=== PATIENT | female | born 1945 | race Caucasian/White ===

== ENCOUNTER 2020-08-04 18:35 | Emergency (ER) | payer MEDICARE, MEDICAID, SELFPAY ==
--- NOTE | ~2020-08-04 | XR_ITS ---
EXAMINATION: XR FOOT, RIGHT CLINICAL INFORMATION: Great toe infection. COMPARISON: Right foot radiographs dated 04/30/2016. TECHNIQUE: AP, lateral, and oblique views of the right foot. FINDINGS: Diffuse osteopenia. No displaced fracture. No dislocation. No significant joint space narrowing or marginal osteophytes. No osseous erosion. Small plantar calcaneal spur. XR/XR foot RT min 3V IMPRESSION: Diffuse osteopenia. No displaced fracture or dislocation. No osseous erosion or periosteal reaction.
[2020-08-04 19:58] VITALS: BP 192/67; PULSE 98; RESP 18; TEMP 36.8; O2SAT 96; BMI 26.4
[2020-08-04 21:25] LABS: MANUAL DIFF FLAG NO
--- NOTE | 2020-08-04 21:27 | ED_ITS ---
HPI - Extremity Injury (Lower) General Chief Complaint: Extremity Injury, Lower Stated Complaint: toe infection Time Seen by Provider: 08/04/20 21:15 Source: patient Mode of arrival: ambulatory Limitations: no limitations History of Present Illness HPI Narrative: Patient comes emergency room complaining of an embedded toenail on the great toe right foot. Patient states she has been on doxycycline for 1.5 weeks. Patient reports localized pain, no fever no chills, mild redness around the embedded toenail. Related Data Allergies Allergy/AdvReac Type Severity Reaction Status Date / Time ibuprofen [From ADVIL] Allergy Severe DUE TO Verified 08/04/20 19:58 CVA-BLEED tramadol [TRAMADOL] Allergy Severe UNKNOWN Verified 08/04/20 19:58 amoxicillin [AMOXICILLIN] Allergy Mild RASH Verified 08/04/20 19:58 Penicillins [PENICILLINS] Allergy Mild RASH Verified 08/04/20 19:58 oxycodone [Percocet] Allergy Unknown Difficulty Verified 08/04/20 19:58 Breathing From PERCOCET Allergy Severe DIFFICULTY Uncoded 11/19/19 14:35 BREATHING, INCREASED HEART RATE From ALEVE AdvReac Severe DUE TO Uncoded 11/19/19 14:35 CVA-BLEED Review of Systems Review of Systems: Constitutional : No Weight loss, No Fever, No Chills, No Night Sweats, No Fatigue, No Malaise ENT/Mouth : No Hearing loss, No Ear Pain, No Nasal Congestion, No Sinus Pain, No Hoarseness, No sore throat, No Rhinorrhea, No Swallowing Difficulty Eyes: No Eye Pain, No Swelling, No Redness, No Foreign Body, No Discharge, No Vision Changes Cardiovascular : No Chest Pain, No SOB, No Dyspnea on Exertion, No Orthopnea, No Edema, No Palpitations Respiratory : No Cough, No Sputum, No Wheezing, No Smoke Exposure, No Dyspnea Gastrointestinal : No Nausea, No Vomiting, No Diarrhea, No Constipation, No abdominal Pain, No Hematochezia, No Melena Genitourinary : no irregular bleeding, No Dysuria, No Urinary Frequency, No Hematuria, No Urinary Incontinence, No Urgency, No Flank Pain, No Urinary Flow Changes, No Hesitancy Musculoskeletal : No joint pain, No Myalgias, No Joint Swelling Skin : No Skin Lesions, embedded toenail on the medial aspect of the right great toe Neuro : No Weakness, No Numbness, No Paresthesias, No Loss of Consciousness, No Dizziness, No Headache Psych : No Anxiety/Panic, No Depression, No SI/HI/AH/VH, No Social Issues, Heme/Lymph: No Bruising, No Bleeding,No Lymphadenopathy Endocrine : No Polyuria, No Polydipsia, No Temperature Intolerance [facility] Past Medical History Medical History Cervical vertebral fusion Parathyroid adenoma Stroke Surgical History H/O: hysterectomy Social History Social History Advance Directives: No Advance Directives Information Provided: No Physical Exam Vital Signs: Vital Signs: Last Vital Signs Temp 98.2 F 08/04/20 19:58 Pulse 98 08/04/20 19:58 Resp 18 08/04/20 19:58 BP 192/67 H 08/04/20 19:58 Pulse Ox 96 08/04/20 19:58 Body Mass Index 26.4 Appearance: Alert. Oriented X3. No acute distress. Eyes: Pupils equal, round and reactive to light. ENT: Pharynx normal. Neck: Normal inspection. Neck supple. No lymph nodes noted. No crepitus CVS: Normal heart rate and rhythm. Pulses normal. Normal S1 and S2 Respiratory: No respiratory distress. Breath sounds normal. No Wheezing. No rales Abdomen: Soft and nontender. No rigidity. No distention. good BS x4 Skin: Skin warm and dry. Embedded toenail in the medial aspect of the right 1st toe is, mild localized redness Extremities: No lower extremity edema. No lower extremity edema. No Lacerations. No Rash Neuro: Oriented X 3. No motor deficit. No sensory deficit. Moving all extermities. No slurred speech. Course Course Course Narrative: Topical 4% lidocaine was applied ice to the affected area, patient tolerated well the procedure, the corner of the toenail was removed successfully. Patient reports no pain when pressing her toe. Patient instructed to finish a course of antibiotics. Patient given bacitracin topical MDM - Extremity Injury (Lower) Lab Data Result diagrams: 08/04/20 21:19 08/04/20 21:19 Labs: Lab Results 08/04/20 08/04/20 08/04/20 Range/Units 21:19 21:19 21:19 WBC 5.0 (4.8-10.8) X10*3/uL RBC 4.30 (4.20-5.50) X10*6/uL Hgb 12.9 (12.0-16.0) g/dl Hct 38.8 (37-47) % MCV 90.2 (80-98) fL MCH 30.0 (27.0-33.0) pg MCHC 33.2 (31.0-35.0) g/dl RDW 13.7 (11.0-16.0) % Plt Count 246 (160-400) X10*3/uL MPV 10.8 (9.4-12.3) fL Immature Gran % (Auto) 0.6 H (0.0-0.4) % Neut % (Auto) 55.5 (45-73) % Lymph % (Auto) 35.3 (20-40) % [place] % (Auto) 7.8 (2-11) % Eos % (Auto) 0.6 (0-4) % Baso % (Auto) 0.2 (0-2) % Lymph # (Auto) 1.8 (1.2-4.9) X10*3/uL [place] # (Auto) 0.4 (0.1-1.2) X10*3/uL Eos # (Auto) 0.0 (0.0-0.4) X10*3/uL Baso # (Auto) 0.0 (0.0-0.2) X10*3/uL Abs Immat Gran (auto) 0.03 (0.00-0.03) X10*3/uL Absolute Neuts (auto) 2.8 (2.0-8.3) X10*3/uL Absolute Nucleated RBC 0.000 (0.0-0.012) X10*3/uL Nucleated RBC % (auto) 0.0 (0.0-0.2) /100WBC Sodium 143 (135-145) mmol/L Potassium 3.5 (3.3-5.1) mmol/L Chloride 104 (96-108) mmol/L Carbon Dioxide 25 (22-29) mmol/L Anion Gap 18 (12-20) BUN 9 (9-16) mg/dL Creatinine 0.69 (0.5-1.4) mg/dL Estim Creat Clear Calc 59.3 Estimated GFR > 60 Random Glucose 128 H (60-115) mg/dL Lactic Acid 2.0 (0.5-2.0) mmol/L Calcium 9.3 (8.4-10.2) mg/dL Total Bilirubin 1.2 H (0.0-1.0) mg/dL AST 32 H (5-31) U/L ALT 36 H (0-31) U/L Alkaline Phosphatase 70 (39-117) U/L Total Protein 7.2 (6.5-8.0) g/dL Albumin 4.3 (3.5-5.0) g/dL Discharge Plan Discharge Clinical Impression: Embedded toenail Patient Disposition: Home, Self-Care Instructions: Ingrown Nail (ED) Additional Instructions: Please follow-up with your primary care physician tomorrow and with 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 If you have any worsening or new symptoms, please return to the emergency room or call 911
[2020-08-04 21:31] LABS: Basophils Percent Auto 0.2 % (0-2); Eosinophils Percent Auto 0.6 % (0-4); Hematocrit 38.8 % (37-47); Hemoglobin 12.9 g/dl (12.0-16.0); Imm Gran Abs Auto 0.03 X10*3/uL (0.00-0.03); Imm Gran Pct Auto 0.6 % (0.0-0.4); Lymphocytes Absolute Auto 1.8 X10*3/uL (1.2-4.9); Lymphocytes Percent Auto 35.3 % (20-40); Mean Corpuscular HGB Conc 33.2 g/dl (31.0-35.0); Mean Corpuscular Volume 90.2 fL (80-98); Mean Platelet Volume 10.8 fL (9.4-12.3); Monocytes Absolute Auto 0.4 X10*3/uL (0.1-1.2); Monocytes Percent Auto 7.8 % (2-11); Neutrophils Absolute Auto 2.8 X10*3/uL (2.0-8.3); Neutrophils Percent Auto 55.5 % (45-73); Platelet Count 246 X10*3/uL (160-400); Red Cell Distribution Width 13.7 % (11.0-16.0)
[2020-08-04 21:51] LABS: Alanine Aminotransferase 36 U/L (0-31); Albumin Level 4.3 g/dL (3.5-5.0); Alkaline Phosphatase 70 U/L (39-117); Anion Gap 18 (12-20); Aspartate Amino Transferase 32 U/L (5-31); Bilirubin Total 1.2 mg/dL (0.0-1.0); Blood Urea Nitrogen 9 mg/dL (9-16); Calcium 9.3 mg/dL (8.4-10.2); Carbon Dioxide 25 mmol/L (22-29); Chloride 104 mmol/L (96-108); Creatinine Clr Calc Pharmacy 59.3; Estimated Glomerular Filt Rate > 60; Glucose Random 128 mg/dL (60-115); Potassium 3.5 mmol/L (3.3-5.1); Sodium 143 mmol/L (135-145); Total Protein 7.2 g/dL (6.5-8.0)
[2020-08-04] MEDS: Lidocaine 4 % Cream KIT 1 APPL TOPICAL (23:32)
== END 2020-08-04 23:37 | disposition home or self-care (01) ==
PROVIDERS: Emergency Provider Emergency Medicine; PCP Internal Medicine
DX: L60.0 Ingrowing nail (principal); M85.871 Other specified disorders of bone density and structure, right ankle and foot; Z86.73 Personal history of transient ischemic attack (TIA), and cerebral infarction without residual deficits
CPT/HCPCS: 11765; 36415; 73630; 80053; 83605; 85025; 87040; 99284

== ENCOUNTER 2020-11-11 14:28 | Outpatient (REF) | payer MEDICARE, MEDICAID, SELFPAY ==
--- NOTE | ~2020-11-11 | US_ITS ---
EXAMINATION: US EXTRACRANIAL CAROTID DUPLEX, BILATERAL CLINICAL INFORMATION: History of hypertension, hyperlipidemia, CVA, carotid artery disease status post right endarterectomy in January 2018. COMPARISON: 11/03/2019, 11/10/2018, 05/14/2018 TECHNIQUE: Real-time ultrasound and Doppler techniques (integrating B-mode 2-D vascular images, Doppler spectral analysis and color-flow Doppler imaging) were utilized to interrogate the extracranial carotid arteries, the vertebral arteries and proximal subclavian arteries bilaterally. The degree of stenosis is determined by criteria similar to NASCET. FINDINGS: Right Side: 1. There is moderate atherosclerotic plaque seen in the bifurcation/proximal ICA region. 2. The common carotid artery PSV proximally is 108 cm/s and distally 111 cm/s. 3. The proximal internal carotid artery velocities are 130 cm/s systolic and 28 cm/s diastolic. 4. The proximal external carotid artery PSV is 166 cm/s. 5. The vertebral artery shows antegrade flow. 6. The subclavian artery waveforms are normal. Left Side: 1. There is moderate atherosclerotic plaque seen in the bifurcation/proximal ICA region. 2. The common carotid artery PSV proximally is 99 cm/s and distally 76 cm/s. 3. The proximal internal carotid artery velocities are 253 cm/s systolic and 44 cm/s diastolic. 4. The proximal external carotid artery PSV is 280 cm/s. 5. The vertebral artery shows antegrade flow. 6. The subclavian artery waveforms are normal. US/US carotid duplex BI IMPRESSION: 1. RIGHT: Moderate, hemodynamically significant stenosis of the proximal right internal carotid artery corresponding to a 50-79% stenosis by velocity criteria. The category of disease has increased from the 2020 comparison. (Previously 0-49% stenosis). 2. LEFT: Moderate, hemodynamically significant stenosis of the proximal left internal carotid artery corresponding to a 50-79% stenosis by velocity criteria. The category of disease is stable from the 2020 comparison. 3. Moderate hemodynamically significant stenosis of the left external carotid artery is stable. 4. Normal bilateral subclavian artery velocities and waveforms.
== END 2020-11-11 14:29 | disposition home or self-care (01) ==
LOC: HO.HMGCX 14:28
PROVIDERS: PCP Internal Medicine; Visit Provider Surgery Vascular Surgery
DX: I65.21 Occlusion and stenosis of right carotid artery (principal)
CPT/HCPCS: 93880

== ENCOUNTER → 2020-11-21 10:25 | Outpatient (BNVA) | payer MEDICARE, MEDICAID, SELFPAY | PROVIDERS: PCP Internal Medicine; Referring Provider Internal Medicine; Visit Provider Internal Medicine Cardiovascular Disease | DX: I65.29 Occlusion and stenosis of unspecified carotid artery (principal); I69.30 Unspecified sequelae of cerebral infarction; I10 Essential (primary) hypertension | CPT/HCPCS: 93005; 99212 ==

== ENCOUNTER → 2020-12-20 11:15 | Outpatient (BNVA) | payer MEDICARE, MEDICAID, SELFPAY | PROVIDERS: PCP Internal Medicine; Visit Provider Surgery Vascular Surgery | DX: I65.29 Occlusion and stenosis of unspecified carotid artery (principal) | CPT/HCPCS: 99212 ==

== ENCOUNTER 2021-01-03 10:16 | Outpatient (REF) | payer MEDICARE, MEDICAID, SELFPAY ==
[2021-01-03 11:27] LABS: MANUAL DIFF FLAG NO
[2021-01-03 11:33] LABS: Basophils Percent Auto 0.8 % (0-2); Eosinophils Absolute Auto 0.1 X10*3/uL (0.0-0.4); Eosinophils Percent Auto 1.5 % (0-4); Hemoglobin 13.7 g/dl (12.0-16.0); Imm Gran Abs Auto 0.03 X10*3/uL (0.00-0.03); Imm Gran Pct Auto 0.6 % (0.0-0.4); Lymphocytes Absolute Auto 2.7 X10*3/uL (1.2-4.9); Lymphocytes Percent Auto 51.7 % (20-40); Mean Corpuscular HGB Conc 33.4 g/dl (31.0-35.0); Mean Corpuscular Hemoglobin 30.2 pg (27.0-33.0); Mean Corpuscular Volume 90.5 fL (80.0-98.0); Mean Platelet Volume 11.2 fL (9.4-12.3); Monocytes Absolute Auto 0.4 X10*3/uL (0.1-1.2); Monocytes Percent Auto 6.9 % (2-11); Neutrophils Absolute Auto 1.99 x10*3/uL (2.0-8.3); Neutrophils Percent Auto 38.5 % (45-73); Platelet Count 192 X10*3/uL (160-400); Red Blood Count 4.53 X10*6/uL (4.20-5.50); Red Cell Distribution Width 13.5 % (11.0-16.0); White Blood Count 5.2 X10*3/uL (4.8-10.8)
[2021-01-03 12:09] LABS: Vitamin D 25-OH Total 25.6 ng/mL (>30)
[2021-01-03 12:21] LABS: Alanine Aminotransferase 15 U/L (0-31); Albumin Level 4.5 g/dL (3.5-5.0); Alkaline Phosphatase 72 U/L (39-117); Anion Gap 15 (12-20); Aspartate Amino Transferase 19 U/L (5-31); Bilirubin Total 1.5 mg/dL (0.0-1.0); Blood Urea Nitrogen 13 mg/dL (9-16); Calcium 9.5 mg/dL (8.4-10.2); Carbon Dioxide 28 mmol/L (22-29); Chloride 105 mmol/L (96-108); Cholesterol 180 mg/dL; Estimated Glomerular Filt Rate > 60; Glucose Fasting 113 mg/dL (60-99); HDL Cholesterol 47 mg/dL; LDL Cholesterol Calculated 106 mg/dl; Potassium 3.8 mmol/L (3.3-5.1); Sodium 144 mmol/L (135-145); Total Protein 7.5 g/dL (6.5-8.0); Triglycerides 137 mg/dL
== END 2021-01-03 10:17 | disposition home or self-care (01) ==
LOC: HO.HMGCLDS 10:16
PROVIDERS: PCP Internal Medicine; Visit Provider Internal Medicine
DX: I10 Essential (primary) hypertension (principal); E78.00 Pure hypercholesterolemia, unspecified; E55.9 Vitamin D deficiency, unspecified; Z86.73 Personal history of transient ischemic attack (TIA), and cerebral infarction without residual deficits
CPT/HCPCS: 36415; 80053; 80061; 82306; 85025

== ENCOUNTER 2021-02-23 10:14 | Outpatient (REF) | payer MEDICARE, MEDICAID, SELFPAY ==
--- NOTE | ~2021-02-23 | MM_ITS ---
EXAMINATION: BONE DENSITOMETRY CLINICAL INDICATION: Postmenopausal. COMPARISON: Previous BD dated 07/27/2016 and baseline BD dated 02/05/2008. TECHNIQUE: Using a [employer] DXA System (software version: 13.1) manufactured by [employer], dual-energy x-ray absorptiometry was performed of the lumbar spine and left hip. The images are of good technical quality. Summary results are attached. FINDINGS: AP SPINE L1-L4: Current: BMD 0.923 g/cm2, Z-score -0.4, T-score -2.1, osteopenia, 3.1% increase from previous, 9.2% decrease from baseline (<5% change is not significant). Prior: BMD 0.895 g/cm2. Baseline: BMD 1.016 g/cm2. LEFT FEMUR, NECK: Current: BMD 0.566 g/cm2, Z-score -1.5, T-score -3.4, osteoporosis. Prior: BMD 0.584 g/cm2. Baseline: BMD 0.655 g/cm2. LEFT FEMUR, TOTAL: Current: BMD 0.676 g/cm2, Z-score -0.9, T-score -2.6, osteoporosis, 0.3% increase from previous, 10.5% decrease from baseline (<5% change is not significant). Prior: BMD 0.674 g/cm2. Baseline: BMD 0.755 g/cm2. IDENTIFIED RISK FACTORS: Early menopause, secondary osteoporosis, low calcium intake, hysterectomy, bilateral oophorectomy. HISTORY OF FRACTURE: None listed. MEDICATIONS: Vitamin D. MM/XR DEXA axial skeleton IMPRESSION: 1. DIAGNOSIS: Osteoporosis based on the lowest T-score value of -3.4 in the femoral neck applying World Health Organization criteria. 2. 10-YEAR FRACTURE RISK PREDICTION, FRAX: According to the guidelines, FRAX calculation should only be performed on patients in the osteopenia bone density category. 3. Treatment Recommendations: NOF guidelines recommend consideration for treatment in postmenopausal women and men age 50 and older presenting with the following: -A hip or vertebral (clinical or morphometric) fracture. -T-score less than or equal to -2.5 at the femoral neck or spine after appropriate evaluation to exclude secondary causes. -Low bone mass at the hip or spine and a 10-year fracture probability by FRAX of greater than or equal to 3% for hip fracture or greater than or equal to 20% for major osteoporotic fracture based on the [place] adapted WHO algorithm. 4. Other Recommendations: All treatment decisions require clinical judgment and consideration of individual patient factors, including patient preferences, comorbidities, previous drug use, risk factors not captured in the FRAX model (e.g. frailty, falls, vitamin D deficiency, increased bone turnover, interval significant decline in bone density) and possible under or overestimation of fracture risk by FRAX. Additional medical evaluation for secondary cause of low bone mineral density may be appropriate. FUTURE SCAN RECOMMENDATION: People with diagnosed cases of osteoporosis or at high risk for fracture should have regular bone mineral density tests. For patients eligible for Medicare, routine testing is allowed once every 2 years. The testing frequency can be increased to one year for patients who have rapidly progressing disease, those who are receiving or discontinuing medical therapy to restore bone mass, or have additional risk factors.
--- NOTE | ~2021-02-23 | MM_ITS ---
EXAMINATION: MM SCREENING DIGITAL BREAST TOMOSYNTHESIS, BILATERAL CLINICAL INFORMATION: Screening. Asymptomatic. Family history breast cancer, daughter. The lifetime risk of breast cancer based on the Tyrer-Cuzick Model is 3%. COMPARISON: Mammography: 12/10/2017, 07/27/2016, 12/25/2013 TECHNIQUE: Digital breast tomosynthesis is performed in both the craniocaudal and mediolateral oblique views along with computer-aided detection (CAD). Synthesized 2D images are generated from the tomosynthesis. Additional exaggerated left CC view is provided. Technically challenging exam requiring 2 mammography technologists to optimize positioning (prior stroke with right-sided symptoms). FINDINGS: There are scattered areas of fibroglandular density (ACR BI-RADS breast composition Category b). There is some limitation to the [id number] on the right similar to prior studies. Parenchymal pattern is similar to prior exams. There are no significant masses, abnormal calcifications, or other abnormalities. There is no developing density or architectural abnormality. The axilla and skin contours are unremarkable. No significant changes. MM/MM tomosynthesis screening BI IMPRESSION: Technically challenging exam. No significant changes from prior studies. ASSESSMENT: BI-RADS 2: Benign RECOMMENDATION: Routine annual mammography screening. This patient's information was entered into a reminder system with a target due date for their next mammogram.
== END 2021-02-23 10:15 | disposition home or self-care (01) ==
LOC: HO.MAMMO 10:14
PROVIDERS: Visit Provider Internal Medicine
DX: Z12.31 Encounter for screening mammogram for malignant neoplasm of breast (principal); Z80.3 Family history of malignant neoplasm of breast; Z13.820 Encounter for screening for osteoporosis; Z78.0 Asymptomatic menopausal state; E58 Dietary calcium deficiency; Z90.710 Acquired absence of both cervix and uterus; Z90.722 Acquired absence of ovaries, bilateral
CPT/HCPCS: 77063; 77067; 77080

== ENCOUNTER 2021-05-03 12:03 | Outpatient (REF) | payer MEDICARE, MEDICAID, SELFPAY ==
--- NOTE | ~2021-05-03 | XR_ITS ---
EXAMINATION: XR FOOT, RIGHT CLINICAL INFORMATION: Right foot pain COMPARISON: Right foot radiograph from 08/04/2020 TECHNIQUE: AP, lateral, and oblique views of the right foot. FINDINGS: Osteopenia which decreases sensitivity for fracture evaluation. No acute visible fracture or dislocation. Small plantar calcaneal heel spur. Spurring of the dorsal midfoot. Joint spaces and alignment are maintained. Soft tissues are unremarkable. XR/XR foot RT min 3V IMPRESSION: 1. Osteopenia which decreases sensitivity for fracture evaluation. 2. No acute visible fracture or dislocation. 3. Small plantar calcaneal heel spur. 4. Spurring of the dorsal midfoot.
== END 2021-05-03 12:04 | disposition home or self-care (01) ==
LOC: HO.XRAY 12:03
PROVIDERS: PCP Internal Medicine; Visit Provider Internal Medicine
DX: M79.671 Pain in right foot (principal); M77.31 Calcaneal spur, right foot; M85.80 Other specified disorders of bone density and structure, unspecified site; Z86.73 Personal history of transient ischemic attack (TIA), and cerebral infarction without residual deficits
CPT/HCPCS: 73630

== ENCOUNTER 2021-12-05 13:00 | Outpatient (REF) | payer MEDICARE, MEDICAID, SELFPAY | END 2021-12-05 13:01 | disposition home or self-care (01) | LOC: HO.HMGCX 13:00 | PROVIDERS: PCP Internal Medicine; Visit Provider Surgery Vascular Surgery | DX: I65.22 Occlusion and stenosis of left carotid artery (principal) | CPT/HCPCS: 93880 ==

== ENCOUNTER → 2021-12-28 13:33 | Outpatient (BNVA) | payer MEDICARE, MEDICAID, SELFPAY | PROVIDERS: PCP Internal Medicine; Visit Provider Surgery Vascular Surgery | DX: I65.29 Occlusion and stenosis of unspecified carotid artery (principal) | CPT/HCPCS: 99212 ==

== ENCOUNTER 2022-07-31 09:37 | Outpatient (REF) | payer MEDICARE, MEDICAID, SELFPAY ==
[2022-07-31 11:08] LABS: MANUAL DIFF FLAG NO
[2022-07-31 11:34] LABS: Basophils Percent Auto 0.6 % (0-2); Eosinophils Absolute Auto 0.1 X10*3/uL (0.0-0.4); Eosinophils Percent Auto 2.1 % (0-4); Hematocrit 41.5 % (37.0-47.0); Hemoglobin 13.6 g/dl (12.0-16.0); Imm Gran Abs Auto 0.01 X10*3/uL (0.00-0.03); Imm Gran Pct Auto 0.2 % (0.0-0.4); Lymphocytes Absolute Auto 2.3 X10*3/uL (1.2-4.9); Lymphocytes Percent Auto 49.8 % (20-40); Mean Corpuscular HGB Conc 32.8 g/dl (31.0-35.0); Mean Corpuscular Volume 91.6 fL (80.0-98.0); Mean Platelet Volume 11.1 fL (9.4-12.3); Monocytes Absolute Auto 0.3 X10*3/uL (0.1-1.2); Monocytes Percent Auto 6.4 % (2-11); Neutrophils Absolute Auto 1.9 x10*3/uL (2.0-8.3); Neutrophils Percent Auto 40.9 % (45-73); Platelet Count 231 X10*3/uL (160-400); Red Blood Count 4.53 X10*6/uL (4.20-5.50); White Blood Count 4.7 X10*3/uL (4.8-10.8)
[2022-07-31 12:02] LABS: Alanine Aminotransferase 18 U/L (0-31); Albumin Level 4.3 g/dL (3.5-5.0); Alkaline Phosphatase 70 U/L (39-117); Anion Gap 12 (12-20); Aspartate Amino Transferase 17 U/L (5-31); Bilirubin Total 1.1 mg/dL (0.0-1.0); Blood Urea Nitrogen 12 mg/dL (9-16); Calcium 9.5 mg/dL (8.4-10.2); Carbon Dioxide 29 mmol/L (22-29); Chloride 105 mmol/L (96-108); Cholesterol 199 mg/dL; Estimated Glomerular Filt Rate > 60; Glucose Fasting 113 mg/dL (60-99); HDL Cholesterol 47 mg/dL; LDL Cholesterol Calculated 127 mg/dl; Potassium 3.8 mmol/L (3.3-5.1); Sodium 142 mmol/L (135-145); Total Protein 7.3 g/dL (6.5-8.0); Triglycerides 126 mg/dL
[2022-07-31 12:21] LABS: Vitamin D 25-OH Total 33.2 ng/mL (>30)
== END 2022-07-31 09:38 | disposition home or self-care (01) ==
LOC: HO.HMGCLDS 09:37
PROVIDERS: PCP Internal Medicine; Visit Provider Internal Medicine
DX: I10 Essential (primary) hypertension (principal); E78.70 Disorder of bile acid and cholesterol metabolism, unspecified; E55.9 Vitamin D deficiency, unspecified; Z86.73 Personal history of transient ischemic attack (TIA), and cerebral infarction without residual deficits
CPT/HCPCS: 36415; 80053; 80061; 82306; 85025

== ENCOUNTER 2022-11-19 10:27 | Outpatient (REF) | payer MEDICARE, MEDICAID, SELFPAY ==
--- NOTE | ~2022-11-19 | US_ITS ---
EXAMINATION: US EXTRACRANIAL CAROTID DUPLEX, BILATERAL CLINICAL INFORMATION: Carotid stenosis COMPARISON: Carotid ultrasound 12/05/2021 TECHNIQUE: Real-time ultrasound and Doppler techniques (integrating B-mode 2-D vascular images, Doppler spectral analysis and color-flow Doppler imaging) were utilized to interrogate the extracranial carotid arteries, the vertebral arteries and proximal subclavian arteries bilaterally. The degree of stenosis is determined by criteria similar to NASCET. FINDINGS: Right Side: 1. There is mild atherosclerotic plaque seen in the bifurcation/proximal ICA region. 2. The common carotid artery PSV proximally is 126 cm/s and distally 108 cm/s. 3. The proximal internal carotid artery velocities are 87 cm/s systolic and 15 cm/s diastolic. 4. The proximal external carotid artery PSV is 147 cm/s. 5. The vertebral artery shows antegrade flow. 6. The subclavian artery waveforms are normal. Left Side: 1. There is mild atherosclerotic plaque seen in the bifurcation/proximal ICA region. 2. The common carotid artery PSV proximally is 86 cm/s and distally 80 cm/s. 3. The proximal internal carotid artery velocities are 269 cm/s systolic and 38 cm/s diastolic. 4. The proximal external carotid artery PSV is 317 cm/s. 5. The vertebral artery shows antegrade flow. 6. The subclavian artery waveforms are normal. US/US carotid duplex BI IMPRESSION: 1. RIGHT: Minimal, non-hemodynamically significant stenosis of the proximal right internal carotid artery corresponding to a 0-49% stenosis by velocity criteria. 2. LEFT: Moderate, hemodynamically significant stenosis of the proximal left internal carotid artery corresponding to a 50-79% stenosis by velocity criteria. 3. There is no change in the category severity of disease when compared to the previous study dated 12/05/2021. 4. An arrhythmia is present.
== END 2022-11-19 10:28 | disposition home or self-care (01) ==
LOC: HO.HMGCX 10:27
PROVIDERS: PCP Internal Medicine; Visit Provider Surgery Vascular Surgery
DX: I65.23 Occlusion and stenosis of bilateral carotid arteries (principal)
CPT/HCPCS: 93880

== ENCOUNTER 2022-12-24 13:46 | Outpatient (REF) | payer MEDICARE, MEDICAID, SELFPAY ==
--- NOTE | ~2022-12-24 | XR_ITS ---
EXAMINATION: XR SHOULDER, LEFT CLINICAL INFORMATION: Pain. COMPARISON: Radiographs dated 10/30/2007. TECHNIQUE: AP neutral and scapular Y views of the left shoulder are submitted. FINDINGS: There is bony demineralization. The glenohumeral joint is intact. The acromioclavicular and coracoclavicular intervals are normal. There are amorphous soft tissue calcifications towards the superior aspect of the acromioclavicular joint. No fracture or dislocation is seen. There is minimal calcific tightness of the left rotator cuff insertion. No foreign body is seen. There is no left pneumothorax. Cervicothoracic orthopedic hardware is noted. XR/XR shoulder LT min 2V IMPRESSION: 1. No fracture or dislocation is seen. 2. There is degenerative change of the acromioclavicular joint. 3. There is minimal calcific tendinitis of the left rotator cuff.
== END 2022-12-24 13:47 | disposition home or self-care (01) ==
LOC: HO.XRAY 13:46
PROVIDERS: PCP Internal Medicine; Visit Provider Internal Medicine
DX: M25.512 Pain in left shoulder (principal)
CPT/HCPCS: 73030

== ENCOUNTER 2022-12-25 11:04 | Outpatient (AMB) | payer MEDICARE, MEDICAID, SELFPAY ==
--- NOTE | 2022-12-25 11:05 | MHC.OFFVIS ---
Intake Vital Signs 12/25/22 11:07 Height 5 ft Weight 143 lb BMI 27.9 Intake Visit Reasons: Follow Up 11/19 Carotid Intake Note: pt here for a follow up on carotid duplex US .Pt says shes doing good nd has no concerns at the momment Accompanied by: Daughter Allergies ibuprofen [From ADVIL] Allergy (Severe, Verified 12/28/21 13:40) DUE TO CVA-BLEED tramadol [TRAMADOL] Allergy (Severe, Verified 12/28/21 13:40) UNKNOWN amoxicillin [AMOXICILLIN] Allergy (Mild, Verified 12/28/21 13:40) RASH Penicillins [PENICILLINS] Allergy (Mild, Verified 12/28/21 13:40) RASH oxycodone [Percocet] Allergy (Unknown, Verified 12/28/21 13:40) Difficulty Breathing From PERCOCET Allergy (Severe, Uncoded 12/28/21 13:40) DIFFICULTY BREATHING, INCREASED HEART RATE From ALEVE Adverse Reaction (Severe, Uncoded 12/28/21 13:40) DUE TO CVA-BLEED HPI Follow Up 11/19 Carotid HPI Details Very pleasant 77-year-old female presents for routine surveillance follow-up regarding her carotids. Amazingly we performed a right carotid endarterectomy 5 years prior. She reports no interval issues in terms of her carotids. She is noticing some left shoulder pain which she is being worked up by her primary care team for. She now presents for surveillance follow-up with carotid ultrasound. [facility] Medical History Parathyroid adenoma Cervical vertebral fusion Stroke Surgical History History of carpal tunnel release Hx of thyroidectomy H/O toe surgery History of CEA (carotid endarterectomy) H/O: hysterectomy Family History Mother Heart disease Diabetes Father Heart disease Daughter Breast cancer HTN (hypertension) Daughter HTN (hypertension) Hearing loss Sister Pancreatic cancer Sister Stroke Brother Prostate cancer Social History Alcohol intake: never Patient Tobacco Use Status: Never used Tobacco Review of Systems Const All systems reviewed & are unremarkable except as noted in HPI and below Reports no additional complaints ENT Reports Normal hearing present Card Denies chest pain, Denies chest pain at rest, Denies chest pain with activity and Denies pedal edema Resp Denies cough GI Denies abdominal pain Musc Denies abnormal gait, Denies muscle cramps and Denies radiating pain into limb Skin/Breast Denies skin ulcer and Denies wounds Neuro Reports Normal hearing present and Denies abnormal gait Psych Reports no additional complaints Physical Exam Vital Signs: BMI result Body Mass Index 27.9 Const General: cooperative, healthy appearing and comfortable Orientation/consciousness: oriented to person, oriented to place and oriented to time HEENT Head: Yes normal to inspection Neck Neck: Yes normal visual inspection Carotids: no bruits Chest Chest palpation & inspection: normal inspection of the chest Resp Effort & Inspection: normal respiratory effort and able to speak in complete sentences Auscultation: clear to auscultation bilaterally, no crackles, no rales, no rhonchi and no wheezes Cardio Other: Upper extremities have palpable brachial radial and ulnar pulses bilaterally Rate: regular rate Rhythm: regular rhythm Heart sounds: S1 normal heart sound present and S2 normal heart sound present Bruits: no carotid bruits Peripheral pulses: Peripheral pulses 2+ throughout GI Inspection: Yes normal to inspection Skin Wounds: no wounds Hair: normal Neuro General: oriented to person, oriented to place and oriented to time Cranial nerves: Yes CN's II-XII intact bilaterally and Yes Normal hearing present Cognition (Neuro): normal cognition Motor exam (neuro): 5/5 motor strength present throughout Extrem Other: venous exam: No significant superficial varicosities or spider telangiectasias, minimal edema General: No clubbing, No cyanosis and No edema Psych Appearance: grossly normal Mental Status: mental status grossly normal Speech and movement: Normal speech and movement present Results Reviewed Results Reviewed: Carotid ultrasound dated 11/19/2022 demonstrates right-sided 0-49% stenosis with a peak systolic of 87 and left-sided stenosis 50-79 with a peak systolic of 269. Written reports and images were reviewed. Assessment & Plan Assessment & Plan (1) Carotid stenosis: Comment: Right carotid endarterectomy 01/27/2018 Code(s): I65.29 - Occlusion and stenosis of unspecified carotid artery Qualifiers: Laterality: bilateral Qualified Code(s): I65.23 - Occlusion and stenosis of bilateral carotid arteries Plan: In short patient has asymptomatic carotid disease. We have reviewed signs and symptoms of a stroke. We also discussed risk factor modification inclusive a healthy diet low in cholesterol. The patient will follow up with us with surveillance ultrasound of the carotids 1 year. Should there be any changes or signs or symptoms of a stroke we will be happy to see them back sooner. Thank you for allowing us to participate in this patient's care. If there are any questions or concerns please do not hesitate to contact us. Orders: Orders US carotid duplex BI 364 Days I65.23 - Occlusion and stenosis of bilateral carotid arteries Coding Level of Care Code Est Pt Level 4 (17416) Diagnoses Bilateral carotid artery stenosis I65.23 Laterality: bilateral
[2022-12-25 11:07] VITALS: BMI 27.9
== END 2022-12-25 11:18 | disposition home or self-care (01) ==
PROVIDERS: PCP Internal Medicine; Visit Provider Surgery Vascular Surgery
DX: I65.23 Occlusion and stenosis of bilateral carotid arteries (principal)
CPT/HCPCS: 99213

== ENCOUNTER → 2022-12-25 11:04 | Outpatient (BNVA) | payer MEDICARE, MEDICAID, SELFPAY | PROVIDERS: PCP Internal Medicine; Visit Provider Surgery Vascular Surgery | DX: I65.23 Occlusion and stenosis of bilateral carotid arteries (principal); Z98.890 Other specified postprocedural states | CPT/HCPCS: 36415; 80053; 85025; 99212 ==

== ENCOUNTER 2022-12-25 12:49 | Outpatient (REF) | payer MEDICARE, MEDICAID, SELFPAY ==
[2022-12-25 16:17] LABS: MANUAL DIFF FLAG NO
[2022-12-25 16:46] LABS: Alanine Aminotransferase 29 U/L (0-31); Albumin Level 4.4 g/dL (3.5-5.0); Alkaline Phosphatase 72 U/L (39-117); Anion Gap 17 (12-20); Aspartate Amino Transferase 23 U/L (5-31); Basophils Percent Auto 0.4 % (0-2); Bilirubin Total 0.9 mg/dL (0.0-1.0); Blood Urea Nitrogen 11 mg/dL (9-16); Calcium 10.1 mg/dL (8.4-10.2); Carbon Dioxide 26 mmol/L (22-29); Chloride 107 mmol/L (96-108); Eosinophils Absolute Auto 0.1 X10*3/uL (0.0-0.4); Eosinophils Percent Auto 0.7 % (0-4); Estimated Glomerular Filt Rate > 60; Glucose Random 123 mg/dL (60-115); Hematocrit 41.7 % (37.0-47.0); Hemoglobin 13.5 g/dl (12.0-16.0); Imm Gran Abs Auto 0.04 X10*3/uL (0.00-0.03); Imm Gran Pct Auto 0.6 % (0.0-0.4); Lymphocytes Absolute Auto 1.6 X10*3/uL (1.2-4.9); Lymphocytes Percent Auto 21.8 % (20-40); Mean Corpuscular HGB Conc 32.4 g/dl (31.0-35.0); Mean Corpuscular Hemoglobin 30.7 pg (27.0-33.0); Mean Corpuscular Volume 94.8 fL (80.0-98.0); Mean Platelet Volume 11.5 fL (9.4-12.3); Monocytes Absolute Auto 0.5 X10*3/uL (0.1-1.2); Monocytes Percent Auto 6.3 % (2-11); Neutrophils Percent Auto 70.2 % (45-73); Platelet Count 209 X10*3/uL (160-400); Potassium 3.9 mmol/L (3.3-5.1); Sodium 146 mmol/L (135-145); Total Protein 7.8 g/dL (6.5-8.0); White Blood Count 7.2 X10*3/uL (4.8-10.8)
== END 2022-12-25 12:50 | disposition home or self-care (01) ==
LOC: HO.HMGCLDS 12:49
PROVIDERS: PCP Internal Medicine; Visit Provider Internal Medicine
DX: Z13.89 Encounter for screening for other disorder (principal)
CPT/HCPCS: 36415; 80053; 85025

== ENCOUNTER 2023-01-21 11:19 | Outpatient (AMB) | payer MEDICARE, MEDICAID, SELFPAY ==
--- NOTE | 2023-01-21 11:21 | MHC.OFFVIS ---
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 Patient reports pain has been present for about a month. Denies injury, numbness or tingling. She was seen by her PCP who ordered xrays and referred to orthopedics. States a cortisone injection on 01/01/23, that helped however she continues to have a mild pain. Denies numbness or tingling. Finds little relief with Tylenol. Patient reports she is unable to use her right arm due to a stroke. 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 She had a cortisone injection on 01/01/23 which provided her relief but she continues to have mild pain in her left shoulder. She was seen by her PCP who ordered x-rays and referred her to our office. She denies any numbness or tingling and has not had any injury in the past. She finds mild relief with Tylenol. She reports she is unable to use her right arm due to a stroke. REPLACED BY [facility] Medical History (Updated 01/21/23 @ 11:47 by Scott Cuevas PA-C) Parathyroid adenoma Cervical vertebral fusion Stroke Surgical History (Updated 01/21/23 @ 11:30 by TOBIAS Fofana) History of cataract surgery History of carpal tunnel release Hx of thyroidectomy H/O toe surgery History of CEA (carotid endarterectomy) H/O: hysterectomy Family History Mother Heart disease Diabetes Father Heart disease Daughter Breast cancer HTN (hypertension) Daughter HTN (hypertension) Hearing loss Sister Pancreatic cancer Sister Stroke Brother Prostate cancer Alcohol intake: never Patient Tobacco Use Status: Never used Tobacco Review of Systems Const All systems reviewed & are unremarkable except as noted in HPI and below Physical Exam Vital Signs: BMI result Body Mass Index 27.9 Const General: cooperative, healthy appearing, comfortable, no acute distress, well developed and alert Orientation/consciousness: patient oriented x3 HEENT Head: Yes normal to inspection, Yes normocephalic and Yes atraumatic Eyes General: appearance normal, both eyes and all related structures Resp Effort & Inspection: normal respiratory effort and able to speak in complete sentences Cardio Rate: regular rate Peripheral pulses: Peripheral pulses 2+ throughout GI Palpation (GI): Soft to palpation Skin Lesions: no lesions Rashes: no rashes Neuro General: patient oriented x3 Extrem Other: Left shoulder normal to inspection. Tenderness over the bicipital groove and along the deltoid region of the shoulder. Forward flexion to 175, external rotation to 90, internal rotation to S1. 5/5 RTC strength. Positive Benton and cross body abduction. NVI. Results Reviewed Results Reviewed: left shoudler xrays obtained on 12/24/22 IMPRESSION: 1. No fracture or dislocation is seen. 2. There is degenerative change of the acromioclavicular joint. 3. There is minimal calcific tendinitis of the left rotator cuff. Assessment & Plan Assessment & Plan (1) Tendonitis of left rotator cuff: Code(s): M75.82 - Other shoulder lesions, left shoulder (2) Osteoarthritis of acromioclavicular joint: Code(s): M19.019 - Primary osteoarthritis, unspecified shoulder Plan We discussed options which include PT, NSAIDs and injections. The patient will defer on the injection today and proceed with PT and NSAIDs. If symptoms persist, the patient will contact me for an injection, otherwise, PRN. Orders: Orders PT Evaluation and Treatment 01/21/23 M19.019 - Primary osteoarthritis, unspecified shoulder, M75.82 - Other shoulder lesions, left shoulder Patient Instructions: Scribed for Scott Cuevas PA-C, by Paul Jimenez, medical coordinator pesticide use, on 01/21/2023 at 11:15 AM SCOOBY. Scott Fields PA-C, have personally reviewed and agree with the information entered by the scribe. Coding Level of Care Code New Pt Level 3 (55277) Diagnoses Tendonitis of left rotator cuff M75.82 Osteoarthritis of acromioclavicular joint M19.019
[2023-01-21 11:23] VITALS: BMI 27.9
== END 2023-01-21 12:04 | disposition home or self-care (01) ==
PROVIDERS: PCP Internal Medicine; Visit Provider Physician Assistant
DX: M75.82 Other shoulder lesions, left shoulder (principal); M19.012 Primary osteoarthritis, left shoulder
CPT/HCPCS: 99203

== ENCOUNTER → 2023-01-21 11:19 | Outpatient (BNVA) | payer MEDICARE, MEDICAID, SELFPAY | PROVIDERS: PCP Internal Medicine; Visit Provider Physician Assistant | DX: M75.82 Other shoulder lesions, left shoulder (principal); M19.019 Primary osteoarthritis, unspecified shoulder | CPT/HCPCS: 99202 ==

== ENCOUNTER 2023-04-30 15:18 | Outpatient (REF) | payer MEDICARE, MEDICAID, SELFPAY ==
--- NOTE | ~2023-04-30 | XR_ITS ---
EXAMINATION: XR KNEE, RIGHT XR ANKLE, RIGHT CLINICAL INFORMATION: Pain. COMPARISON: Right ankle of 04/30/2016. Right foot of 05/23/2021. TECHNIQUE: 3 views of the right ankle. 4 views of the right knee. FINDINGS: RIGHT KNEE: The bones are diffusely demineralized. Chondrocalcinosis in the medial and lateral compartments. Mild narrowing of the medial and lateral compartments. Scattered soft tissue calcifications are likely vascular. No significant joint effusion. RIGHT ANKLE: Soft tissue fold overlies the posterior superior aspect of the calcaneus on the lateral view, limiting evaluation. Repeat views should be obtained at no charge to the patient if there is concern for fracture or other pathology in this region. An addendum will be dictated if the view is provided. The bones are diffusely demineralized. Small plantar calcaneal spur. Diffuse soft tissue swelling. Degenerative changes at the midfoot. Tiny calcific/ossific focus inferior to the medial malleolus. XR/XR ankle RT min 3V IMPRESSION: 1. Chondrocalcinosis in the medial and lateral compartments of the right knee. 2. Soft tissue fold overlies the posterior superior aspect of the calcaneus on the lateral view, limiting evaluation. Repeat views should be obtained at no charge to the patient if there is concern for fracture or other pathology in this region. An addendum will be dictated if the view is provided. 3. Tiny calcific/ossific focus inferior to the medial malleolus. 4. Recommend follow-up imaging in 10-14 days if fracture is suspected.
--- NOTE | ~2023-04-30 | XR_ITS ---
EXAMINATION: XR KNEE, RIGHT XR ANKLE, RIGHT CLINICAL INFORMATION: Pain. COMPARISON: Right ankle of 04/30/2016. Right foot of 05/23/2021. TECHNIQUE: 3 views of the right ankle. 4 views of the right knee. FINDINGS: RIGHT KNEE: The bones are diffusely demineralized. Chondrocalcinosis in the medial and lateral compartments. Mild narrowing of the medial and lateral compartments. Scattered soft tissue calcifications are likely vascular. No significant joint effusion. RIGHT ANKLE: Soft tissue fold overlies the posterior superior aspect of the calcaneus on the lateral view, limiting evaluation. Repeat views should be obtained at no charge to the patient if there is concern for fracture or other pathology in this region. An addendum will be dictated if the view is provided. The bones are diffusely demineralized. Small plantar calcaneal spur. Diffuse soft tissue swelling. Degenerative changes at the midfoot. Tiny calcific/ossific focus inferior to the medial malleolus. XR/XR knee RT 4V IMPRESSION: 1. Chondrocalcinosis in the medial and lateral compartments of the right knee. 2. Soft tissue fold overlies the posterior superior aspect of the calcaneus on the lateral view, limiting evaluation. Repeat views should be obtained at no charge to the patient if there is concern for fracture or other pathology in this region. An addendum will be dictated if the view is provided. 3. Tiny calcific/ossific focus inferior to the medial malleolus. 4. Recommend follow-up imaging in 10-14 days if fracture is suspected.
== END 2023-04-30 15:19 | disposition home or self-care (01) ==
LOC: HO.XRAY 15:18
PROVIDERS: PCP Internal Medicine; Visit Provider Internal Medicine
DX: M25.561 Pain in right knee (principal); M25.571 Pain in right ankle and joints of right foot
CPT/HCPCS: 73564; 73610

== ENCOUNTER 2023-06-13 10:52 | Outpatient (RCR) | payer MEDICARE, MEDICAID, SELFPAY | END 2023-06-26 13:32 | disposition home or self-care (01) | LOC: HO.PTCHIC 10:52 | PROVIDERS: PCP Internal Medicine; Visit Provider Podiatrist | DX: M72.2 Plantar fascial fibromatosis (principal) | CPT/HCPCS: 97110; 97162 ==

== ENCOUNTER 2023-12-04 10:25 | Outpatient (REF) | payer MEDICARE, MEDICAID, SELFPAY ==
--- NOTE | ~2023-12-04 | US_ITS ---
EXAMINATION: US EXTRACRANIAL CAROTID DUPLEX, BILATERAL CLINICAL INFORMATION: Occlusion and stenosis of bilateral carotid arteries COMPARISON: Carotid duplex February 18, 2023, and multiple prior exams TECHNIQUE: Real-time ultrasound and Doppler techniques (integrating B-mode 2-D vascular images, Doppler spectral analysis and color-flow Doppler imaging) were utilized to interrogate the extracranial carotid arteries, the vertebral arteries and proximal subclavian arteries bilaterally. The degree of stenosis is determined by criteria similar to NASCET. FINDINGS: Right Side: 1. There is mild atherosclerotic plaque seen in the bifurcation/proximal ICA region. 2. The common carotid artery PSV proximally is 119 cm/s and distally 81 cm/s. 3. The proximal internal carotid artery velocities are 101 cm/s systolic and 19 cm/s diastolic. 4. The proximal external carotid artery PSV is 114 cm/s. 5. The vertebral artery shows antegrade flow. 6. The subclavian artery waveforms are normal. Left Side: 1. There is mild atherosclerotic plaque seen in the bifurcation/proximal ICA region. 2. The common carotid artery PSV proximally is 86 cm/s and distally 74 cm/s. 3. The proximal internal carotid artery velocities are 237 cm/s systolic and 35 cm/s diastolic. 4. The proximal external carotid artery PSV is 273 cm/s. 5. The vertebral artery shows antegrade flow. 6. The subclavian artery waveforms are normal. US/US carotid duplex BI IMPRESSION: 1. RIGHT: Minimal, non-hemodynamically significant stenosis of the proximal right internal carotid artery corresponding to a 0-49% stenosis by velocity criteria. 2. LEFT: Moderate, hemodynamically significant stenosis of the proximal left internal carotid artery corresponding to a 50-79% stenosis by velocity criteria. 3. Elevated velocities in the left external carotid artery suggesting stenosis 4. There is no change in the category severity of disease when compared to the previous study dated November 19, 2022. Electronically signed by: Fortino Ballard MD 12/05/2023 01:31 PM EDT
[2023-12-04 13:39] LABS: MANUAL DIFF FLAG NO
[2023-12-04 13:57] LABS: Basophils Percent Auto 0.6 % (0-2); Eosinophils Absolute Auto 0.1 X10*3/uL (0.0-0.4); Eosinophils Percent Auto 1.8 % (0-4); Hematocrit 43.5 % (37.0-47.0); Imm Gran Abs Auto 0.04 X10*3/uL (0.00-0.03); Imm Gran Pct Auto 0.8 % (0.0-0.4); Lymphocytes Absolute Auto 2.1 X10*3/uL (1.2-4.9); Lymphocytes Percent Auto 43.6 % (20-40); Mean Corpuscular HGB Conc 32.2 g/dl (31.0-35.0); Mean Corpuscular Hemoglobin 30.7 pg (27.0-33.0); Mean Corpuscular Volume 95.4 fL (80.0-98.0); Mean Platelet Volume 11.3 fL (9.4-12.3); Monocytes Absolute Auto 0.4 X10*3/uL (0.1-1.2); Monocytes Percent Auto 7.1 % (2-11); Neutrophils Absolute Auto 2.3 x10*3/uL (2.0-8.3); Neutrophils Percent Auto 46.1 % (45-73); Platelet Count 230 X10*3/uL (160-400); Red Blood Count 4.56 X10*6/uL (4.20-5.50); Red Cell Distribution Width 15.7 % (11.0-16.0); White Blood Count 4.9 X10*3/uL (4.8-10.8)
[2023-12-04 14:33] LABS: Alanine Aminotransferase 31 U/L (0-31); Albumin Level 4.3 g/dL (3.5-5.0); Alkaline Phosphatase 71 U/L (39-117); Anion Gap 15 (12-20); Aspartate Amino Transferase 23 U/L (5-31); Bilirubin Total 1.1 mg/dL (0.0-1.0); Blood Urea Nitrogen 11 mg/dL (9-16); Calcium 9.7 mg/dL (8.4-10.2); Carbon Dioxide 26 mmol/L (22-29); Chloride 108 mmol/L (96-108); Cholesterol 205 mg/dL (<200); Estimated Glomerular Filt Rate > 60; Glucose Fasting 115 mg/dL (60-99); HDL Cholesterol 60 mg/dL (>40); LDL Cholesterol Calculated 119 mg/dL (<100); Sodium 145 mmol/L (135-145); Total Protein 7.5 g/dL (6.5-8.0); Triglycerides 130 mg/dL (<150); Vitamin D 25-OH Total 38.3 ng/mL (>30)
== END 2023-12-04 10:26 | disposition home or self-care (01) ==
LOC: HO.HMGCX 10:25
PROVIDERS: PCP Internal Medicine; Visit Provider Surgery Vascular Surgery
DX: I65.23 Occlusion and stenosis of bilateral carotid arteries (principal); E78.00 Pure hypercholesterolemia, unspecified; M81.0 Age-related osteoporosis without current pathological fracture
CPT/HCPCS: 36415; 80053; 80061; 82306; 85025; 93880

== ENCOUNTER 2023-12-24 12:57 | Outpatient (AMB) | payer MEDICARE, MEDICAID, SELFPAY ==
--- NOTE | 2023-12-24 13:00 | A.OFFVIS_ITS ---
Vital Signs 12/24/23 13:01 Height 5 ft Weight 143 lb BMI 27.9 BP 146/66 H Blood Pressure Location Lt brachial Intake Visit Reasons: 1yr follow up s/p carotid US 12/04/23 Intake Note: 1 year follow up carotid US 12/04/23. Pt states her only complaint is she now get cortisone shots in her left shoulder. Allergies ibuprofen [From ADVIL] Allergy (Severe, Verified 12/24/23 13:03) DUE TO CVA-BLEED tramadol [TRAMADOL] Allergy (Severe, Verified 12/24/23 13:03) UNKNOWN amoxicillin [AMOXICILLIN] Allergy (Mild, Verified 12/24/23 13:03) RASH Penicillins [PENICILLINS] Allergy (Mild, Verified 12/24/23 13:03) RASH oxycodone [Percocet] Allergy (Unknown, Verified 12/24/23 13:03) Difficulty Breathing From PERCOCET Allergy (Severe, Uncoded 12/24/23 13:03) DIFFICULTY BREATHING, INCREASED HEART RATE From ALEVE Adverse Reaction (Severe, Uncoded 12/24/23 13:03) DUE TO CVA-BLEED HPI HPI 1yr follow up s/p carotid US 12/04/23: Details: Very pleasant 78-year-old female presents for routine surveillance follow-up regarding her carotids. She has had no interval issues. She denies any lateralizing signs or symptoms including upper and lower extremity weakness loss of vision or garbled speech. She now presents for routine follow-up. Of note she is being maintained on an aspirin and statin. [facility] Medical History Parathyroid adenoma Cervical vertebral fusion Stroke Surgical History History of cataract surgery History of carpal tunnel release Hx of thyroidectomy H/O toe surgery History of CEA (carotid endarterectomy) H/O: hysterectomy Family History Mother Heart disease Diabetes Father Heart disease Daughter Breast cancer HTN (hypertension) Daughter HTN (hypertension) Hearing loss Sister Pancreatic cancer Sister Stroke Brother Prostate cancer Social History Alcohol intake: never Patient Tobacco Use Status: Never used Tobacco Review of Systems Const All systems reviewed & are unremarkable except as noted in HPI and below Reports no additional complaints ENT Reports Normal hearing present Card Denies chest pain, Denies chest pain at rest, Denies chest pain with activity and Denies pedal edema Resp Denies cough GI Denies abdominal pain Musc Denies abnormal gait, Denies muscle cramps and Denies radiating pain into limb Skin/Breast Denies skin ulcer and Denies wounds Neuro Reports Normal hearing present and Denies abnormal gait Psych Reports no additional complaints Physical Exam Vital Signs: Last Vital Signs BP 146/66 H 12/24/23 13:01 BMI result Body Mass Index 27.9 Const General: cooperative, healthy appearing and comfortable Orientation/consciousness: oriented to person, oriented to place and oriented to time HEENT Head: Yes normal to inspection Neck Neck: Yes normal visual inspection Carotids: no bruits Chest Chest palpation & inspection: normal inspection of the chest Resp Effort & Inspection: normal respiratory effort and able to speak in complete sentences Auscultation: clear to auscultation bilaterally, no crackles, no rales, no rhonchi and no wheezes Cardio Rate: regular rate Rhythm: regular rhythm Heart sounds: S1 normal heart sound present and S2 normal heart sound present Bruits: no carotid bruits Peripheral pulses: Peripheral pulses 2+ throughout GI Inspection: Yes normal to inspection Skin Wounds: no wounds Hair: normal Neuro General: oriented to person, oriented to place and oriented to time Cranial nerves: Yes CN's II-XII intact bilaterally and Yes Normal hearing present Cognition (Neuro): normal cognition Motor exam (neuro): 5/5 motor strength present throughout Extrem Other: venous exam: No significant superficial varicosities or spider telangiectasias, minimal edema General: No clubbing, No cyanosis and No edema Psych Appearance: grossly normal Mental Status: mental status grossly normal Speech and movement: Normal speech and movement present Results Reviewed Results Reviewed: Noninvasive carotid testing dated 12/03/2021 demonstrates right-sided 0-49 left side 50-79 with a peak systolic of 237. Assessment & Plan Assessment & Plan (1) Carotid stenosis: Comment: Right carotid endarterectomy 01/27/2018 Code(s): I65.29 - Occlusion and stenosis of unspecified carotid artery Category: Medical Qualifiers: Laterality: bilateral Qualified Code(s): I65.23 - Occlusion and stenosis of bilateral carotid arteries Plan: In short patient has asymptomatic carotid disease. We have reviewed signs and symptoms of a stroke. We also discussed risk factor modification inclusive a healthy diet low in cholesterol. The patient will follow up with us with surveillance ultrasound of the carotids 1 year. Should there be any changes or signs or symptoms of a stroke we will be happy to see them back sooner. Thank you for allowing us to participate in this patient's care. If there are any questions or concerns please do not hesitate to contact us. Orders: Orders US carotid duplex BI 1 Year I65.23 - Occlusion and stenosis of bilateral carotid arteries Coding Level of Care Code Est Pt Level 4 (35627) Complex EM visit Add On G2211 Diagnoses Bilateral carotid artery stenosis I65.23 Laterality: bilateral
[2023-12-24 13:01] VITALS: BP 146/66; BMI 27.9
== END 2023-12-24 13:21 | disposition home or self-care (01) ==
PROVIDERS: PCP Internal Medicine; Visit Provider Surgery Vascular Surgery
DX: I65.23 Occlusion and stenosis of bilateral carotid arteries (principal)
CPT/HCPCS: 99214; G2211

== ENCOUNTER → 2023-12-24 12:57 | Outpatient (BNVA) | payer MEDICARE, MEDICAID, SELFPAY | PROVIDERS: PCP Internal Medicine; Visit Provider Surgery Vascular Surgery | DX: I65.23 Occlusion and stenosis of bilateral carotid arteries (principal) | CPT/HCPCS: 99212 ==

== ENCOUNTER 2024-03-12 14:50 | Outpatient (REF) | payer MEDICARE, MEDICAID, SELFPAY ==
--- NOTE | ~2024-03-12 | US_ITS ---
EXAMINATION: US LOWER EXTREMITY VEINS LIMITED FOLLOW UP RIGHT HISTORY: Right leg edema, r/o DVT COMPARISON: There are no prior studies for comparison. TECHNIQUE: Duplex and color Doppler sonographic examination of the deep venous system of the right lower extremity was performed. FINDINGS: The common femoral, superficial femoral, and popliteal veins are patent demonstrating normal compressibility, spontaneous flow, and augmentation. There is a normal color and spectral Doppler waveform appearance of the visualized deep venous system above the knee. The posterior tibial vein is patent. The peroneal vein is not well visualized. US/US venous duplex LE RT IMPRESSION: No evidence of acute DVT in the right lower extremity. Electronically signed by: Jony Taylor MD 03/12/2024 03:42 PM [facility] [place]
--- OUTSIDE RECORDS SUMMARY | 2024-03-12 16:43 | XMS_ITS ---
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 Name Role Phone Jaquan Knott MD Primary Care Provider Unavaila nancy Black Marisabel Unavailable [phone] Allergies Allergen (clinical drug ingredient) Drug/Non Drug Allergy documented on EMR Reaction Allergy Type Onset Date Status ibuprofen Advil Unknown Drug Allergy Active acetaminophen / oxycodone Percocet shortness of breath Drug Allergy Active amoxicillin Amoxicillin Unknown Drug Allergy Act shannon codeine Codeine Unknown Drug Allergy Active morphine Morphine Unknown Drug Allergy Active REASON FOR VISIT Painful nail(s) aggrevated by shoes causing difficulty standing/walking, Ingrown nail(s), Swelling Medications Medication SIG (Take, Route, Frequency, Duration) Notes Start Date End Date Status Aspirin Not-Taking amLODIPine Besylate 2.5 MG as directed O rally Once a day Not-Taking Vitamin D3 Not-Takin g Atorvastatin Calcium 40 MG as directed O rally Once a day Not-Taking Ropinirole Hydrochloride Not-Taking Physical Therapy . . . 2-3x/week for 3- 4 weeks 05/01/2023 Not-Taking zzzCompression Stockings 20-30mm Hg . . . for . Not-Taking rOPINIRole HCl 0.5 MG 1 tablet 1 to 3 ho urs before bedtime Orally Once a day for 30 day(s) Active zzzCompression Stockings 20-30mm Hg . . . for . Not-Taking Vitamin D3 25 MCG (1000 UT) 1 tablet Orally Once a day for 30 day(s) Active Atorvastatin Calcium 40 MG 1 tablet Oral ly Once a day for 30 day(s) Active Aspirin Adult Low Dose 81 MG 1 tablet Orally Once a day for 30 day(s) Active amLODIPine Besylate 2.5 MG 1 tablet Oral ly Once a day for 30 day(s) Active Social History Tobacco Use: Social History Observation Description Date Details (start date - stop date) Never Smoker NA - NA Tobacco Use/Smoking Question Answer Notes Are you a: nonsmoker Additional Findings: Tobacco Non-User Current no n-smoker Tobacco use other than smoking: Question Answer Notes Are you an other tobacco user? No Vital Signs Height 5ft in 03/12/2024 Weight 142 lbs 03/12/2024 BMI 27.73 kg/m2 03/12/2024 Blood pressure systolic 140 mm Hg 03/12/19 25 Blood pressure diastolic 80 mm Hg 025 Procedures Procedure Date Ordered Date Performed Result Body Sit e 79234-EIRAPKU NAIL, 6 OR MORE 03/12/2024 N/A Encounters Encounter Location Date Provider Diagnosis [facility] [address] [place] [address] 03/12/2024 Marisabel Black Tinea unguium B35.1 ; Acute deep vein thrombosis (DVT) of calf muscle vein of right lower extremity I82.461 ; Pain in right toe(s) M79.674 ; Pain in left toe(s) M79.675 and Edema, lower extremity R60.0 Assessments Encounter Date Diagnosis (ICD Code) Assessment Notes Treatment Notes Treatment Clinical Notes Section Notes 03/12/2024 Tinea unguium (ICD-10 - B35.1) 03/12/2024 Acute deep vein thrombosis (DVT) of calf muscle vein of right lower extremity (ICD-10 - I82.461) 03/12/2024 Pain in right toe(s) (ICD-10 - M79.674) 03/12/2024 Pain in left toe(s) (ICD-10 - M79.675) 03/12/2024 Edema, lower extremity (ICD-10 - R60.0) Plan Of Treatment Pending Test Test Name Order Date Ultrasound : Lower Extremity, right 11/2024 52904-[id number] NAIL, 6 OR MORE 03/12/2024 Next Appt Details Follow Up: 3 Months, Reason: Procedure Notes * Category Sub-Category Detail Notes Debride Nail 6-10 Nail debridement Due to the cl inical pathology outlined in the exam findings, performance of this nail treatment is medically necessary as its management by an unskilled/untrained nonprofessional would put this patients foot and overall health at risk. Therefore, debridement to affected nail(s), as described in exam ( TA, T1, T2, T3, T4, T5, T6, T7, T8, T9, ), was performed exclusively by the physician of record to reduce/remove overall nail length, girth, thickness, subungual debris, and necrotic tissue, by manual and/or electrical means through the use of a nail nipper and/or dremel-type emery grinder, to a more viable healthy nail plate or bed tissue 6-10 nails in total. Silver nitrate was used for any petechial bleeding as necessary. Definitive antifungal treatment options, both pharmaceutical and surgical, have been reviewed and discussed with the patient. The patient solely prefers the use of intermittent/as needed professional debridement services for their nail condition and understands the need for additional periodic treatments to maintain effectiveness in symptomatic relief - 54540 Progress Notes * Dixie AGUILARB: [birth year] (78 yo F)Acc No.[id number]:03/12/2024 Progress Note Patient:?MARYSOL Jeanette Provider:?Marisabel Don DPM :1945???Age:78 Y???Sex:Female D ate:03/12/2024 Address:[address] [place] [address] Pcp:Jaquan Knott MD Subjective: * Chief Complaints: * ???Painful nail(s) aggrevate d by shoes causing difficulty standing/walkingIngrown nail(s)Swelling * HPI: ???Painful Nails:?Pt States Last PCP Visit:?Date:?01/15/2024 ???Swelling:?Location:?, Right foot/leg.?Duration:?several weeks.?Course:?worse.? * ROS:?General/Constitutional:?Nausea?denies.?Vomiting?denies.?Hunger Thirst?denies.?Loss appetite?denies.?Chills?denies.?Fatigue?denies.?Fever?denies.?Night Sweats?denies.?Unexplained weight loss?denies.?Unexplained weight gain?denies.?HEENTM:?Dentures?admits.?Dizziness?denies.?Glasses/contacts?admits.?Retinopathy?de nies.?Blurred/double vision?denies.?TMJ?denies.?Discharge/drainage?denies.?Implants?denies.?Sore throat?denies.?Dental implants?denies.?Hard of hearing ?denies.?Difficulty chewing/swallowing/speaking?denies.?Nose bleeds?denies.?Sore mouth?denies.?Respiratory:?On Oxygen?denies.?Pneumonia/pleurisy?denies.?Bronchitis?denies.?Emphysema?denies.?C oughing?denies.?Cough blood?denies.?Shortness of breath?denies.?Wheezing?denies.?Cardiovascular:?Pacemaker?denies.?MVP?denies.?WPW?denies.?CHF?denies.?Heart attack?denies.?Septal defect?denies.?Rapid beat?denies.?Chest pain ?denies.?Atrial Fib.?denies.?Murmur/Palpitations?denies.?Gastrointestinal:?Hemorrhoids?denies.?Stomach/Abdominal pain?denies.?Dark blood stool?denies.?Irritable bowel ?denies.?Constipation?denies.?Diarrhea?denies.?Hematology:?Swelling?admits.?Clots?denies.?Varicose Veins?denies.?Bruising?denies.?Bleeding problem?denies.?Genitourinary:?Blood urine?denies.?Frequent/Painfu/urination/bladder control?denies.?Kidney stones?denies.?Infection (UTI)?denies.?Nephropathy?denies.?sex trans dis (STD)?denies.?Prostate?denies.?Musculoskeletal:?Hammertoes?denies.?Bunions?denies.?Back Pain?denies.?Muscle Cramps/ Resting?denies.?Muscle cramps / walking?denies.?Generalized aches and pains??admits.?Weakness?denies.?Integ.:?Escalante?denies.?Scars?denies.?Corns/calluses?denies.?Ingrown nails?admits.?Painful nails?admits.?Open Sores?denies.?Rashes?denies.?Neurologic:?Difficulty sleeping?denies.?Brain disorder?denies.?Numbness?denies.?Balance trouble?denies.?Confusion?denies.?Fainting/blackouts?denies.?Tingling?denies.?Tr emors?denies.? * Medical History:? * Surgical History:?anterior c ervical discectomy/fusion 2016ovarian cyst diagnostic, laparoscropy 07/20/1983hysterectomy 1983right superior gland, parathyroidectomy adenoma 1984left foot bony exostosis 5th toe hemiphalangectomy 04/03/1996right carpal tunnel 12/08/1998left carpal tunnel 2x 05/29/1999, 08/28/1999 * Hospitalization/Major Diagno stic Procedure:?stroke - no ibuprofen, aleve 06/07/2010 * Family History:?Mother: dece ased, diagnosed with Unspecified heart disease.?Father: , diagnosed with Unspecified heart disease.?Children: prostate cancer, diagnosed with Other malignant neoplasm of unspecified site, Unspecified essential hypertension.?Siblings: diagnosed with Other malignant neoplasm of unspecified site, Unspecified nonpsychotic mental disorder following organic brain damage, Unspecified essential hypertension.? * Social History:?Tobacco Use:?Tobacco Use/Smoking?Are you a:?nonsmoker ?Additional Findings: Tobacco Non-User?Current non-smoker ?Tobacco use other than smoking?Are you an other tobacco user??No * Medications:?TakingamLODIPin e Besylate 2.5 MG Tablet 1 tablet Orally Once a day Aspirin Adult Low Dose 81 MG Tablet Delayed Release 1 tablet Orally Once a day Atorvastatin Calcium 40 MG Tablet 1 tablet Orally Once a day Vitamin D3 25 MCG (1000 UT) Tablet 1 tablet Orally Once a day rOPINIRole HCl 0.5 MG Tablet 1 tablet 1 to 3 hours before bedtime Orally Once a day Taking amLODIPine Besylate 2.5 MG Tablet 1 tablet Orally Once a day Taking Aspirin Adult Low Dose 81 MG Tablet Delayed Release 1 tablet Orally Once a day Taking Atorvastatin Calcium 40 MG Tablet 1 tablet Orally Once a day Taking Vitamin D3 25 MCG (1000 UT) Tablet 1 tablet Orally Once a day Taking rOPINIRole HCl 0.5 MG Tablet 1 tablet 1 to 3 hours before bedtime Orally Once a day Not-Taking/PRNzzzCompression Stockings 20-30mm Hg 1 pair closed toe- knee high . . . Physical Therapy . . . . 2-3x/week zzzCompression Stockings 20-30mm Hg 1 pair closed toe- knee high . . . Atorvastatin Calcium 40 MG Tablet as directed Orally Once a day Ropinirole Hydrochloride Vitamin D3 Aspirin amLODIPine Besylate 2.5 MG Tablet as directed Orally Once a day Medication List reviewed and reconciled with the patientNot-Taking/PRN zzzCompression Stockings 20-30mm Hg 1 pair closed toe- knee high . . . Not-Taking/PRN Physical Therapy . . . . 2-3x/week Not-Taking/PRN zzzCompression Stockings 20-30mm Hg 1 pair closed toe- knee high . . . Not- Taking/PRN Atorvastatin Calcium 40 MG Tablet as directed Orally Once a day Not-Taking/PRN Ropinirole Hydrochloride Not-Taking/PRN Vitamin D3 Not-Taking/PRN Aspirin Not-Taking/PRN amLODIPine Besylate 2.5 MG Tablet as directed Orally Once a day Medication List reviewed and reconciled with the patient * Allergies:?AmoxicillinAdvilM orphineCodeinePercocet: shortness of breathyes[Allergies Verified] Objective: * Vitals:?Ht: 5ft, Wt: 142, BM I: 27.73, Shoe size: 7-8, BP: 140/80 mm Hg, Ht-cm: 152.4 cm, Wt-k.41 kg. * Examination: ???General Examination: ?GENERAL APPEARANCE:?Reveals a pleasant, alert, well nourished, well- developed, well hydrated individual, who demonstrates proper attention to hygiene/body habitus, and is in no acute distress, Pt serves as own historian for office visit today.?ORIENTED:?person, place, and time.?Orthopedic: ?MUSCLE STRENGTH:?Generalized decrease in strength , Decreased with DF , Drop foot , Right.?GAIT ABNORMALITY:?antalgic.?FOOT MORPHOLOGY:?Decreased Ankle joint dorsiflexion ROM, knee extended , Decreased Ankle joint dorsiflexion ROM, knee flexed , Dropfoot noted NWB , RIGHT.?Nails: ?NAILS are:?Elongated, overgrown, dystrophic, lytic, greater than 3mm thick, discolored and friable with crumbly malodorous subungual debris, with pain on palpation ,, TA, T1, T2, T3, T4, T5, T6, T7, T8, T9.?Vascular: ?DP PULSES (B):?, 0/4, RIGHT, , 2/4, LEFT.?PT PULSES (B):?, 0/4, RIGHT, 1/4, LEFT.?CAPILLARY FILL TIME:?immediate, all digits, B/L.?TROPHIC CONDITION-TEXTURE/ELASTICITY/TURGOR/HAIR GROWTH (B):?normal, B/L.?TEMPERTURE GRADIENT (C):?normal, warm to cool, proximal to distal, left , right warm to touch.?PIGMENTATION:?normal, B/L.?EDEMA (C):?3/4, non-pitting, Right, 1/4, Left.?KIRSTY'S SIGN:?, present, Right.?PALPABLE CORDS:?absent, B/L.?Dermatologic: ?SKIN FINDINGS:?Skin exam reveals normal color, texture, elasticity, and turgor. There are no masses, nor excrescences. The interspaces are clear, B/L.? Assessment: * Assessment: 1.?Tinea unguium - B35.1???2 .?Acute deep vein thrombosis (DVT) of calf muscle vein of right lower extremity - I82.461 (Primary)???Specify :Dx New problem, Prognosis Uncertain (4)???3.?Pain in right toe(s) - M79.674???4.?Pain in left toe(s) - M79.675???5.?Edema, lower extremity - R60.0???Specify :Acute problem, Uncomplicated (3), Rx Management (4)??? Plan: * Treatment: 2.?Tinea unguium?Procedure: 59092-[id number] NAIL, 6 OR MORE * Procedures:?Debride Nail 6-10:?Nail debridement?Due to the clinical pathology outlined in the exam findings, performance of this nail treatment is medically necessary as its management by an unskilled/untrained nonprofessional would put this patients foot and overall health at risk. Therefore, debridement to affected nail(s), as described in exam ( TA, T1, T2, T3, T4, T5, T6, T7, T8, T9, ), was performed exclusively by the physician of record to reduce/remove overall nail length, girth, thickness, subungual debris, and necrotic tissue, by manual and/or electrical means through the use of a nail nipper and/or dremel-type emery grinder, to a more viable healthy nail plate or bed tissue 6- 10 nails in total. Silver nitrate was used for any petechial bleeding as necessary. Definitive antifungal treatment options, both pharmaceutical and surgical, have been reviewed and discussed with the patient. The patient solely prefers the use of intermittent/as needed professional debridement services for their nail condition and understands the need for additional periodic treatments to maintain effectiveness in symptomatic relief - 96244.? * Procedure Codes:?98295 DEBRI DE NAIL, 6 OR MORE, Modifiers: XS * Preventive Medicine:? ??Counseling:?Discussion:?-14: Office or other outpatient visit for the evaluation and management of an established patient, which required a medically appropriate history and/or examination and MODERATE level of DECISION MAKING for: 1 OR MORE CHRONIC PROBLEM(S) THATS WORSENING, 2 STABLE CHRONIC PROBLEMS, A NEWLY DIAGNOSED PROBLEM WITH UNCERTAIN PROGNOSIS, AN ACUTE COMPLICATED INJURY WITH MULTIPLE TREATMENT OPTIONS, OR AN ACUTE PROBLEM WITH ACCOMPANYING SYSTEMIC SYMPTOMS, THAT POSE(S) A MODERATE RISK OF MORBIDITY. THIS CONDITION MAY ALSO INCLUDE RX DRUG MANAGEMENT, OR A DECISON FOR MINOR SURGERY. The visit on the day of the encounter encompassed interpreting the data and educating the patient as to the nature of their condition, treatment options available according to their individual PMH, meds, allergies, and overall health/living conditions, as well as any potential risks or complications that may occur from a failure to adhere to, and participate in, the recommended course of therapy. The discussion included a complete verbal, and/or written explanation of the examination results, any x-rays taken, the proposed diagnosis, and outline of the treatment plan. A schedule for future care needs was also explained. The patient verbalized an understanding of the instructions at this time and agreed to be an active participant in their treatment. If the patient should think of any questions or concerns after the visit, I have encouraged the patient to call the office.?Consult:?The patient was counseled on the diagnosis, treatment options, and the need for a, Ultrasound to r/o to rule out a blood clot. Pt was scheduled for this afternnon at [facility] for 2:30. Explained the importance of having the ultrasound. Pt daughter states they will bring her right over.? * Follow Up:?3 Months * Images: * Sign off status: Completed true * Provider:?Marisabel Don DPM Date:?2024 Generated for Yinka bruce/George/Franky on:?03/12/2024 04:43 PM EST History and Physical Notes * HPI (History of Present Illness) Category Sub-Category Detail Notes Category Not es Painful Nails Pt States Last PCP Visit: Date:: 01/15/2024 Swelling Location: , Right foot/leg Duration: several weeks Course: worse Examination Category Sub-Category Detail Notes Category Not es Ingrown Nail INSPECTION: Dermatologic SKIN FINDINGS: Skin exam reveal s normal color, texture, elasticity, and turgor. There are no masses, nor excrescences. The interspaces are clear, B/L Orthopedic GAIT ABNORMALITY: antalgic FOOT MORPHOLOGY: Decreased Ankle join t dorsiflexion ROM, knee extended , Decreased Ankle joint dorsiflexion ROM, knee flexed , Dropfoot noted NWB , RIGHT ANKLE PAIN LOCATED: TENDONITIS: MUSCLE STRENGTH: Generalized decrease in strength , Decreased with DF , Drop foot , Right General Examination GENERAL APPEARANCE: Reveals a pleasant, alert, well nourished, well-developed, well hydrated individual, who demonstrates proper attention to hygiene/body habitus, and is in no acute distress, Pt serves as own historian for office visit today ORIENTED: person, place, and t katherin Vascular DP PULSES (B): , 0/4, RIGHT, , 2/4, LEFT PT PULSES (B): , 0/4, RIGHT, 1/4, L EFT CAPILLARY FILL TIME: immediate, all digi ts, B/L TEMPERTURE GRADIENT (C): normal, warm to cool, proximal to distal, left , right warm to touch TROPHIC CONDITION-TEXTURE/ELASTICITY/TURGOR/HAIR GROWTH (B): normal, B/L EDEMA (C): 3/4, non-pitting, Ri ght, 1/4, Left KIRSTY'S SIGN: , present, Right PALPABLE CORDS: absent, B/L PIGMENTATION: normal, B/L Nails NAILS are: Elongated, overg rown, dystrophic, lytic, greater than 3mm thick, discolored and friable with crumbly malodorous subungual debris, with pain on palpation ,, TA, T1, T2, T3, T4, T5, T6, T7, T8, T9
--- OUTSIDE RECORDS SUMMARY | 2024-03-12 16:43 | XMS_ITS ---
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 Generated for Mattiei teo/George/eTransmitting on:?03/12/2024 04:43 PM EST
--- OUTSIDE RECORDS SUMMARY | 2024-03-12 16:44 | XMS_ITS ---
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 Role Phone Jaquan Knott MD Primary Care Provider Unavaila nancy Don Marisabel Unavailable [phone] Allergies Allergen (clinical drug ingredient) Drug/Non Drug Allergy documented on EMR Reaction Allergy Type Onset Date Status ibuprofen Advil Unknown Drug Allergy Active acetaminophen / oxycodone Percocet shortness of breath Drug Allergy Active amoxicillin Amoxicillin Unknown Drug Allergy Act shannon codeine Codeine Unknown Drug Allergy Active morphine Morphine Unknown Drug Allergy Active REASON FOR VISIT Painful nail(s) aggrevated by shoes causing difficulty standing/walking, Ankle pain, Ingrown nail(s) Medications Medication SIG (Take, Route, Frequency, Duration) Notes Start Date End Date Status Ropinirole Hydrochloride Not-Taking Vitamin D3 Not-Takin g amLODIPine Besylate 2.5 MG 1 tablet Oral ly Once a day for 30 day(s) Active Aspirin Not-Taking amLODIPine Besylate 2.5 MG as directed O rally Once a day Not-Taking zzzCompression Stockings 20-30mm Hg . . . for . Not-Taking Physical Therapy . . . 2-3x/week for 3- 4 weeks 05/01/2023 Not-Taking zzzCompression Stockings 20-30mm Hg . . . for . Not-Taking Atorvastatin Calcium 40 MG as directed O rally Once a day Not-Taking rOPINIRole HCl 0.5 MG 1 tablet 1 to 3 ho urs before bedtime Orally Once a day for 30 day(s) Active Atorvastatin Calcium 40 MG 1 tablet Oral ly Once a day for 30 day(s) Active Vitamin D3 25 MCG (1000 UT) 1 [...] user? No Vital Signs Height 5ft in 11/21/2023 Weight 140 lbs 11/21/2023 BMI 27.34 kg/m2 11/21/2023 Blood pressure systolic 140 mm Hg 11/21/19 24 Blood pressure diastolic 80 mm Hg 024 Procedures Procedure Date Ordered Date Performed Result Body Sit e 69158-IIQAIWH NAIL, 6 OR MORE 11/21/2023 N/A 37282-Nquzqtat Plate 11/21/2023 N/A 69668-Butpghtl Plate Each Additional 11/21/2023 N/A Encounters Encounter Location Date Provider Diagnosis [facility] [address] [address] 11/21/2023 Marisabel Black Tinea unguium B35.1 ; Pain in right toe(s) M79.674 ; Pain in left toe(s) M79.675 ; Acute right ankle pain M25.571 ; Stress fracture of right foot with routine healing, subsequent encounter M84.374D ; Repetitive stress injury X50.3XXA and Ingrown nail L60.0 Assessments Encounter Date Diagnosis (ICD Code) Assessment Notes Treatment Notes Treatment Clinical Notes Section Notes 11/21/2023 Tinea unguium (ICD-10 - B35.1) 11/21/2023 Pain in right toe(s) (ICD-10 - M79.674) 11/21/2023 Pain in left toe(s) (ICD-10 - M79.675) 11/21/2023 Acute right ankle pain (ICD-10 - M25.571) 11/21/2023 Stress fracture of right foot with routine healing, subsequent encounter (ICD-10 - M84.374D) 11/21/2023 Repetitive stress injury (ICD-10 - X50.3XXA) 11/21/2023 Ingrown nail (ICD-10 - L60.0) Plan Of Treatment Pending Test Test Name Order Date 76604-WDDHESA NAIL, 6 OR MORE 11/21/2023 91623-Piopcbgl Plate 11/21/2023 01315-Zjcwjhwy Plate Each Additional Next Appt Details Follow Up: 2 Weeks,prn, Reas on: Procedure Notes * Category Sub-Category Detail Notes Nail Avulsion Procedure A fine sterile e levator was placed between the eponychium, nail fold, and nail plate to separate the the structures. A sterile nail splitter, and/or sterile 316 blade, was then used to longitudinally section the nail along its entire length through the eponychium to the area under the nail fold. The offending portion of each nail was from the nail bed with a rolling action and then removed with a hemostat. No underlying bone was identified. There was minimal bleeding as hemostasis was achieved through use of either a digital tournaquet or the aforementioned local with epinephrine. A bacitracin sterile dressing was applied. Local wound aftercare instructions were discussed and dispensed. The patient was informed of both conservative and future surgical procedures to prevent recurrence (57982/32) , Pt DEFERS matricectomy Anesthesia was accomplished TOP ICALLY with Lidocaine Hydrochloride Jelly 2 percent, Location Bilateral nail borde r, TA, T5, Debride Nail 6-10 Nail debridement Nail debridem ent performed extensively to reduce/remove overall nail length, girth, thickness, subungual debris, and necrotic tissue, by manual and electrical means through the use of a nail nipper and/or dremel, to more viable healthy nail plate or bed tissue 1-5. Silver nitrate used for any petechial bleeding as necessary. Patient chooses, no pharmaceutical tx (14844) Progress Notes * Elvia AGUILARaDOB: [birth year] (78 yo F)Acc No.[id number]:11/21/2023 Progress Note Patient:?Jeanette Aguilar Provider:Brady Don DPM :1945???Age:78 Y???Sex:Female D ate:11/21/2023 Address:[address] [place] [address] Pcp:Jaquan Knott MD Subjective: * Chief Complaints: * ???Painful nail(s) aggrevate d by shoes causing difficulty standing/walkingAnkle painIngrown nail(s) * HPI: ???Painful Nails:?Pt States Last PCP Visit:?Date:?09/12/2023 ???Ankle Pain:?Nature:?, sharp , shooting , swelling.?Location:?Outside aspect of the Right ankle.?Duration: ?few months.?Onset/Cause:?, gradual, denies trauma.?Course:?, improved 80 percent.?Aggravated by:?any pressure, standing, walking.?Treatments:?rest/alter normal daily activity, ice , meds ( tyelnol ), MRI, pt deferred walking boot, states the compression with the ramiro bandage helps.? * ROS:?General/Constitutional:?Nausea?denies.?Vomiting?denies.?Hunger Thirst?denies.?Loss appetite?denies.?Chills?denies.?Fatigue?denies.?Fever?denies.?Night Sweats?denies.?Unexplained weight loss?denies.?Unexplained [...] ervical discectomy/fusion 2016ovarian cyst diagnostic, laparoscropy 07/20/1983hysterectomy 1984right superior gland, parathyroidectomy adenoma 1984left foot bony exostosis 5th toe hemiphalangectomy 04/03/1996right carpal tunnel 12/08/1998left carpal tunnel 2x 05/29/1999, 08/28/1999 * Hospitalization/Major Diagno stic Procedure:?stroke - no ibuprofen, aleve 06/07/2010 * Family History:?Mother: dece ased, diagnosed with Unspecified heart disease.?Father: , diagnosed with Unspecified heart disease.?Children: prostate cancer, diagnosed with Unspecified essential hypertension, Other malignant neoplasm of unspecified site.?Siblings: diagnosed with Unspecified essential hypertension, Other malignant neoplasm of unspecified site, Unspecified nonpsychotic mental disorder following organic brain damage.? * Social History:?Tobacco Use:?Tobacco Use/Smoking?Are you a:?nonsmoker ?Additional Findings: Tobacco Non-User?Current non-smoker ?Tobacco use other than smoking?Are you an other tobacco user??No ???Miscellaneous:?Caffeine: yes, Soda 1-2 a week. ?Children: yes, 5. ?no Exercise. ?Marital status: . ?Occupation: Retired. * Medications:?TakingamLODIPin e Besylate 2.5 MG Tablet 1 tablet Orally Once a dayAspirin Adult Low Dose 81 MG Tablet Delayed Release 1 tablet Orally Once a dayAtorvastatin Calcium 40 MG Tablet 1 tablet Orally Once a dayVitamin D3 25 MCG (1000 UT) Tablet 1 tablet Orally Once a dayrOPINIRole HCl 0.5 MG Tablet 1 tablet 1 to 3 hours before bedtime Orally Once a dayTaking amLODIPine Besylate 2.5 MG Tablet 1 tablet Orally Once a dayTaking Aspirin Adult Low Dose 81 MG Tablet Delayed Release 1 tablet Orally Once a dayTaking Atorvastatin Calcium 40 MG Tablet 1 tablet Orally Once a dayTaking Vitamin D3 25 MCG (1000 UT) Tablet 1 tablet Orally Once a dayTaking rOPINIRole HCl 0.5 MG Tablet 1 tablet 1 to 3 hours before bedtime Orally Once a dayNot-Taking/PRNzzzCompression Stockings 20-30mm Hg 1 pair closed toe- knee high . . .Physical Therapy . . . . 2-3x/weekzzzCompression Stockings 20-30mm Hg 1 pair closed toe- knee high . . .Atorvastatin Calcium 40 MG Tablet as directed Orally Once a dayRopinirole Hydrochloride Vitamin D3 Aspirin amLODIPine Besylate 2.5 MG Tablet as directed Orally Once a dayMedication List reviewed and reconciled with the patientNot-Taking/PRN zzzCompression Stockings 20-30mm Hg 1 pair closed toe- knee high . . .Not-Taking/PRN Physical Therapy . . . . 2-3x/weekNot-Taking/PRN zzzCompression Stockings 20-30mm Hg 1 pair closed toe- knee high . . .Not- Taking/PRN Atorvastatin Calcium 40 MG Tablet as directed Orally Once a dayNot-Taking/PRN Ropinirole Hydrochloride Not-Taking/PRN Vitamin D3 Not-Taking/PRN Aspirin Not-Taking/PRN amLODIPine Besylate 2.5 MG Tablet as directed Orally Once a dayMedication List reviewed and reconciled with the patient * Allergies:?AmoxicillinAdvilM orphineCodeinePercocet: shortness of breathyes[Allergies Verified] Objective: * Vitals:?Ht: 5ft, Wt: 140, BM I: 27.34, Shoe size: 7-8, BP: 140/80 mm Hg, Ht-cm: 152.4 cm, Wt-k.5 kg. * Examination: ???Nails: ?NAILS are:?Elongated, overgrown, dystrophic, lytic, greater than 3mm thick, discolored and friable with crumbly malodorous subungual debris, with pain on palpation , 2-5 B/L.?Orthopedic: ?MUSCLE STRENGTH:?Generalized decrease in strength , Decreased with DF , Drop foot , Right.?GAIT ABNORMALITY:?antalgic.?FOOT MORPHOLOGY:?Decreased Ankle joint dorsiflexion ROM, knee extended , Decreased Ankle joint dorsiflexion ROM, knee flexed , Dropfoot noted NWB , RIGHT.?ANKLE PAIN LOCATED:? RIGHT, ankle, (+) swelling, (-) ecchymosis, (-) lateral instability, no pain with ankle joint ROM, LESS?Pain on palpation to, medial talus and tibia area at 80 percent ,calcaneus no POP ankle ligaments?.?Ingrown Nail: ?INSPECTION:?Reveals nail incurvation, pain on palpation, groove hypertrophy , groove ischemia , Bilateral nail borders , TA , T5.? Assessment: * Assessment: 1.?Tinea unguium - B35.1?2.? Pain in right toe(s) - M79.674?3.?Pain in left toe(s) - M79.675?4.?Acute right ankle pain - M25.571?5.?Stress fracture of right foot with routine healing, subsequent encounter - M84.374D (Primary)?6.?Repetitive stress injury - X50.3XXA?7.?Ingrown nail - L60.0? Plan: * Treatment: 2.?Ingrown nail?Procedure: 33893-Suctwenq Plate ?Procedure: 00133-Sxjcnzpc Plate Each Additional * Procedures:?Debride Nail 6-10:?Nail debridement?Nail debridement performed extensively to reduce/remove overall nail length, girth, thickness, subungual debris, and necrotic tissue, by manual and electrical means through the use of a nail nipper and/or dremel, to more viable healthy nail plate or bed tissue 1-5. Silver nitrate used for any petechial bleeding as necessary. Patient chooses, no pharmaceutical tx (45966).?Nail Avulsion:?Location?Bilateral nail border, TA, T5, ?.?Anesthesia?was accomplished TOPICALLY with Lidocaine Hydrochloride Jelly 2 percent, ?.?Procedure?A fine sterile elevator was placed between the eponychium, nail fold, and nail plate to separate the the structures. A sterile nail splitter, and/or sterile 316 blade, was then used to longitudinally section the nail along its entire length through the eponychium to the area under the nail fold. The offending portion of each nail was from the nail bed with a rolling action and then removed with a hemostat. No underlying bone was identified. There was minimal bleeding as hemostasis was achieved through use of either a digital tournaquet or the aforementioned local with epinephrine. A bacitracin sterile dressing was applied. Local wound aftercare instructions were discussed and dispensed. The patient was informed of both conservative and future surgical procedures to prevent recurrence (92144/32) , Pt DEFERS matricectomy.? * Procedure Codes:?89583 DEBRI DE NAIL, 6 OR MORE, Modifiers: XS 30620 Avulsion Plate, [place]: [place] [address] Avulsion Plate Each Additional, Modifiers: T5 * Preventive Medicine:? ??Counseling:?Discussion:?-12: Office or other outpatient visit for the evaluation and management of an established patient, which required a medically appropriate history and/or examination and STRAIGHTFORWARD level of MEDICAL DECISION MAKING, 1 SELF-LIMITED OR MINOR PROBLEM, MINIMAL- NO AMOUNT/COMPLEXITY OF DATA TO BE REVIEWED/ANALYZED, AND MINIMAL RISK OF COMPLICATION/MORBIDITY. The visit on the day of the [...] have encouraged the patient to call the office, Patients podiatric issue has improved, they should call the office with any future issues or concerns.? * Follow Up:?2 Weeks,prn * Images: * Sign off status: Completed true * Provider:Brady Don DPM Date:?2023 Generated for Printi ng/Fasupriyag/eTransmitting on:?03/12/2024 04:43 PM EST History and Physical Notes * HPI (History of Present Illness) Category Sub-Category Detail Notes Category Not es Ankle Pain Duration: few months Nature: , sharp , shooting , swelling Treatments: rest/alter normal da vale activity, ice , meds ( tyelnol ), MRI, pt deferred walking boot, states the compression with the ramiro bandage helps Course: , improved 80 percen t Location: Outside aspect of th e Right ankle Onset/Cause: , gradual, denies tr auma Aggravated by: any pressure, standi ng, walking Painful Nails Pt States Last PCP Visit: Date:: 09/12/2023 Examination Category Sub-Category Detail Notes Category Not es Ingrown Nail INSPECTION: Reveals nail inc urvation, pain on palpation, groove hypertrophy , groove ischemia , Bilateral nail borders , TA , T5 Orthopedic GAIT ABNORMALITY: antalgic FOOT MORPHOLOGY: Decreased Ankle join t dorsiflexion ROM, knee extended , Decreased Ankle joint dorsiflexion ROM, knee flexed , Dropfoot noted NWB , RIGHT ANKLE PAIN LOCATED: RIGHT, ankle, (+) sw elling, (-) ecchymosis, (-) lateral instability, no pain with ankle joint ROM, LESS Pain on palpation to, medial talus and tibia area at 80 percent ,calcaneus no POP ankle ligaments TENDONITIS: MUSCLE STRENGTH: Generalized decrease in strength , Decreased with DF , Drop foot , Right Nails NAILS are: Elongated, overg rown, dystrophic, lytic, greater than 3mm thick, discolored and friable with crumbly malodorous subungual debris, with pain on palpation , 2-5 B/L
--- OUTSIDE RECORDS SUMMARY | 2024-03-12 16:44 | XMS_ITS | Patient Health Record ---
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 Role Phone Jaquan Knott MD Primary Care Provider Unavaila nancy Don Marisabel Unavailable [phone] Aimee Rodríguez Unavailable [phone] Allergies Allergen (clinical drug ingredient) Drug/Non Drug Allergy documented on EMR Reaction Allergy Type Onset Date Status ibuprofen Advil Unknown Drug Allergy Active acetaminophen / oxycodone Percocet shortness of breath Drug Allergy Active amoxicillin Amoxicillin Unknown Drug Allergy Act shannon codeine Codeine Unknown Drug Allergy Active morphine Morphine Unknown Drug Allergy Active Results Component Value Reference Range Notes X ray : Ankle, right 3V Reviewed date:06/24/2023 04:00:42 PM Interpretation:See Examination above Performing Lab: Notes/Report: See Examination above MRI : Ankle, right Reviewed date:07/04/2023 10:32:44 PM Interpretation:see report Performing Lab: Notes/Report: see report Reason For Referral No Information Medications Medication SIG (Take, Route, Frequency, Duration) Notes Start Date End Date Status Vitamin D3 Not-Takin g amLODIPine Besylate 2.5 MG 1 tablet Oral ly Once a day for 30 day(s) Active Atorvastatin Calcium 40 MG as directed O [...] for . Not-Taking Atorvastatin Calcium 40 MG 1 tablet Oral ly Once a day for 30 day(s) Active Vitamin D3 25 MCG (1000 UT) 1 tablet Orally Once a day for 30 day(s) Active Aspirin Not-Taking Aspirin Adult Low Dose 81 MG 1 tablet Orally Once a day for 30 day(s) Active amLODIPine Besylate 2.5 MG as directed O rally Once a day Not-Taking Social History Tobacco Use: Social History Observation Description Date Details (start date - stop date) Never Smoker NA - NA Tobacco Use/Smoking Question Answer Notes Are you a: nonsmoker Additional Findings: Tobacco Non-User Current no n-smoker Alcohol Screen Question Answer Notes Did you have a drink containing alcohol in the p ast year? No Points 0 Interpretation Negative Tobacco use other than smoking: Question Answer Notes Are you an other tobacco user? 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 Problem 532507705 Cerebrovascular accident (CVA), unspecified mechanism (I63.9) Active confirmed Vital Signs Blood pressure diastolic 80 mm Hg 03/12/2024 Height 5ft in 03/12/2024 Blood pressure systolic 140 mm Hg 03/12/2024 Weight 142 lbs 03/12/2024 BMI 27.73 kg/m2 03/12/2024 Procedures Procedure Date Ordered Date Performed Result Body Sit e 29396-KGWSQWI NAIL, 6 OR MORE 08/01/2023 N/A 85746-VCFJIQM NAIL, 6 OR MORE 11/21/2023 N/A 01911-Rzdrhhef Plate 11/21/2023 N/A 58158-Rmiekiey Plate Each Additional 11/21/2023 N/A 59416-BJJMTPJ NAIL, 6 OR MORE 03/12/2024 N/A Encounters Encounter Location Date Provider Diagnosis [address] [address] 05/01/2023 Aimee Rodríguez Tinea unguium B35.1 ; Plantar fasciitis of right foot M72.2 ; Pain in right toe(s) M79.674 ; Pain in left toe(s) M79.675 ; Pain in right foot M79.671 ; Gastrocnemius equinus, right M62.461 and Cerebrovascular accident (CVA), unspecified mechanism I63.[address] [address] 06/24/2023 Marisabel Black Acute right ankle pain M25.571 ; Closed nondisplaced fracture of neck of talus, unspecified laterality, initial encounter S92.116A and Stress fracture of right foot, initial encounter M84.374A [address] [address] 07/04/2023 Marisabel Black Acute right ankle pain M25.571 ; Stress fracture of right foot with routine healing, subsequent encounter M84.374D and Repetitive stress injury X50.3XXA [address] [address] 08/01/2023 Marisabel Black Tinea unguium B35.1 ; Pain in right toe(s) M79.674 ; Pain in left toe(s) M79.675 ; Acute right ankle pain M25.571 ; Stress fracture of right foot with routine healing, subsequent encounter M84.374D and Repetitive stress injury X50.3XXA [address] [address] 11/21/2023 Marisabel Black Tinea unguium B35.1 ; Pain in right toe(s) M79.674 ; Pain in left toe(s) M79.675 ; Acute right ankle pain M25.571 ; Stress fracture of right foot with routine healing, subsequent encounter M84.374D ; Repetitive stress injury X50.3XXA and Ingrown nail L60.0 [facility] [address] [place] [address] 03/12/2024 Marisabel Don Tinea unguium B35.1 ; Acute deep vein thrombosis (DVT) of calf muscle vein of right lower extremity I82.461 ; Pain in right toe(s) M79.674 ; Pain in left toe(s) M79.675 and Edema, lower extremity R60.[address] [facility] [address] 04/01/2023 Marisabelabad Don [facility] [address] [address] 04/05/2023 Marisabelabad Don [facility] [address] 06/21/2023 Marisabel Don [facility] [address] 06/24/2023 Marisabelabad Don [facility] [address] 03/12/2024 Marisabel Don Assessments Encounter Date Diagnosis (ICD Code) Assessment Notes Treatment Notes Treatment Clinical Notes Section Notes 05/01/2023 Tinea unguium (ICD-10 - B35.1) 05/01/2023 Plantar fasciitis of right foot (ICD-10 - M72.2) Patient Educated with: HEEL CORD STRETCHES.pdf (HEEL CORD STRETCHES.pdf ) Patient Educated with: RICE THERAPY.pdf (RICE THERAPY.pdf) 06/24/2023 Acute right ankle pain (ICD-10 - M25.571) 06/24/2023 Closed nondisplaced fracture of neck of talus, unspecified laterality, initial encounter (ICD-10 - S92.116A) 07/04/2023 Acute right ankle pain (ICD-10 - M25.571) see report 07/04/2023 Stress fracture of right foot with routine healing, subsequent encounter (ICD-10 - M84.374D) 08/01/2023 Tinea unguium (ICD-10 - B35.1) 11/21/2023 Tinea unguium (ICD-10 - B35.1) 03/12/2024 Tinea unguium (ICD-10 - B35.1) 03/12/2024 Acute deep vein thrombosis (DVT) of calf muscle vein of right lower extremity (ICD-10 - I82.461) 03/12/2024 Pain in right toe(s) (ICD-10 - M79.674) 11/21/2023 Pain in right toe(s) (ICD-10 - M79.674) 07/04/2023 Repetitive stress injury (ICD-10 - X50.3XXA) 08/01/2023 Pain in right toe(s) (ICD-10 - M79.674) 06/24/2023 Stress fracture of right foot, initial encounter (ICD-10 - M84.374A) 05/01/2023 Pain in right toe(s) (ICD-10 - M79.674) 05/01/2023 Pain in left toe(s) (ICD-10 - M79.675) 11/21/2023 Pain in left toe(s) (ICD-10 - M79.675) 08/01/2023 Pain in left toe(s) (ICD-10 - M79.675) 03/12/2024 Pain in left toe(s) (ICD-10 - M79.675) 03/12/2024 Edema, lower extremity (ICD-10 - R60.0) 11/21/2023 Acute right ankle pain (ICD-10 - M25.571) 08/01/2023 Acute right ankle pain (ICD-10 - M25.571) 05/01/2023 Pain in right foot (ICD-10 - M79.671) 05/01/2023 Gastrocnemius equinus, right (ICD-10 - M62.461) 08/01/2023 Stress fracture of right foot with routine healing, subsequent encounter (ICD-10 - M84.374D) 11/21/2023 Stress fracture of right foot with routine healing, subsequent encounter (ICD-10 - M84.374D) 11/21/2023 Repetitive stress injury (ICD-10 - X50.3XXA) 08/01/2023 Repetitive stress injury (ICD-10 - X50.3XXA) 05/01/2023 Cerebrovascular accident (CVA), unspecified mechanism (ICD-10 - I63.9) 11/21/2023 Ingrown nail (ICD-10 - L60.0) Plan Of Treatment Pending Test Test Name Order Date MRI : Ankle, right 06/24/2023 Ultrasound : Lower Extremity, right 11/2024 14076-OIDAEYV NAIL, 6 OR MORE 11/21/2023 43147-PEQGUIY NAIL, 6 OR MORE 03/12/2024 84747-CSBAPWT NAIL, 6 OR MORE 08/01/2023 01563-DCOMQPO NAIL, 1-5 12/24/2022 05978-OLTZNNF NAIL, -5 12/21/2021 32907-RSWFSBX NAIL, -5 04/02/2022 49022-VPDBMSO NAIL, -06/25/2022 32708-VFGABPS NAIL, -09/24/2022 32507-RALIMYX NAIL, -5 09/12/2020 27387-IUJRVKJ NAIL, -5 12/22/2020 41728-PCWUCVW NAIL, -5 04/03/2021 66005-XEPHZPW NAIL, -5 06/12/2021 83305-XOBJYEB NAIL, -09/14/2021 14693-Otmurvrj Plate 12/21/2021 49263-Zbuegsos Plate 06/12/2021 61343-Jcetjeun Plate 04/03/2021 20410-Ktvhuzos Plate 12/24/2022 28801-Igqovetb Plate 06/25/2022 89918-Ubjyobvt Plate 09/12/2020 57122-Ntiyhiyo Plate 11/21/2023 47457-Phhpoavm Plate Each Additional 67165 I&D ABSCESS- SIMPLE,SINGLE 022 Insurance Providers Payer Name Payer Address Payer Phone Subscriber Number Group Number Insured Name Patient Relationship to Insured Coverage Start Date Coverage End Date [employer] [address] [place] [address] [id number] Jeanette Harris Self - patient is the insured Medical (General) History Medical History History ICD Code Arthritis Cataracts High blood pressure Stroke Measles Chicken pox COVID-19 osteoarthritis- cortisone injections- le ft arm Surgical History Surgery Date(Month/Year) anterior cervical discectomy/fusion 2015 ovarian cyst diagnostic, laparoscropy hysterectomy 1983 right superior gland, parathyroidectomy adenoma 1983 left foot bony exostosis 5th toe hemipha langectomy 04/03/1996 right carpal tunnel 12/08/1998 left carpal tunnel 2x 05/29/1999, 08/28/19 00 Hospitalization History Reason Date(Month/Year) stroke - no ibuprofen, aleve 06/07/2010
== END 2024-03-12 14:51 | disposition home or self-care (01) ==
LOC: HO.US 14:50
PROVIDERS: PCP Internal Medicine; Visit Provider Podiatrist
DX: R60.0 Localized edema (principal)
CPT/HCPCS: 93971

== ENCOUNTER → 2024-03-12 15:29 | Outpatient (BNV) | payer MEDICARE, MEDICAID, SELFPAY | PROVIDERS: PCP Internal Medicine; Visit Provider Radiology Diagnostic Radiology | DX: R60.0 Localized edema (principal) | CPT/HCPCS: 93971 ==

== ENCOUNTER 2024-07-31 | Outpatient (REF) | payer MEDICARE, MEDICAID, SELFPAY ==
--- NOTE | ~2024-07-31 | XR_ITS ---
EXAMINATION: XR FOREARM, LEFT CLINICAL INFORMATION: M79.602 - Pain in left arm COMPARISON: 09/18/2012. TECHNIQUE: AP and lateral views of the left forearm were obtained. FINDINGS: The bones and soft tissues are normal. No fracture. There is spurring of the radial tuberosity. Chondrocalcinosis in the wrist joint. Elbow joint demonstrates mild degenerative arthritis. No effusion. XR/XR forearm LT 2V IMPRESSION: Left forearm demonstrating no acute bony abnormalities. Electronically signed by: Yosi Ross MD 08/03/2024 09:14 AM EDT
--- NOTE | ~2024-07-31 | XR_ITS ---
EXAMINATION: XR HAND, LEFT CLINICAL INFORMATION: M79.602 - Pain in left arm COMPARISON: 10/10/2012. TECHNIQUE: PA, lateral, and oblique views of the left hand. FINDINGS: No fracture, dislocation, or suspicious bone lesion. Mild osteopenia diffusely. Normal alignment. Chondrocalcinosis of the wrist. Mild negative ulnar variance. Mild radiocarpal joint space narrowing. Mild to moderate degenerative arthrosis in the first CMC joint and STT joints. No discrete soft tissue abnormalities. XR/XR hand LT min 3V IMPRESSION: 1. No acute bony abnormalities of the left hand and wrist. 2. Wrist chondrocalcinosis suggesting CPPD. 3. Mild radiocarpal joint space narrowing, and mild to moderate degenerative arthritis in the first CMC joint and STT joints. Electronically signed by: Yosi Ross MD 08/03/2024 09:05 AM EDT
--- OUTSIDE RECORDS SUMMARY | 2024-09-01 08:18 | XMS_ITS | Patient Health Record ---
Author Organization [facility] Address [address] [facility] [place] [address] Care Team Providers Care Tattoo Identifier Name Role Phone Jaquan Knott MD Primary Care Provider Marisabel Weaver Unavailable [phone] Allergies Allergen (clinical drug ingredient) Drug/Non Drug [...] 81 MG 1 tablet Orally Once a day; Duration: 30 day(s) Active Ropinirole Hydrochloride Not-Taking Atorvastatin Calcium 40 MG as directed O rally Once a day Not-Taking amLODIPine Besylate 2.5 MG 1 tablet Oral ly Once a day; Duration: 30 day(s) Active Aspirin Not-Taking Vitamin D3 Not-Takin g zzzCompression Stockings 20-30mm Hg . . .; Duration: . Not-Takin g rOPINIRole HCl 0.5 MG 1 tablet 1 to 3 ho urs before bedtime Orally Once a day; Duration: 30 day(s) Active zzzCompression Stockings 20-30mm Hg . . .; Duration: . Not-Takin g Physical Therapy . . . 2-3x/week; Duration: 3-4 weeks 05/01/2023 Not-Taking amLODIPine Besylate 2.5 MG as directed O rally Once a day Not-Taking Vitamin D3 25 MCG (1000 UT) 1 tablet Orally Once a day; Duration: 30 day(s) Active Atorvastatin Calcium 40 MG 1 tablet Oral ly Once a day; Duration: 30 day(s) Active Social History Tobacco Use: [...] primary osteoarthritis of the ankle and/or foot (060424528) Primary osteoarthritis, left ankle and foot (M19.072) Active confirmed Problem Acquired hammer toe of right foot (9467429776930542) Other hammer toe(s) (acquired), right foot (M20.41) Active confirmed Problem Acquired hammer toe of left foot (3683363064965918) Other hammer toe(s) (acquired), left foot (M20.42) Active confirmed Problem Bilateral atherosclerosis of arteries of lower limbs (disorder) (16745025062687381 ) Atherosclerosis of [place] artery of both lower extremities, with unspecified presence of clinical manifestation (I70.203) Active confirmed Q7(A), Q8(2B), Q9(1B,2 C) Problem Interstitial myositis (87927459) Interstitial myositis of right foot (M60.171) Active confirmed Problem Cerebrovascular accident (397619370) Cerebrovascular accident (CVA), unspecified mechanism (I63.9) Active confirmed Vital Signs Blood pressure diastolic 80 mm Hg 06/11/2024 Height 5ft in 06/11/2024 Blood pressure systolic 140 mm Hg 06/11/2024 Weight 140 lbs 06/11/2024 BMI 27.34 kg/m2 06/11/2024 Procedures Procedure Date Ordered Date Performed Result Body Sit e 68878-BHQYESX NAIL, 6 OR MORE 11/21/2023 N/A 39036-Ptoooxeg Plate 11/21/2023 N/A 26443-Icltltcc Plate Each Additional 11/21/2023 N/A 01480-WAAFXSS NAIL, 6 OR MORE 03/12/2024 N/A 50792-VYALHSJ NAIL, 6 OR MORE 06/11/2024 N/A 90569-YAWZ SKIN LESIONS, 2 TO 4 06/11/2024 N/A Encounters Encounter Location Date Provider Diagnosis [address] [address] 11/21/2023 Marisabel Black Tinea unguium B35.1 ; Pain in right toe(s) M79.674 ; Pain in left toe(s) M79.675 ; Acute right ankle pain M25.571 ; Stress fracture of right foot with routine healing, subsequent encounter M84.374D ; Repetitive stress injury X50.3XXA and Ingrown nail L60.[address] [address] 03/12/2024 Marisabel Black Tinea unguium B35.1 ; Acute deep vein thrombosis (DVT) of calf muscle vein of right lower extremity I82.461 ; Pain in right toe(s) M79.674 ; Pain in left toe(s) M79.675 and Edema, lower extremity R60.[address] [address] 06/11/2024 Marisabel Black Tinea unguium B35.1 ; Pain in right toe(s) M79.674 ; Pain in left toe(s) M79.675 and Atherosclerosis of [place] artery of both lower extremities, with unspecified presence of clinical manifestation I70.[address] [address] 03/12/2024 Marisabel Black Assessments Encounter Date Diagnosis (ICD Code) Assessment Notes Treatment Notes Treatment Clinical Notes Section Notes 11/21/2023 Tinea unguium (ICD-10 - B35.1) 03/12/2024 [...] extremity (ICD-10 - R60.0) 06/11/2024 Atherosclerosis of [place] artery of both lower extremities, with unspecified [...] 06/24/2023 Ultrasound : Lower Extremity, right 11/2024 71499-CGLDXGJ NAIL, 6 OR MORE 11/21/2023 76404-SYFKMXG NAIL, 6 OR MORE 03/12/2024 78312-YFUMXPN NAIL, 6 OR MORE 06/11/2024 15516-AZCBAPF NAIL, 6 OR MORE 08/01/2023 33760-OVEPZVG NAIL, 1-5 12/24/2022 23507-AHZHAER NAIL, -5 12/21/2021 84995-MOSCAZK NAIL, -04/02/2022 20580-MAFXOEW NAIL, -06/25/2022 92871-JLKSTAM NAIL, -5 09/24/2022 32426-IGCVGHW NAIL, -5 09/12/2020 02605-KQMOPMK NAIL, -5 12/22/2020 47985-HBKCVKU NAIL, -5 04/03/2021 90070-RZNKQGF NAIL, 1-5 06/12/2021 33705-XDBYZFK NAIL, 1-5 09/14/2021 92827-Swwfotxz Plate 12/21/2021 41536-Imnogldb Plate 06/12/2021 44338-Ikytkauh Plate 04/03/2021 87548-Mueygcpo Plate 12/24/2022 63548-Wtqnsipn Plate 06/25/2022 73475-Fldvktdn Plate 09/12/2020 14141-Tuiqypxl Plate 11/21/2023 01142-Rlhwszao Plate Each Additional 30758 I&D ABSCESS- SIMPLE,SINGLE 022 54407-FJIU SKIN LESIONS, 2 TO 4 06/12/19 25 Next Appt Details Provider Name:Marisabel Don , 09/21/2024 01:30:00 PM, [address] [place], [address], Insurance Providers Payer Name Payer Address Payer Phone Subscriber Number Group Number Insured Name Patient Relationship to Insured Coverage Start Date Coverage End Date Medicare [facility] [employer] [address] [place] [address] [id number] Jeanette Harris Self - patient is the insured Medical (General) History Medical History History ICD Code Arthritis Cataracts High blood pressure Stroke Measles Chicken pox COVID-19 osteoarthritis- cortisone injections- le ft arm Surgical History Surgery Date(Month/Year) anterior cervical discectomy/fusion 2016 ovarian cyst diagnostic, laparoscropy hysterectomy 1983 right superior gland, parathyroidectomy adenoma 1983 left foot bony exostosis 5th toe hemipha langectomy 04/03/1996 right carpal tunnel 12/08/1998 left carpal tunnel 2x 05/29/1999, 08/28/19 00 Hospitalization History Reason Date(Month/Year) stroke - no ibuprofen, aleve 06/07/2010
== END 2024-07-31 00:01 | disposition home or self-care (01) ==
LOC: HO.XRAY
PROVIDERS: PCP Internal Medicine; Visit Provider Internal Medicine
DX: M79.602 Pain in left arm (principal); M79.632 Pain in left forearm
CPT/HCPCS: 73090; 73130

== ENCOUNTER 2024-07-31 13:52 | Outpatient (AMB) | payer MEDICARE, MEDICAID, SELFPAY ==
[2024-07-31 13:08] VITALS: BP 140/70; PULSE 100; TEMP 36.6; O2SAT 97
--- NOTE | 2024-07-31 13:08 | A.OFFPC_ITS ---
Vital Signs 07/31/24 13:08 Height 5 ft BP 140/70 H Blood Pressure Location Lt brachial Position Sitting Pulse 100 Pulse Source Pulse Oximeter Temp 97.8 F Temp Source Axillary Pulse Oximetry (%) 97 Oxygen Delivery Method Room Air Intake Visit Reasons: Routine Laboratory Engineer Required: No Accompanied by: Self / Same As Patient Allergies ibuprofen [From ADVIL] Allergy (Severe, Verified 07/31/24 13:08) DUE TO CVA-BLEED tramadol [TRAMADOL] Allergy (Severe, Verified 07/31/24 13:08) UNKNOWN amoxicillin [AMOXICILLIN] Allergy (Mild, Verified 07/31/24 13:08) RASH Penicillins [PENICILLINS] Allergy (Mild, Verified 07/31/24 13:08) RASH oxycodone [Percocet] Allergy (Unknown, Verified 07/31/24 13:08) Difficulty Breathing From PERCOCET Allergy (Severe, Uncoded 12/24/23 13:03) DIFFICULTY BREATHING, INCREASED HEART RATE From ALEVE Adverse Reaction (Severe, Uncoded 12/24/23 13:03) DUE TO CVA-BLEED Tobacco use date assessed: 07/31/24 Fall risk assessment: No Falls in past year Last assessed Fall Risk: 07/31/24 Dental Screening Dental Screen Date: 07/31/24 Did you have a dental visit in the last 12 months?: No Did you have a dental problem in the last 6 months where you did not have access to dental care?: No HPI HPI Comments History of Present Illness Details Pleasant 79-year-old female with a past medical history of CVA with right hemiparesis, carotid disease, hypertension, hyperlipidemia, RLS, osteoporosis presenting for follow up CV: follows with [facility] cardiology, Dr Flowers. On amlodipine, ASA, atorvastatin. Follows with Dr Merchant, vascular. Blood pressure is 140/70. On amlodipine 2.5mg daily. carotid endarterectomy 2017. Follows with Dr Mai for history of CVA. Follows with Dr Brennan, physiatry. Gets left shoulder injections. Increased pain and clicking in the left forearm and left hand MSK: Sees Dr Holbrook neurosurgery. [facility] 2015. Podiatry Dr nikhil Don s/p hysterectomy 1983 History of bilateral cataract-Dr Louis Mammo: declines mammogram Colonoscopy: declines ROS see HPI PHYSICAL EXAM: GENERAL: Alert and oriented x 3. NAD EYES: EOMI. Anicteric. HENT: Moist mucous membranes. No scleral icterus. No cervical lymphadenopathy. LUNGS: Clear to auscultation bilaterally. CARDIOVASCULAR: Regular rate and rhythm. No murmur. No JVD. ABDOMEN: Soft, non-tender +bs EXTREMITIES: No edema. Non-tender. SKIN: No rashes or lesions. Warm. NEUROLOGIC: No focal neurological deficits. CN II-XII grossly intact PSYCHIATRIC: Cooperative. Appropriate mood and affect [facility] Medical History Parathyroid adenoma Cervical vertebral fusion Stroke Surgical History History of cataract surgery History of carpal tunnel release Hx of thyroidectomy H/O toe surgery History of CEA (carotid endarterectomy) H/O: hysterectomy Family History Mother Heart disease Diabetes Father Heart disease Daughter Breast cancer HTN (hypertension) Daughter HTN (hypertension) Hearing loss Sister Pancreatic cancer Sister Stroke Brother Prostate cancer Social History Housing: House Alcohol intake: never Patient Tobacco Use Status: Never used Tobacco e-Cigarette/Vaping Use: Never Used service: No Current occupational status: retired Cognitive needs: No Hearing needs: No Vision needs: Yes (reading glasses) Questionnaire PHQ-9 Over the last 2 weeks, how often have you been bothered by any of the following problems? 1. Little interest or pleasure in doing things: not at all 2. Feeling down, depressed, or hopeless: not at all 3. Trouble falling or staying asleep, or sleeping too much: not at all 4. Feeling tired or having little energy: not at all 5. Poor appetite or overeating: not at all 6. Feeling bad about yourself - or that you are a failure or have let yourself or your family down: not at all 7. Trouble concentrating on things, such as reading the newspaper or watching television: not at all 8. Moving or speaking so slowly that other people could have noticed. Or the opposite - being so fidgety or restless that you have been moving around a lot more than usual: not at all 9. Thoughts that you would be better off or of hurting yourself in some way: not at all Total score: 0 Depression Screening Interpretation: Negative Depression Screening Done: Yes 17962 - PHQ-9 Billing: Yes Source: Developed by Drs. Jony Danielle, Ayala Schuler, Orville Frazier and colleagues, with an educational kae from [employer]. Thrive Questionnaire Date Thrive assessed: 07/31/24 I am a: Patient Within the past 12 months, did the food you bought not last and you didn't have the money to get more?: Never true Within the past 12 months, did you worry whether your food would run out before you got money to buy more?: Never true Do you have trouble paying for medicines?: No Do you have trouble getting transportation to medical appointments?: No Do you have trouble paying your heating and electricity bill?: No Do you have trouble taking care of your child, family member or friend?: No Do you have trouble with day-to-day activities such as bathing, preparing meals, shopping, managing finances, etc.?: No Are you currently unemployed and looking for a job?: No Are you interested in more education?: No THRIVE Score: 0 AUDIT C Alcohol Use Questionnaire (AUDIT-C) 1. How often do you have a drink containing alcohol?: Never 3. How often do you have six or more drinks on one occasion?: Never Total Score: 0 RYLIE-7 AMB Questionnaire RYLIE-7 Date RYLIE - 7 assessed: 07/31/24 Feeling nervous, anxious, or on edge: 0 = Not at all Not being able to stop or control worryin = Not at all Worrying too much about different things: 0 = Not at all Trouble relaxin = Not at all Being so restless that it is hard to sit still: 0 = Not at all Becoming easily annoyed or irritable: 0 = Not at all Feeling afraid as if something awful might happen: 0 = Not at all Total RYLIE-7 score (0-4 normal; 5-9 mild; 10-14 moderate; 15-21 severe): 0 Source: Developed by Ayala Esparza Kurt Kroenke a nd colleagues, with an educational kae from [employer]. Physical exam (Primary Care) Vital Signs: Last Vital Signs Temp 97.8 F 07/31/24 13:08 Pulse 100 07/31/24 13:08 BP 140/70 H 07/31/24 13:08 Pulse Ox 97 07/31/24 13:08 Oxygen Delivery Method Room Air 07/31/24 13:08 Tobacco/Smoking Status: Tobacco use Status Tobacco use date assessed 07/31/24 07/31/24 13:17 Patient Tobacco Use Status Never used Tobacco 07/31/24 13:08 e-Cigarette/Vaping Use Never Used 07/31/24 13:17 PHQ-9: PHQ-9 Score PHQ-9: Total score 0 08/01/24 08:14 Depression Screening Interpretation: Negative Thrive Assessment: Date of Thrive Assessment Date Thrive assessed 07/31/24 07/31/24 13:17 Coding Level of Care Code New Pt Level 4 (74677) Complex EM visit Add On G2211 Diagnoses Left forearm pain M79.632 Left arm pain M79.602 History of hemorrhagic cerebrovascular accident (CVA) with residual deficit I69.30 Essential hypertension I10 Additional Codes PHQ-9 - 93086 - PHQ-9 Billing: Yes ([id number]) Assessment & Plan Assessment & Plan (1) Left forearm pain: Code(s): M79.632 - Pain in left forearm Category: Medical (2) Left arm pain: Code(s): M79.602 - Pain in left arm Category: Medical (3) History of hemorrhagic cerebrovascular accident (CVA) with residual deficit: Code(s): I69.30 - Unspecified sequelae of cerebral infarction Category: Medical (4) Essential hypertension: Code(s): I10 - Essential (primary) hypertension Category: Medical Plan 79 yo to establish care Past medical, surgical, social reviewed referral physiatry for left arm and hand pain. xray ordered. advised bring disc Chronic medical conditions are stable Decline mammo, colonoscopy Orders: Orders Complete Blood Count Auto Diff 07/31/24 E89.0 - Postprocedural hypothyroidism, I10 - Essential (primary) hypertension, M79.602 - Pain in left arm, M79.642 - Pain in left hand, Z13.0 - Encounter for screening for diseases of the blood and blood-forming organs and certain disorders involving the immune mechanism XR forearm LT 2V 07/31/24 M79.602 - Pain in left arm, M79.632 - Pain in left forearm Comprehensive Met. Panel 07/31/24 E89.0 - Postprocedural hypothyroidism, I10 - Essential (primary) hypertension, M79.602 - Pain in left arm, M79.642 - Pain in left hand, Z13.0 - Encounter for screening for diseases of the blood and blood- forming organs and certain disorders involving the immune mechanism Lipid Panel 07/31/24 E89.0 - Postprocedural hypothyroidism, I10 - Essential (primary) hypertension, M79.602 - Pain in left arm, M79.642 - Pain in left hand, Z13.0 - Encounter for screening for diseases of the blood and blood-forming organs and certain disorders involving the immune mechanism TSH reflex Free T4 07/31/24 E89.0 - Postprocedural hypothyroidism, I10 - Essential (primary) hypertension, M79.602 - Pain in left arm, M79.642 - Pain in left hand, Z13.0 - Encounter for screening for diseases of the blood and blood- forming organs and certain disorders involving the immune mechanism XR hand LT min 3V 07/31/24 M79.602 - Pain in left arm, M79.632 - Pain in left forearm Referrals Physiatry Referral M79.602 - Pain in left arm, M79.632 - Pain in left forearm
--- OUTSIDE RECORDS SUMMARY | 2024-07-31 13:59 | XMS_ITS | Patient Health Record ---
[facility] Address [address] [place] [address] Care Team Providers Care Operations And Maintenance Manager Name Role Phone Jaquan Knott MD Primary Care Provider Marisabel Weaver Unavailable [phone] Allergies Allergen (clinical drug ingredient) Drug/Non Drug Allergy documented on EMR Reaction Allergy Type Onset Date Status ibuprofen Advil Unknown Drug Allergy Active acetaminophen / oxycodone Percocet shortness of breath Drug Allergy Active amoxicillin Amoxicillin Unknown Drug Allergy Act shannon codeine Codeine Unknown Drug Allergy Active morphine Morphine Unknown Drug Allergy Active Reason For Referral No Information Medications Medication SIG (Take, Route, Frequency, Duration) Notes Start Date End Date Status Aspirin Adult Low Dose 81 MG 1 tablet Orally Once a day for 30 day(s) Active Ropinirole Hydrochloride Not-Taking Atorvastatin Calcium 40 MG as directed O rally Once a day Not-Taking amLODIPine Besylate 2.5 MG 1 tablet Oral ly Once a day for 30 day(s) Active Aspirin Not-Taking Vitamin D3 Not-Takin g zzzCompression Stockings 20-30mm Hg . . . for . Not-Taking rOPINIRole HCl 0.5 MG 1 tablet 1 to 3 ho urs before bedtime Orally Once a day for 30 day(s) Active zzzCompression Stockings 20-30mm Hg . . . for . Not-Taking Physical Therapy . . . 2-3x/week for 3- 4 weeks 05/01/2023 Not-Taking amLODIPine Besylate 2.5 MG as directed O rally Once a day Not-Taking Vitamin D3 25 MCG (1000 UT) [...] primary osteoarthritis of the ankle and/or foot (720791910) Primary osteoarthritis, left ankle and foot (M19.072) Active confirmed Problem Acquired hammer toe of right foot (7585513226825504) Other hammer toe(s) (acquired), right foot (M20.41) Active confirmed Problem Acquired hammer toe of left foot (8360655516736610) Other hammer toe(s) (acquired), left foot (M20.42) Active confirmed Problem Atherosclerosis of [place] arteries of the extremities (203748892397939) Atherosclerosis of [place] artery of both lower extremities, with unspecified presence of clinical manifestation (I70.203) Active confirmed Q7(A), Q8(2B), Q9(1B,2 C) Problem Interstitial myositis (47832452) Interstitial myositis of right foot (M60.171) Active confirmed Problem Cerebrovascular accident (303681146) Cerebrovascular accident (CVA), unspecified mechanism (I63.9) Active confirmed Vital Signs Blood pressure diastolic 80 mm Hg 06/11/2024 Height 5ft in 06/11/2024 Blood pressure systolic 140 mm Hg 06/11/2024 Weight 140 lbs 06/11/2024 BMI 27.34 kg/m2 06/11/2024 Procedures Procedure Date Ordered Date Performed Result Body Sit e 86577-MMTXMWI NAIL, OR MORE 08/01/2023 N/A 60429-ZZHARHN NAIL, OR MORE 11/21/2023 N/A 18967-Zrzagyhc Plate 11/21/2023 N/A 86769-Xnurvuco Plate Each Additional 11/21/2023 N/A 00528-SEMCNHW NAIL, 6 OR MORE 03/12/2024 N/A 37987-PHYQTTP NAIL, 6 OR MORE 06/11/2024 N/A 38665-JETQ SKIN LESIONS, 2 TO 4 06/11/2024 N/A Encounters Encounter Location Date Provider Diagnosis [address] [address] 08/01/2023 Marisabel Black Tinea unguium B35.1 ; Pain in right toe(s) M79.674 ; Pain in left toe(s) M79.675 ; Acute right ankle pain M25.571 ; Stress fracture of right foot with routine healing, subsequent encounter M84.374D and Repetitive stress injury X50.3XXA [address] [address] 11/21/2023 Marisabel Black Tinea unguium B35.1 ; Pain in right toe(s) M79.674 ; Pain in left toe(s) M79.675 ; Acute right ankle pain M25.571 ; Stress fracture of right foot with routine healing, subsequent encounter M84.374D ; Repetitive stress injury X50.3XXA and Ingrown nail L60.[address] [address] 03/12/2024 Marisabel Black Tinea unguium B35.1 ; Acute deep vein thrombosis (DVT) of calf muscle vein of right lower extremity I82.461 ; Pain in right toe(s) M79.674 ; Pain in left toe(s) M79.675 and Edema, lower extremity R60.[address] [address] 06/11/2024 Marisabel Black Tinea unguium B35.1 ; Pain in right toe(s) M79.674 ; Pain in left toe(s) M79.675 and Atherosclerosis of [place] artery of both lower extremities, with unspecified presence of clinical manifestation I70.[address] [address] 03/12/2024 Marisabel Black Assessments Encounter Date Diagnosis (ICD Code) Assessment Notes Treatment Notes Treatment Clinical Notes Section Notes 08/01/2023 Tinea unguium (ICD-10 - B35.1) 11/21/2023 Tinea unguium (ICD-10 - B35.1) 03/12/2024 Tinea unguium (ICD-10 - B35.1) 03/12/2024 Acute deep vein thrombosis (DVT) of calf muscle vein of right lower extremity (ICD-10 - I82.461) 06/11/2024 Tinea unguium (ICD-10 - B35.1) 06/11/2024 Pain in right toe(s) (ICD-10 - M79.674) 03/12/2024 Pain in right toe(s) (ICD-10 - M79.674) 11/21/2023 Pain in right toe(s) (ICD-10 - M79.674) 08/01/2023 Pain in right toe(s) (ICD-10 - M79.674) 11/21/2023 Pain in left toe(s) (ICD-10 - M79.675) 08/01/2023 Pain in left toe(s) (ICD-10 - M79.675) 06/11/2024 Pain in left toe(s) (ICD-10 - M79.675) 03/12/2024 Pain in left toe(s) (ICD-10 - M79.675) 03/12/2024 Edema, lower extremity (ICD-10 - R60.0) 06/11/2024 Atherosclerosis of [place] artery of both lower extremities, with unspecified presence of clinical manifestation (ICD-10 - I70.203) Q7(A), Q8(2B), Q9(1B,2C) 11/21/2023 Acute right ankle pain (ICD-10 - M25.571) 08/01/2023 Acute right ankle pain (ICD-10 - M25.571) 08/01/2023 Stress fracture of right foot with routine healing, subsequent encounter (ICD-10 - M84.374D) 11/21/2023 Stress fracture of right foot with routine healing, subsequent encounter (ICD-10 - M84.374D) 11/21/2023 Repetitive stress injury (ICD-10 - X50.3XXA) 08/01/2023 Repetitive stress injury (ICD-10 - X50.3XXA) 11/21/2023 Ingrown nail (ICD-10 - L60.0) Plan Of Treatment Pending Test Test Name Order Date MRI : Ankle, right 06/24/2023 Ultrasound : Lower Extremity, right 11/2024 04133-WZCXVRB NAIL, 6 OR MORE 11/21/2023 36443-ITARBXQ NAIL, 6 OR MORE 03/12/2024 11980-VRXXUUQ NAIL, 6 OR MORE 06/11/2024 49202-USGSYBV NAIL, 6 OR MORE 08/01/2023 22873-XSXUXFV NAIL, 1-5 12/24/2022 39815-GBGHXDA NAIL, 1-5 12/21/2021 44034-OVRUGSE NAIL, -5 04/02/2022 49038-JVPEWXA NAIL, -5 06/25/2022 02471-QNSMITA NAIL, -5 09/24/2022 88117-NXWLPID NAIL, 1-5 09/12/2020 54968-TTSSYTX NAIL, 1-5 12/22/2020 25443-FLYOVMH NAIL, 1-5 04/03/2021 00305-RHSMXCA NAIL, 1-5 06/12/2021 56482-VGKFPVW NAIL, 1-5 09/14/2021 78563-Nzkezsjc Plate 12/21/2021 21180-Bxjzymuc Plate 06/12/2021 61499-Xjfqudfv Plate 04/03/2021 42603-Lqlxtyjq Plate 12/24/2022 52156-Owqommhv Plate 06/25/2022 79755-Qptyhgaw Plate 09/12/2020 48830-Uaurxamn Plate 11/21/2023 61948-Iftrgsox Plate Each Additional 91341 I&D ABSCESS- SIMPLE,SINGLE 022 73827-EFHJ SKIN LESIONS, 2 TO 4 06/12/19 25 Next Appt Details Provider Name:Marisabel Weiner Arian , 09/21/2024 01:30:00 PM, [address], [place], [address], Insurance Providers Payer Name Payer Address Payer Phone Subscriber Number Group Number Insured Name Patient Relationship to Insured Coverage Start Date Coverage End Date [employer] [address] [place] [address] [id number] Van philipElviaa Self - patient is the insured Medical [...]
== END 2024-07-31 14:35 | disposition home or self-care (01) ==
LOC: HO.HMCHD 13:53
PROVIDERS: PCP Internal Medicine; Visit Provider Internal Medicine
DX: M79.632 Pain in left forearm (principal); M79.602 Pain in left arm; I69.30 Unspecified sequelae of cerebral infarction; I10 Essential (primary) hypertension

== ENCOUNTER → 2024-07-31 13:52 | Outpatient (BNVA) | payer MEDICARE, MEDICAID, SELFPAY | PROVIDERS: PCP Internal Medicine; Visit Provider Internal Medicine | DX: M79.632 Pain in left forearm (principal); M79.602 Pain in left arm; I10 Essential (primary) hypertension; E78.5 Hyperlipidemia, unspecified; G25.81 Restless legs syndrome; I69.351 Hemiplegia and hemiparesis following cerebral infarction affecting right dominant side; Z79.82 Long term (current) use of aspirin; Z79.899 Other long term (current) drug therapy | CPT/HCPCS: 96127; 99202 ==

== ENCOUNTER → 2024-07-31 15:02 | Outpatient (BNV) | payer MEDICARE, MEDICAID, SELFPAY | PROVIDERS: PCP Internal Medicine; Visit Provider Radiology Diagnostic Radiology | DX: M11.232 Other chondrocalcinosis, left wrist (principal); M79.602 Pain in left arm | CPT/HCPCS: 73090; 73130 ==

== ENCOUNTER 2024-12-25 12:56 | Outpatient (AMB) | payer MEDICARE, MEDICAID, SELFPAY ==
--- NOTE | 2024-12-25 09:49 | A.OFFPC_ITS ---
Vital Signs 12/25/24 13:05 Height 5 ft Weight 65.317 kg BMI 28.1 BP 138/76 Blood Pressure Location Lt brachial Position Sitting Pulse 57 Pulse Source Pulse Oximeter Temp 97.7 F Temp Source Temporal Artery Scan Pulse Oximetry (%) 98 Oxygen Delivery Method Room Air Intake Visit Reasons: 5 month f/u Bilingual Speech Language Pathologist Required: No Accompanied by: Daughter Allergies ibuprofen (From ADVIL) Allergy (Severe, Verified 12/25/24 09:49) DUE TO CVA-BLEED tramadol (TRAMADOL) Allergy (Severe, Verified 12/25/24 09:49) UNKNOWN amoxicillin (AMOXICILLIN) Allergy (Mild, Verified 12/25/24 09:49) RASH Penicillins (PENICILLINS) Allergy (Mild, Verified 12/25/24 09:49) RASH oxycodone (Percocet) Allergy (Unknown, Verified 12/25/24 09:49) Difficulty Breathing From PERCOCET Allergy (Severe, Uncoded 12/24/23 13:03) DIFFICULTY BREATHING, INCREASED HEART RATE From ALEVE Adverse Reaction (Severe, Uncoded 12/24/23 13:03) DUE TO CVA-BLEED Medication List - Last Reconciled 12/25/24 by LEEROY Wild amlodipine 2.5 mg PO DAILY aspirin (Adult Low Dose Aspirin) 81 mg PO DAILY atorvastatin 40 mg PO DAILY cholecalciferol (vitamin D3) 25 mcg PO DAILY ropinirole 0.5 mg PO TID Tobacco use date assessed: 12/25/24 Fall risk assessment: No Falls in past year Last assessed Fall Risk: 12/25/24 Dental Screening Dental Screen Date: 12/25/24 Did you have a dental visit in the last 12 months?: No Did you have a dental problem in the last 6 months where you did not have access to dental care?: No HPI HPI Comments History of Present Illness Details Pleasant 79-year-old female with a past medical history of CVA with right hemiparesis, carotid disease, hypertension, hyperlipidemia, RLS, osteoporosis presenting for follow up. Presents with daughterLupis. History of hemorrhagic CVA-has not followed with Neurology in many months. Sequela of weakness on the right side. Has been also following with Cardiology but has not been seen in several years [facility], Dr Flowers. Does continue following with vascular surgery. On aspirin, atorvastatin. carotid endarterectomy 2018. Hypertension-blood pressure 138/76. On amlodipine 2.5 mg daily Hyperlipidemia-111. On atorvastatin 40 mg daily Follows with Dr Brennan, physiatry. Gets left shoulder injections. Increased pain and clicking in the left forearm and left hand Sees Dr Holbrook neurosurgery. [facility] [address]. Podiatry Dr nikhil Don s/p hysterectomy 1984 History of bilateral cataract-Dr Louis Concerns: Fecal incontince- small amount of leakage. Sometimes normal BM, sometimes constipation, sometimes diarrhea. Eliminating lactose has helped. Has tried elimination diet. Not using fiber supplement. Has never undergone colonoscopy and refuses. No reported history in the family of colon cancer Wooziness upon changing position that lasts several sec Health maintenance: Mammo: declines mammogram Colonoscopy: declines ROS see HPI PHYSICAL EXAM: GENERAL: Alert and oriented x 3. NAD EYES: EOMI. Anicteric. HENT: Moist mucous membranes. No scleral icterus. No cervical lymphadenopathy. LUNGS: Clear to auscultation bilaterally. CARDIOVASCULAR: Regular rate and rhythm. IV/ holosystolic murmur. No JVD. ABDOMEN: Soft, non-tender +bs EXTREMITIES: No edema. Non-tender. SKIN: No rashes or lesions. Warm. NEUROLOGIC: No focal neurological deficits. CN II-XII grossly intact PSYCHIATRIC: Cooperative. Appropriate mood and affect [facility] Medical History Parathyroid adenoma Cervical vertebral fusion Stroke Surgical History History of cataract surgery History of carpal tunnel release Hx of thyroidectomy H/O toe surgery History of CEA (carotid endarterectomy) H/O: hysterectomy Family History Mother Heart disease Diabetes Father Heart disease Daughter Breast cancer HTN (hypertension) Daughter HTN (hypertension) Hearing loss Sister Pancreatic cancer Sister Stroke Brother Prostate cancer Social History Housing: House Alcohol intake: never Patient Tobacco Use Status: Never used Tobacco e-Cigarette/Vaping Use: Never Used service: No Current occupational status: retired Cognitive needs: Yes (wheelchair) Hearing needs: No Vision needs: Yes (reading glasses) Questionnaire PHQ-9 Over the last 2 weeks, how often have you been bothered by any of the following problems? 1. Little interest or pleasure in doing things: not at all 2. Feeling down, depressed, or hopeless: not at all 3. Trouble falling or staying asleep, or sleeping too much: not at all 4. Feeling tired or having little energy: not at all 5. Poor appetite or overeating: not at all 6. Feeling bad about yourself - or that you are a failure or have let yourself or your family down: not at all 7. Trouble concentrating on things, such as reading the newspaper or watching television: not at all 8. Moving or speaking so slowly that other people could have noticed. Or the opposite - being so fidgety or restless that you have been moving around a lot more than usual: not at all 9. Thoughts that you would be better off or of hurting yourself in some way: not at all Total score: 0 Source: Developed by Drs. Jony Danielle, Ayala Schuler, Orville Frazier and colleagues, with an educational kae from [employer]. Thrive Questionnaire Date Thrive assessed: 12/25/24 I am a: Patient Within the past 12 months, did the food you bought not last and you didn't have the money to get more?: Never true Within the past 12 months, did you worry whether your food would run out before you got money to buy more?: Never true Do you have trouble paying for medicines?: No Do you have trouble getting transportation to medical appointments?: No Do you have trouble paying your heating and electricity bill?: No Do you have trouble taking care of your child, family member or friend?: No Do you have trouble with day-to-day activities such as bathing, preparing meals, shopping, managing finances, etc.?: No Are you currently unemployed and looking for a job?: No Are you interested in more education?: No THRIVE Score: 0 AUDIT C Alcohol Use Questionnaire (AUDIT-C) 1. How often do you have a drink containing alcohol?: Never 3. How often do you have six or more drinks on one occasion?: Never Total Score: 0 RYLIE-7 AMB Questionnaire RYLIE-7 Date RYLIE - 7 assessed: 12/25/24 Feeling nervous, anxious, or on edge: 0 = Not at all Not being able to stop or control worryin = Not at all Worrying too much about different things: 0 = Not at all Trouble relaxin = Not at all Being so restless that it is hard to sit still: 0 = Not at all Becoming easily annoyed or irritable: 0 = Not at all Feeling afraid as if something awful might happen: 0 = Not at all Total RYLIE-7 score (0-4 normal; 5-9 mild; 10-14 moderate; 15-21 severe): 0 Source: Developed by Drs. Jony Danielle, Ayala Schuler, Orville Frazier and colleagues, with an educational kae from [employer]. Physical exam (Primary Care) Vital Signs: Last Vital Signs Temp 97.7 F 12/25/24 13:05 Pulse 57 12/25/24 13:05 BP 138/76 12/25/24 13:05 Pulse Ox 98 12/25/24 13:05 Oxygen Delivery Method Room Air 12/25/24 13:05 BMI result Body Mass Index 28.1 Tobacco/Smoking Status: Tobacco use Status Tobacco use date assessed 12/25/24 12/25/24 09:50 Patient Tobacco Use Status Never used Tobacco 12/25/24 09:50 e-Cigarette/Vaping Use Never Used 12/25/24 09:50 PHQ-9: PHQ-9 Score PHQ-9: Total score 0 12/25/24 13:10 Thrive Assessment: Date of Thrive Assessment Date Thrive assessed 12/25/24 12/25/24 09:50 Coding Level of Care Code Est Pt Level 4 (05582) Complex EM visit Add On G2211 Diagnoses Essential hypertension I10 Fecal incontinence R15.9 Change in bowel function R19.8 Mixed irritable bowel syndrome K58.2 Holosystolic murmur R01.1 Bilateral carotid artery stenosis I65.23 Laterality: bilateral Assessment & Plan Assessment & Plan (1) Essential hypertension: Code(s): I10 - Essential (primary) hypertension Category: Medical Plan: Controlled. Continue amlodipine 2.5 mg daily. Low-sodium diet (2) Fecal incontinence: Code(s): R15.9 - Full incontinence of feces Category: Medical Plan: Given change in bowel function. Referred to Gastroenterology. Suspect underlying mixed IBS. Recommend fiber supplement and elimination/FODMAP diet (3) Change in bowel function: Code(s): R19.8 - Other specified symptoms and signs involving the digestive system and abdomen Category: Medical Plan: As above (4) Mixed irritable bowel syndrome: Code(s): K58.2 - Mixed irritable bowel syndrome Category: Medical Plan: As above (5) Holosystolic murmur: Code(s): R01.1 - Cardiac murmur, unspecified Category: Medical Plan: With associated dizziness. Echocardiogram ordered (6) Carotid stenosis: Comment: Right carotid endarterectomy 01/27/2018 Code(s): I65.29 - Occlusion and stenosis of unspecified carotid artery Category: Medical Qualifiers: Laterality: bilateral Qualified Code(s): I65.23 - Occlusion and stenosis of bilateral carotid arteries Plan: Stable. Continue aspirin/statin Plan Follow-up in the office in 6 months. Labs to be completed as ordered Orders: Orders Basic Metabolic Panel Today I10 - Essential (primary) hypertension, I69.30 - Unspecified sequelae of cerebral infarction, Z13.0 - Encounter for screening for diseases of the blood and blood-forming organs and certain disorders involving the immune mechanism Complete Blood Count Auto Diff Today I10 - Essential (primary) hypertension, I69.30 - Unspecified sequelae of cerebral infarction, Z13.0 - Encounter for screening for diseases of the blood and blood-forming organs and certain disorders involving the immune mechanism Lipid Panel Today I10 - Essential (primary) hypertension, I69.30 - Unspecified sequelae of cerebral infarction, Z13.0 - Encounter for screening for diseases of the blood and blood-forming organs and certain disorders involving the immune mechanism Liver Panel Today I10 - Essential (primary) hypertension, I69.30 - Unspecified sequelae of cerebral infarction, Z13.0 - Encounter for screening for diseases of the blood and blood-forming organs and certain disorders involving the immune mechanism Vitamin D 25-OH Total Today I10 - Essential (primary) hypertension, I69.30 - Unspecified sequelae of cerebral infarction, Z13.0 - Encounter for screening for diseases of the blood and blood-forming organs and certain disorders involving the immune mechanism CA echo transthoracic complete Today R01.1 - Cardiac murmur, unspecified, R42 - Dizziness and giddiness Referrals Gastroenterology Referral I10 - Essential (primary) hypertension, K58.2 - Mixed irritable bowel syndrome, R15.9 - Full incontinence of feces, R19.8 - Other specified symptoms and signs involving the digestive system and abdomen
[2024-12-25 13:05] VITALS: BP 138/76; PULSE 57; TEMP 36.5; O2SAT 98; BMI 28.1
--- OUTSIDE RECORDS SUMMARY | 2024-12-25 14:57 | XMS_ITS | Patient Health Record ---
[facility] Organization [facility] Address [address] [place] [address] Care Team Providers Care Document Manager Name Role Phone Anai Bright Primary Care Provider Marisabel Chaudhary Unavailable [phone] Allergies Allergen (clinical drug ingredient) Drug/Non Drug [...] Duration) Notes Start Date End Date Status zzzCompression Stockings 20-30mm Hg . . .; Duration: . Not-Takin g Physical Therapy . . . 2-3x/week; Duration: 3-4 weeks 05/01/2023 Not-Taking zzzCompression Stockings 20-30mm Hg . . .; Duration: . Not-Takin g Atorvastatin Calcium 40 MG as directed O raina Once a day Not-Taking rOPINIRole HCl 0.5 MG 1 tablet 1 to 3 ho urs before bedtime Orally Once a day; Duration: 30 day(s) Active Atorvastatin Calcium 40 MG 1 tablet Oral ly Once a day; Duration: 30 day(s) Active Vitamin D3 25 MCG (1000 UT) 1 tablet Orally Once a day; Duration: 30 day(s) Active Ropinirole Hydrochloride Not-Taking Vitamin D3 Not-Takin g amLODIPine Besylate 2.5 MG 1 tablet Oral ly Once a day; Duration: 30 day(s) Active Aspirin Not-Taking Aspirin Adult Low Dose 81 MG 1 tablet Orally Once a day; Duration: 30 day(s) Active amLODIPine Besylate 2.5 MG as directed O rally Once a day Not-Taking Immunizations Vaccine Route Administration Date Status Comme nts Influenza Unknown 09/21/2024 Refused Social History Tobacco Use: Social History Observation [...] Are you an other tobacco user? No AUDIT-C (Standard) Question Answer Notes Did you have a drink containing alcohol in the p ast year? No Points 0 Interpretation Negative Problems Problem Type SNOMED Code ICD Code Onset Dates Problem Status W/U Status Risk Notes Problem Bilateral atherosclerosis of arteries of lower limbs (disorder) (33874630992238161 ) Atherosclerosis of [place] artery of both lower extremities, with unspecified presence of clinical manifestation (I70.203) Active confirmed Q7(A), Q8(2B), Q9(1B,2 C) Vital Signs Blood pressure diastolic 80 mm Hg 09/21/2024 Height 5ft in 09/21/2024 Blood pressure systolic 132 mm Hg 09/21/2024 Weight 143 lbs 09/21/2024 BMI 27.92 kg/m2 09/21/2024 Procedures Procedure Date Ordered Date Performed Result Body Sit e 90942-FBWTTLT NAIL, 6 OR MORE 03/12/2024 N/A 53126-LFIOJJL NAIL, 6 OR MORE 06/11/2024 N/A 71896-FAGH SKIN LESIONS, 2 TO 4 06/11/2024 N/A 46769-XBODOOD NAIL, 6 OR MORE 09/21/2024 N/A 15353-PCAJ SKIN LESIONS, 2 TO 4 09/21/2024 N/A Encounters Encounter Location Date Provider Diagnosis [facility] [address] [place] [address] 03/12/2024 Marisabel Black Tinea unguium B35.1 ; Acute deep vein thrombosis (DVT) of calf muscle vein of right lower extremity I82.461 ; Pain in right toe(s) M79.674 ; Pain in left toe(s) M79.675 and Edema, lower extremity R60.[address] [address] 06/11/2024 Marisabel Black Tinea unguium B35.1 ; Pain in right toe(s) M79.674 ; Pain in left toe(s) M79.675 and Atherosclerosis of [place] artery of both lower extremities, with unspecified presence of clinical manifestation I70.[address] [address] 09/21/2024 Marisabel Black Tinea unguium B35.1 ; Pain in right toe(s) M79.674 ; Pain in left toe(s) M79.675 and Atherosclerosis of [place] artery of both lower extremities, with unspecified presence of clinical manifestation I70.[address] [address] 03/12/2024 Marisabel Black Assessments Encounter Date Diagnosis (ICD Code) Assessment Notes Treatment Notes Treatment Clinical Notes Section Notes 03/12/2024 Tinea unguium (ICD-10 - B35.1) 03/12/2024 Acute deep vein thrombosis (DVT) of calf muscle vein of right lower extremity (ICD-10 - I82.461) 06/11/2024 Tinea unguium (ICD-10 - B35.1) 09/21/2024 Tinea unguium (ICD-10 - B35.1) 09/21/2024 Pain in right toe(s) (ICD-10 - M79.674) 03/12/2024 Pain in right toe(s) (ICD-10 - M79.674) 06/11/2024 Pain in right toe(s) (ICD-10 - M79.674) 06/11/2024 Pain in left toe(s) (ICD-10 - M79.675) 03/12/2024 Pain in left toe(s) (ICD-10 - M79.675) 09/21/2024 Pain in left toe(s) (ICD-10 - M79.675) 09/21/2024 Atherosclerosis of [place] artery of both lower extremities, with unspecified presence of clinical manifestation (ICD-10 - I70.203) Q7(A), Q8(2B), Q9(1B,2C) 03/12/2024 Edema, lower extremity (ICD-10 - R60.0) 06/11/2024 Atherosclerosis of [place] artery of both lower extremities, with unspecified presence of clinical manifestation (ICD-10 - I70.203) Q7(A), Q8(2B), Q9(1B,2C) Plan Of Treatment Pending Test Test Name Order Date MRI : Ankle, right 06/24/2023 Ultrasound : Lower Extremity, right 11/2024 85555-HLOCFFN NAIL, 6 OR MORE 11/21/2023 23523-SQGRRLX NAIL, 6 OR MORE 03/12/2024 14644-COWFZSL NAIL, 6 OR MORE 06/11/2024 42243-ZCCBBPJ NAIL, 6 OR MORE 09/21/2024 56517-LNQOFQH NAIL, 6 OR MORE 08/01/2023 65931-PTJLJGQ NAIL, 1-5 12/24/2022 04596-HNCONKN NAIL, 1-5 12/21/2021 02763-CKETUYJ NAIL, 1-5 04/02/2022 53449-RPYFPIN NAIL, 1-5 06/25/2022 01182-DHQVZSY NAIL, 1-5 09/24/2022 58643-AGRZFCA NAIL, 1-5 09/12/2020 71082-BTLWUAV NAIL, 1-5 12/22/2020 78685-BHVUXDN NAIL, 1-5 04/03/2021 37920-OTCHYIW NAIL, 1-5 06/12/2021 24265-VUBNMCV NAIL, 1-5 09/14/2021 27641-Ikjrurmr Plate 12/21/2021 24427-Cxmhrpue Plate 06/12/2021 45821-Ihdnkgky Plate 04/03/2021 27764-Hhdnxtpt Plate 12/24/2022 36438-Qcrukhqh Plate 06/25/2022 51063-Qbattqhs Plate 09/12/2020 86897-Pkntqzhi Plate 11/21/2023 65311-Yskdwvne Plate Each Additional 88202 I&D ABSCESS- SIMPLE,SINGLE 022 92984-VHXE SKIN LESIONS, 2 TO 4 09/22/19 25 63853-RNMC SKIN LESIONS, 2 TO 4 06/12/19 25 Next Appt Details Provider Name:Marisabel Don , 12/28/2024 01:30:00 PM, [address] [facility], [place], [address], Insurance Providers Payer Name Payer Address Payer Phone Subscriber Number Group Number Insured Name Patient Relationship to Insured Coverage Start Date Coverage End Date Medicare National [employer] [address] [place] [address] [id number] Morris tte, Jeanette Self - patient is the insured Medical [...]
== END 2024-12-25 13:55 | disposition home or self-care (01) ==
LOC: HO.HMCHD 12:57
PROVIDERS: PCP Internal Medicine; Visit Provider Physician Assistant
DX: I10 Essential (primary) hypertension (principal); R15.9 Full incontinence of feces; R19.8 Other specified symptoms and signs involving the digestive system and abdomen; K58.2 Mixed irritable bowel syndrome; R01.1 Cardiac murmur, unspecified; I65.23 Occlusion and stenosis of bilateral carotid arteries

== ENCOUNTER → 2024-12-25 12:56 | Outpatient (BNVA) | payer MEDICARE, MEDICAID, SELFPAY | PROVIDERS: PCP Internal Medicine; Visit Provider Physician Assistant | DX: I10 Essential (primary) hypertension (principal); R15.9 Full incontinence of feces; R19.8 Other specified symptoms and signs involving the digestive system and abdomen; K58.2 Mixed irritable bowel syndrome; R01.1 Cardiac murmur, unspecified; I65.23 Occlusion and stenosis of bilateral carotid arteries; I69.351 Hemiplegia and hemiparesis following cerebral infarction affecting right dominant side; E78.5 Hyperlipidemia, unspecified; Z79.82 Long term (current) use of aspirin; Z79.899 Other long term (current) drug therapy; Z90.710 Acquired absence of both cervix and uterus; Z13.30 Encounter for screening examination for mental health and behavioral disorders, unspecified; Z13.39 Encounter for screening examination for other mental health and behavioral disorders | CPT/HCPCS: 96127; 99212 ==

== ENCOUNTER 2025-01-01 13:24 | Outpatient (REF) | payer MEDICARE, MEDICAID, SELFPAY ==
--- OUTSIDE RECORDS SUMMARY | 2024-12-28 09:30 | XMS_ITS ---
Author Organization [facility] Address [address] [place] [address] Care Team Providers Care Design Engineer Products Name Role Phone Davalos, Aurea Primary Care Provider Unavailabl e Arian Marisabel Unavailable [phone] Allergies Allergen (clinical drug ingredient) Drug/Non Drug Allergy documented on EMR Reaction Allergy Type Onset Date Status ibuprofen Advil Unknown Drug Allergy Active acetaminophen / oxycodone Percocet shortness of breath Drug Allergy Active amoxicillin Amoxicillin Unknown Drug Allergy Act shannon codeine Codeine Unknown Drug Allergy Active morphine Morphine Unknown Drug Allergy Active REASON FOR VISIT At Risk Footcare, Painful nail(s) aggrevated by shoes causing difficulty standing/walking, Heel pain, Ingrown Nail Medications Medication SIG (Take, Route, Frequency, Duration) Notes Start Date End Date Status zzzCompression Stockings 20-30mm Hg . . .; Duration: . Not-Mansi g rOPINIRole HCl 0.5 MG 1 tablet 1 to 3 ho urs before bedtime Orally Once a day; Duration: 30 day(s) Active Vitamin D3 25 MCG (1000 UT) 1 tablet Orally Once a day; Duration: 30 day(s) Active Atorvastatin Calcium 40 MG 1 tablet Oral ly Once a day; Duration: 30 day(s) Active Aspirin Adult Low Dose 81 MG 1 tablet Orally Once a day; Duration: 30 day(s) Active Night Splint AFO - L1930 1 wear at rest; Duration: 30 days Active amLODIPine Besylate 2.5 MG as directed O rally Once a day Not-Taking amLODIPine Besylate 2.5 MG 1 tablet Oral ly Once a day; Duration: 30 day(s) Active Aspirin Not-Taking Vitamin D3 Not-Takin g zzzCompression Stockings 20-30mm Hg . . .; Duration: . Not-Takin g Physical Therapy . . . 2-3x/week; Duration: 3-4 weeks 05/01/2023 Not-Taking Ropinirole Hydrochloride Not-Taking Atorvastatin Calcium 40 MG as directed O rally Once a day Not-Taking Social History Tobacco Use: Social History Observation Description Date Details (start date - stop date) Never Smoker NA - NA Alcohol Screen Question Answer Notes Did you have a drink containing alcohol in the p ast year? No Points 0 Interpretation Negative Tobacco use other than smoking: Question Answer Notes Are you an other tobacco user? No Tobacco Control (Standard) Question Answer Notes Tobacco use: Nonsmoker Additional Findings: Tobacco non-user Current no nsmoker AUDIT-C (Standard) Question Answer Notes Did you have a drink containing alcohol in the p ast year? No Points 0 Interpretation Negative Problems Problem Type SNOMED Code ICD Code Onset Dates Problem Status W/U Status Risk Notes Problem Plantar fasciitis of right foot (387569219034976 01) Plantar fasciitis of right foot (M72.2) Active confirmed Problem Interstitial myositis (91136146) Interstitial myositis of right foot (M60.171) Active confirmed Vital Signs Height 5ft in 12/28/2024 Weight 144 lbs 12/28/2024 BMI 28.12 kg/m2 12/28/2024 Blood pressure systolic 136 mm Hg 12/29/19 25 Blood pressure diastolic 60 mm Hg 025 Procedures Procedure Date Ordered Date Performed Result Body Sit e 52456-DLHCEPW NAIL, 6 OR MORE 12/28/2024 N/A 89072-Gnhoxihl Plate 12/28/2024 N/A 61150-NDCR SKIN LESIONS, 2 TO 4 12/28/2024 N/A Encounters Encounter Location Date Provider Diagnosis [facility] [address] [place] [address] 12/28/2024 Marisabel Black Tinea unguium B35.1 ; Pain in right toe(s) M79.674 ; Pain in left toe(s) M79.675 ; Atherosclerosis of [place] artery of both lower extremities, with unspecified presence of clinical manifestation I70.203 ; Pain in right foot M79.671 ; Plantar fasciitis of right foot M72.2 ; 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 ; Bursitis of right foot M77.51 and Ingrown nail L60.0 Assessments Encounter Date Diagnosis (ICD Code) Assessment Notes Treatment Notes Treatment Clinical Notes Section Notes 12/28/2024 Tinea unguium (ICD-10 - B35.1) 12/28/2024 Pain in right toe(s) (ICD-10 - M79.674) 12/28/2024 Pain in left toe(s) (ICD-10 - M79.675) 12/28/2024 Atherosclerosis of [place] artery of both lower extremities, with unspecified presence of clinical manifestation (ICD-10 - I70.203) Q7(A), Q8(2B), Q9(1B,2C) 12/28/2024 Pain in right foot (ICD-10 - M79.671) 12/28/2024 Plantar fasciitis of right foot (ICD-10 - M72.2) Patient Educated with: HEEL CORD STRETCHES.pdf (HEEL CORD STRETCHES.pdf ) Patient Educated with: RICE THERAPY.pdf (RICE THERAPY.pdf) 12/28/2024 Interstitial myositis of right foot (ICD-10 - M60.171) 12/28/2024 Bursitis of right foot (ICD-10 - M77.51) 12/28/2024 Ingrown nail (ICD-10 - L60.0) Plan Of Treatment Medication Medication Name Sig Start Date Stop Date Notes Night Splint AFO - L1930 1 wear at rest; Duration: 30 days Treatment Notes Assessment Notes Plantar fasciitis of right foot Patient Educated with: HEEL CORD STRETCHES.pdf (HEEL CORD STRETCHES.pdf) Patient Educated with: RICE THERAPY.pdf (RICE THERAPY.pdf) Pending Test Test Name Order Date 88836-CPQOASS NAIL, 6 OR MORE 12/28/2024 43655-Gnsishie Plate 12/28/2024 29347-TABO SKIN LESIONS, 2 TO 4 12/29/19 Next Appt Details Follow Up: 3 Months, Reason: Provider Name:Marisabel Don , 04/22/2025 02:15:00 PM, [address] [place] [address], [place], [address], Procedure Notes * Category Sub-Category Detail Notes Nail Avulsion Procedure A fine sterile e levator was placed between the eponychium, nail fold, and nail plate to separate the structures. A sterile nail splitter, and/or sterile 316 blade, was then used to longitudinally section the nail along its entire length through the eponychium to the area under the nail fold. The offending portion of nail was from the nail bed with a rolling action and then removed with a hemostat. No underlying bone was identified. There was minimal bleeding as hemostasis was achieved through the temporary use of either a digital tourniquet or the aforementioned local with epinephrine. A bacitracin sterile dressing was applied. Local wound aftercare instructions were discussed and dispensed. The patient was informed of both conservative and future surgical procedures to prevent recurrence. Tylenol or Motrin was recommended for pain or discomfort - 40260,, CIRCULATION: Matricectomy deferred at this time due to compromised circulation risk Anesthesia , was accomplished T OPICALLY with Lidocaine Hydrochloride Jelly 2 percent Location , Medial nail border , TA Debride Nail 6-10 Nail debridement Due to the cl inical pathology outlined in the exam findings, performance of this nail treatment is medically necessary as its management by an unskilled/untrained nonprofessional would put this patients foot and overall health at risk. Therefore, debridement to affected nail(s), as described in exam ( T1, T2, T3, T4, T6, T7, T8, T9, ), was performed exclusively by the physician of record to reduce/remove overall nail length, girth, thickness, subungual debris, and necrotic tissue, by manual and/or electrical means through the use of a nail nipper and/or dremel-type ink grinder, to a more viable healthy nail [...] to maintain effectiveness in symptomatic relief - 50885 Keratoma Treatment Parring or Cutting o f Benign Hyperkeratotic Lesion(s) (-56) 2-4 Lesions - Due to the at risk nature of the patients medical condition as documented in the exam findings, performance of this keratoderma treatment is medically necessary as its management by an unskilled/untrained nonprofessional would put this patients foot and overall health at risk. Therefore, the benign hyperkeratotic lesions, (2) in total, locations as stated and described in the exam ( TA,T5_ ), were pared, and/or cut utilizing a sterile 15 blade, tissue nippers, and/or power dremel instrumentation by the physician of record - 43873, Q8 Progress Notes * Dixie AGUILARB: [birth year] (79 yo F)Acc No.[id number]:12/28/2024 Progress Note Patient: Jeanette WILDER Provider: Renata Don DPM :1945 A ge:79 Y S ex:Female Date:12/28/2024 Address:[address] [place] [address] Pcp:Aurea Davalos Subjective: * Chief Complaints: * A t Risk FootcarePainful nail(s) aggrevated by shoes causing difficulty standing/walkingHeel painIngrown Nail * HPI: A t Risk footcare: Pt States Last PCP Visit: D ate 0 08/19/2024 P ainful Nails: Pt States Last PCP Visit: D ate: 0 08/19/2024 H eel pain: Location: P roximal plantar aspect of Heel, RIGHT. Duration: , several months. Course: w rocio. Aggravated: s tanding, walking, walking first thing in the morning/after rest. Treatments: r est/alter normal daily activity. * ROS: G eneral/Constitutional: Nausea d enies. V omiting d enies. H gee Thirst d enies. L oss appetite d enies. C hills d enies. F atigue d enies.?Fever d enies. N ight Sweats d enies. U nexplained weight loss d enies. U nexplained weight gain d enies. H EENTM: Dentures a dmits. D izziness d enies. G lasses/contacts a dmits. R etinopathy d enies. B lurred/double vision d enies. T MJ?denies. D ischarge/drainage d enies. I mplants d enies. S ore throat d enies. D ental implants d enies. H kong of hearing d enies. D ifficulty chewing/swallowing/speaking d enies. N ose bleeds d enies. S ore mouth d enies. ? R espiratory: On Oxygen d enies. P neumonia/pleurisy d enies.?Bronchitis d enies. E mphysema d enies. C oughing d enies. C ough blood?denies. S hortness of breath d enies. W heezing d enies. C ardiovascular: Pacemaker d enies. M SWITCH BOX INSTALLER d enies. W PW d enies. C HF d enies. H eart attack d enies. S eptal defect d enies. R apid beat d enies. C hest pain d enies. A trial Fib. d enies. M urmur/Palpitations d enies. G astrointestinal: Hemorrhoids d enies. S tomach/Abdominal pain d enies. D ark blood stool d enies. I rritable bowel d enies. C onstipation d enies. D iarrhea d enies. H ematology: Swelling a dmits. C lots d enies. V aricose Veins d enies. B ruising d enies. B leeding problem d enies. G enitourinary: Blood urine d enies. F requent/Painfu/urination/bladder control d enies. K idney stones d enies. I nfection (UTI) d enies. N ephropathy d enies. s ex trans dis (STD) d enies. P rostate d enies. M usculoskeletal: Hammertoes d enies. B unions d enies. B ack Pain d enies. M uscle Cramps/ Resting d enies. M uscle cramps / walking d enies.?Generalized aches and pains admits. W eakness d enies. I nteg.: Escalante d enies. S cars d enies. C orns/calluses?, admits. I ngrown nails a dmits. P ainful nails a dmits. O pen Sores d enies. R ashes d enies. N eurologic: Difficulty sleeping d enies. B rain disorder d enies. N umbness d enies. B alance trouble d enies. C onfusion d enies. F ainting/blackouts d enies. T ingling d enies. T remors d enies. 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 F ather: , diagnosed with Unspecified heart disease. C hildren: prostate cancer, diagnosed with Other malignant neoplasm of unspecified site, Unspecified essential hypertension. S iblings: diagnosed with Other malignant neoplasm of unspecified site, Unspecified nonpsychotic mental disorder following organic brain damage, Unspecified essential hypertension. * Social History: T obacco Use: T obacco use other than smoking A re you an other tobacco user? N o Tobacco Control (Standard) T obacco use: N onsmoker A dditional Findings: Tobacco non-user C urrent nonsmoker D rugs/Alcohol: D rugs H ave you used drugs other than those for medical reasons in the past 12 months? N o Alcohol Screen D id you have a drink containing alcohol in the past year? N o P oints 0 I nterpretation N egative M iscellaneous: C affeine: yes, Soda 1-2 a week. Children: yes, 5. Exercise: no. Marital status: . Occupation: Retired. D rug/Alcohol: A MICHAEL-C (Standard) D id you have a drink containing alcohol in the past year? N o P oints 0 I nterpretation N egative * Medications: T akingamLODIPine Besylate 2.5 MG Tablet 1 tablet Orally [...] reviewed and reconciled with the patient * Allergies: A moxicillinAdvilMorphineCodeinePercocet: shortness of breathyes[Allergies Verified] Objective: * Vitals: H t: 5ft, Wt:144, BMI: 28.12, Shoe size:7-8, BP:136/60mm Hg, Ht-cm: 152.4 cm, Wt- k.32 kg. * Examination: G eneral Examination: GENERAL APPEARANCE: R eveals a pleasant, alert, well nourished, well-developed, well hydrated individual, who demonstrates proper attention to hygiene/body habitus, and is in no acute distress, Pt serves as own historian for office visit today, Pt accompanied by, Daughter, who serves as, additional Historian, and is physically present in exam room at time of visit. ORIENTED: p erson, place, and time. N eurological: TINEL'S COMPRESSION: N egative tarsal tunnel, ralph pedis, and medial calcaneal nerves. O rthopedic: GAIT ABNORMALITY: a ntalgic. FOOT MORPHOLOGY: Pes Planus structure, Decreased Ankle joint dorsiflexion ROM, knee extended. FOOTWEAR EVALUATION: s hoe gear properties exacerbate patients foot/toe deformity. H eel Pain: INSPECTION: Pain on Palpation to Plantar Fascia med. and central bands, intrinsic musc., infra-calcaneal bursa, and med calc tubercle , RIGHT foot, No pain: posterior/superior heel, achilles bursa/tendon, sinus tarsi, peroneals, or with lateral heel compression; no limited STJ ROM, calor, or ecchymosis,RIGHT foot. V ascular: DP PULSES (B): , 0/4, RIGHT,, 2/4, LEFT. PT PULSES (B): , 0/4, RIGHT, 1/4, LEFT. CAPILLARY FILL TIME: i mmediate, all digits, B/L. TROPHIC CONDITION-TEXTURE/ELASTICITY/TURGOR/HAIR GROWTH (B):?normal, B/L. TEMPERTURE GRADIENT (C): n ormal, warm to cool, proximal to distal, left , right warm to touch. PIGMENTATION: n ormal, B/L. EDEMA (C): 3 /4, non-pitting, Right, 1/4, Left. KIRSTY'S SIGN: , present, Right. PALPABLE CORDS: a bsent, B/L. D ermatologic: SKIN FINDINGS: S kin exam reveals normal color, texture, elasticity, and turgor. There are no masses, nor excrescences. The interspaces are clear, B/L, Skin exam reveals Keratotic lesion(s) located at, TA, T5. N ails: NAILS are: E longated, overgrown, dystrophic, lytic, greater than 3mm thick, discolored and friable with crumbly malodorous subungual debris, with pain on palpation T1, T2, T3, T4, T6, T7, T8, T9. I ngrown Nail: INSPECTION: R eveals nail incurvation, pain on palpation, groove hypertrophy , Medial nail border, TA. Assessment: * Assessment: 1. T inea unguium - B35.1 2 . P ain in right toe(s) - M79.674 ?3. P ain in left toe(s) - M79.675 4 . P ain in right foot - M79.671 5 . A therosclerosis of [place] artery of both lower extremities, with unspecified presence of clinical manifestation - I70.203 (Primary) N otes :Q7(A), Q8(2B), Q9(1B,2C) 6 . P lantar fasciitis of right foot - M72.2 S pecify :Acute problem, Complicated w/ Multiple Tx Options(4), Dx New problem, Prognosis Uncertain (4) 7 . I nterstitial myositis of right foot - M60.171 8 . B ursitis of right foot - M77.51 9 . I ngrown nail - L60.0 S pecify :medial TA Plan: * Treatment: 2. T inea unguium P rocedure: 63484-BUNUDPU NAIL, 6 OR MORE 3. P lantar fasciitis of right foot Start Night Splint AFO - L1930, 1, wear, at rest, 30 days, 1, Refills 0. Notes: Patient Educated with: HEEL CORD STRETCHES.pdf (HEEL CORD STRETCHES.pdf) Patient Educated with: RICE THERAPY.pdf (RICE THERAPY.pdf) 4. I ngrown nail P rocedure: 99833-Zvedeejw Plate * Procedures: D ebride Nail 6-10: Nail debridement D ue to the clinical pathology outlined in the exam findings, performance of this nail treatment is medically necessary as its management by an unskilled/untrained nonprofessional would put this patients foot and overall health at risk. Therefore, debridement to affected nail(s), as described in exam ( T1, T2, T3, T4, T6, T7, T8, T9, ), was performed exclusively by the physician of record to reduce/remove overall nail length, girth, thickness, subungual debris, and necrotic tissue, by manual and/or electrical means through the use of a nail nipper and/or dremel-type ink grinder, to a more viable healthy nail [...] to maintain effectiveness in symptomatic relief - 58534. K eratoma Treatment: Parring or Cutting of Benign Hyperkeratotic Lesion(s) ( -56) 2-4 Lesions - Due to the at risk nature of the patients medical condition as documented in the exam findings, performance of this keratoderma treatment is medically necessary as its management by an unskilled/untrained nonprofessional would put this patients foot and overall health at risk. Therefore, the benign hyperkeratotic lesions, (2) in total, locations as stated and described in the exam ( TA,T5_ ), were pared, and/or cut utilizing a sterile 15 blade, tissue nippers, and/or power dremel instrumentation by the physician of record - 46266, Q8. N ail Avulsion: Location , Medial nail border, TA. Anesthesia , was accomplished TOPICALLY with Lidocaine Hydrochloride Jelly 2 percent. Procedure A fine sterile elevator was placed between the eponychium, nail fold, and nail plate to separate the structures. A sterile nail splitter, and/or sterile 316 blade, was then used to longitudinally section the nail along its entire length through the eponychium to the area under the nail fold. The offending portion of nail was from the nail bed with a rolling action and then removed with a hemostat. No underlying bone was identified. There was minimal bleeding as hemostasis was achieved through the temporary use of either a digital tourniquet or the aforementioned local with epinephrine. A bacitracin sterile dressing was applied. Local wound aftercare instructions were discussed and dispensed. The patient was informed of both conservative and future surgical procedures to prevent recurrence. Tylenol or Motrin was recommended for pain or discomfort - 12553,, CIRCULATION: Matricectomy deferred at this time due to compromised circulation risk. * Procedure Codes: 1 1721 DEBRIDE NAIL, 6 OR MORE, Modifiers: XS 43105 Avulsion Plate, [place]: [place] [address] TRIM SKIN LESIONS, 2 TO 4, Modifiers: Q8 * Preventive Medicine: Counseling: D iscussion: - 14: Office or other outpatient visit for the [...] have encouraged the patient to call the office. H eel pain: F ASCIITIS: I explained to the patient the possible etiologies of Plantar Fasciitis including foot type/shoegear/activity level/exercise routine and the risks/benefits of all the different treatment options for heel pain including: No treatment at all, Rest, Ice, NSAIDs(only if well tolerated after meals), New/supportive Shoegear, Strappings and Tapings, Stretching exercises, Deep Tissue Massage, Heel cups/cushions, Arch support/shoe inserts, Custom orthoses, Topical analgesics including Aspercream/Voltaren gel, Night splint AFO for am stiffness, Cortisone injection therapy, Cast boot with crutches/cane/or walker for assisted ambulation, Physical Therapy, EPAT/ESWT, Interfil injection therapy, as well as surgical Josephine/Endoscopic Fasciitomy surgical procedures if needed. Recommendations were made to limit barefoot walking, eliminate wearing nonsupportive shoegear (i.e. flip- flops or sandals, or a shoe with an easily bendable, foldable, or twistable sole) and wear shoegear with a good solid sole, a supportive arch, and plenty of room for an insert/orthotic if necessary. If wearing sandals was required by the patient, we recommended orthopedic sandals such as Orthoheel or Birkenstock even while in the home. If the patient wore heels in the past, we recommended they continue, but eliminate the use of flats. The advantages and disadvantages of each option were discussed and the patients questions re: types of shoegear, custom vs prefabricated inserts, activity level, PO vs Topical medications (and their respective potential complications/drug interactions/side effects), and consistency in home treatment regimens for optimal success were answered to their satisfaction. Literature detailing plantar fasciitis and the various treatment options were dispensed and reviewed, Stretching exercises for the patients injury/diagnosis were discussed and demonstrated, Handouts were also given, Recommended a Night Splint to be worn daily for a minimum of 2 hours. S teriod Injection: I explained that a steroid and local anesthetic injections are administered to relieve pain and inflammation and thereby meant to improve function. I explained the possible complications including but not limited to signs/symptoms of steroid flare, infection, bruising, atrophy, discoloration of skin, change/deviation in toe position, and that additional injections may be necessary, cortisone post- injection informative educational handout was dispensed to and reviewed with the patient, Pt defers injection today. * Follow Up: 3 Months * Images: * Sign off status: Completed true * Provider: Renata Don DPM Date: Generated for Yinka bruce/George/Franky on: 02:28 PM EDT History and Physical Notes * HPI (History of Present Illness) Category Sub-Category Detail Notes Category Not es Heel pain Duration: , several months Location: Proximal plantar asp ect of Heel, RIGHT Aggravated: standing, walking, w alking first thing in the morning/after rest Course: worse Treatments: rest/alter normal da vale activity Painful Nails Pt States Last PCP Visit: Date:: 08/19/2024 At Risk footcare Pt States Last PCP Visit: Date: 5 Examination Category Sub-Category Detail Notes Category Not es Ingrown Nail INSPECTION: Reveals nail inc urvation, pain on palpation, groove hypertrophy , Medial nail border, TA Neurological TINEL'S COMPRESSION: Negative ta rsal tunnel, ralph pedis, and medial calcaneal nerves Dermatologic SKIN FINDINGS: Skin exam reveal s normal color, texture, elasticity, and turgor. There are no masses, nor excrescences. The interspaces are clear, B/L, Skin exam reveals Keratotic lesion(s) located at, TA, T5 Orthopedic GAIT ABNORMALITY: antalgic FOOT MORPHOLOGY: Pes Planus structure , Decreased Ankle joint dorsiflexion ROM, knee extended FOOTWEAR EVALUATION: shoe gear propertie s exacerbate patients foot/toe deformity General Examination GENERAL APPEARANCE: Reveals a pleasant, alert, well nourished, well-developed, well hydrated individual, who demonstrates proper attention to hygiene/body habitus, and is in no acute distress, Pt serves as own historian for office visit today, Pt accompanied by, Daughter, who serves as, additional Historian, and is physically present in exam room at time of visit ORIENTED: person, place, and t katherin Vascular DP PULSES (B): , 0/4, RIGHT,, 2/4, LEFT PT PULSES (B): , 0/4, [...] malodorous subungual debris, with pain on palpation T1, T2, T3, T4, T6, T7, T8, T9 Heel Pain INSPECTION: Pain on Palpatio n to Plantar Fascia med. and central bands, intrinsic musc., infra-calcaneal bursa, and med calc tubercle , RIGHT foot, No pain: posterior/superior heel, achilles bursa/tendon, sinus tarsi, peroneals, or with lateral heel compression; no limited STJ ROM, calor, or ecchymosis,RIGHT foot
--- NOTE | ~2025-01-01 | US_ITS ---
EXAMINATION: BILATERAL CAROTID ULTRASOUND WITH DOPPLER HISTORY: I65.23 - Occlusion and stenosis of bilateral carotid arteries COMPARISON: Comparison is made with the prior examination dated 12/04/2023. TECHNIQUE: Real time and Color and Spectral doppler ultrasonography of the carotid and vertebral arteries was performed in multiple planes. FINDINGS: A small amount of plaque is seen in the internal carotid arteries. An occasional arrhythmia is noted during the study. VERTEBRAL FLOW DIRECTION: Antegrade bilaterally. PEAK SYSTOLIC VELOCITIES (in cm/sec): RIGHT: CCA: Prox: 158 Dist: 88.4 ICA: Prox: 99.0 Mid: 81.5 Dist: 70.9 ICA/CCA Ratio: 0.63 ECA: 159 Peak ICA end diastolic velocity (EDV): 18.2 LEFT: CCA: Prox: 86.8 Dist: 63.9 ICA: Prox: 256 Mid: 159 Dist: 140 ICA/CCA Ratio: 2.9 ECA: 258 Peak ICA end diastolic velocity (EDV): 42.4 US/US carotid duplex BI IMPRESSION: Findings consistent with 0-49% stenosis of the right internal carotid artery, and 50-79% stenosis of the left internal carotid artery. Electronically signed by: Jony Taylor MD 01/01/2025 02:06 PM EDT
--- OUTSIDE RECORDS SUMMARY | 2025-01-01 14:28 | XMS_ITS | Patient Health Record ---
Author Organization [facility] Address [address] [facility] [place] [address] Care Team Providers Care Certified Respiratory Therapist Name Role Phone Aurea Davalos Primary Care Provider Marisabel Chaudhary Unavailable [phone] Allergies Allergen (clinical drug ingredient) Drug/Non Drug [...] wear at rest; Duration: 30 days Active Vitamin D3 25 MCG (1000 UT) 1 tablet Orally Once a day; Duration: 30 day(s) Active Atorvastatin Calcium 40 MG 1 tablet Oral ly Once a day; Duration: 30 day(s) Active Aspirin Adult Low Dose 81 MG 1 tablet Orally Once a day; Duration: 30 day(s) Active amLODIPine Besylate 2.5 MG as directed O raina Once a day Not-Taking amLODIPine Besylate 2.5 MG 1 tablet Oral ly Once a day; Duration: 30 day(s) Active Aspirin Not-Taking Atorvastatin Calcium 40 MG as directed O rally Once a day Not-Taking Vitamin D3 Not-Takin g Ropinirole Hydrochloride Not-Taking Immunizations Vaccine Route Administration Date Status [...] Notes Problem Plantar fasciitis of right foot (92596358915195186 ) Plantar fasciitis of right foot (M72.2) Active confirmed Problem Bilateral atherosclerosis of arteries of lower limbs (disorder) (09033923006724377 ) Atherosclerosis of [place] artery of both lower extremities, with unspecified presence of clinical manifestation (I70.203) Active confirmed Q7(A), Q8(2B), Q9(1B,2 C) Problem Interstitial myositis (32433769) Interstitial myositis of right foot (M60.171) Active confirmed Vital Signs Blood pressure diastolic 60 mm Hg 12/28/2024 Height 5ft in 12/28/2024 Blood pressure systolic 136 mm Hg 12/28/2024 Weight 144 lbs 12/28/2024 BMI 28.12 kg/m2 12/28/2024 Procedures Procedure Date Ordered Date Performed Result Body Sit e 76320-YUGJMLZ NAIL, 6 OR MORE 03/12/2024 N/A 08676-YWRLNHY NAIL, 6 OR MORE 06/11/2024 N/A 24367-VEEC SKIN LESIONS, 2 TO 4 06/11/2024 N/A 84699-ACPFBII NAIL, 6 OR MORE 09/21/2024 N/A 83161-NFQA SKIN LESIONS, 2 TO 4 09/21/2024 N/A 00219-RPVBMHU NAIL, 6 OR MORE 12/28/2024 N/A 72976-Twbcdxuu Plate 12/28/2024 N/A 04537-NMNR SKIN LESIONS, 2 TO 4 12/28/2024 N/A Encounters Encounter Location Date Provider Diagnosis [address] [address] 03/12/2024 Marisabel Black Tinea unguium B35.1 ; Acute deep vein thrombosis (DVT) of calf muscle vein of right lower extremity I82.461 ; Pain in right toe(s) M79.674 ; Pain in left toe(s) M79.675 and Edema, lower extremity R60.[address] [address] 06/11/2024 Marisabel Black Tinea unguium B35.1 ; Pain in right toe(s) M79.674 ; Pain in left toe(s) M79.675 and Atherosclerosis of [place] artery of both lower extremities, with unspecified presence of clinical manifestation I70.[address] [address] 09/21/2024 Marisabel Black Tinea unguium B35.1 ; Pain in right toe(s) M79.674 ; Pain in left toe(s) M79.675 and Atherosclerosis of [place] artery of both lower extremities, with unspecified presence of clinical manifestation I70.[address] [address] 12/28/2024 Marisabel Black Tinea unguium B35.1 ; Pain in right toe(s) M79.674 ; Pain in left toe(s) M79.675 ; Atherosclerosis of [place] artery of both lower extremities, with unspecified presence of clinical manifestation I70.203 ; Pain in right foot M79.671 ; Plantar fasciitis of right foot M72.2 ; 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 ; Bursitis of right foot M77.51 and Ingrown nail L60.[address] [address] 03/12/2024 Marisabel Black [address] [address] 12/28/2024 Marisabel Don Assessments Encounter Date Diagnosis (ICD Code) Assessment Notes Treatment Notes Treatment Clinical Notes Section Notes 03/12/2024 Tinea unguium (ICD-10 - B35.1) 03/12/2024 Acute deep vein thrombosis (DVT) of calf muscle vein of right lower extremity (ICD-10 - I82.461) 06/11/2024 Tinea unguium (ICD-10 - B35.1) 09/21/2024 Tinea unguium (ICD-10 - B35.1) 12/28/2024 Tinea unguium (ICD-10 - B35.1) 12/28/2024 Pain in right toe(s) (ICD-10 - M79.674) 09/21/2024 Pain in right toe(s) (ICD-10 - M79.674) 06/11/2024 Pain in right toe(s) (ICD-10 - M79.674) 03/12/2024 Pain in right toe(s) (ICD-10 - M79.674) 06/11/2024 Pain in left toe(s) (ICD-10 - M79.675) 03/12/2024 Pain in left toe(s) (ICD-10 - M79.675) 09/21/2024 Pain in left toe(s) (ICD-10 - M79.675) 12/28/2024 Pain in left toe(s) (ICD-10 - M79.675) 12/28/2024 Pain in right foot (ICD-10 - M79.671) 09/21/2024 Atherosclerosis of [place] artery of both lower extremities, with unspecified presence of clinical manifestation (ICD-10 - I70.203) Q7(A), Q8(2B), Q9(1B,2C) 03/12/2024 Edema, lower extremity (ICD-10 - R60.0) 06/11/2024 Atherosclerosis of [place] artery of both lower extremities, with unspecified presence of clinical manifestation (ICD-10 - I70.203) Q7(A), Q8(2B), Q9(1B,2C) 12/28/2024 Atherosclerosis of [place] artery of both lower extremities, with unspecified presence of clinical manifestation (ICD-10 - I70.203) Q7(A), Q8(2B), Q9(1B,2C) 12/28/2024 Plantar fasciitis of right foot (ICD-10 [...] 06/24/2023 Ultrasound : Lower Extremity, right 11/2024 78193-NXHBFZB NAIL, 6 OR MORE 11/21/2023 02081-PRZNJVR NAIL, 6 OR MORE 03/12/2024 15936-UPHUQYP NAIL, 6 OR MORE 06/11/2024 48605-YVVJEYF NAIL, 6 OR MORE 09/21/2024 25380-NRLPGUA NAIL, 6 OR MORE 12/28/2024 74303-OVHBMHJ NAIL, 6 OR MORE 08/01/2023 31646-JSHCPZO NAIL, 1-5 12/24/2022 86228-UFFJPCR NAIL, 1-5 12/21/2021 26593-IYYGSSC NAIL, 1-5 04/02/2022 35253-NKJOGSJ NAIL, 1-5 06/25/2022 84536-XNZOQGZ NAIL, 1-5 09/24/2022 53615-HPUDLAI NAIL, 1-5 09/12/2020 55132-QXRWLYN NAIL, 1-5 12/22/2020 59218-IVRQZCE NAIL, -5 04/03/2021 83366-OMOEQXU NAIL, 1-5 06/12/2021 95752-NNRSFUS NAIL, -5 09/14/2021 62110-Nfqygzly Plate 12/21/2021 93699-Qimrsnyg Plate 06/12/2021 37432-Ldjlxdvo Plate 04/03/2021 99758-Stblpibz Plate 12/24/2022 08209-Ahbnydql Plate 06/25/2022 38620-Zimvybqs Plate 09/12/2020 17499-Swlgdfdn Plate 11/21/2023 45541-Iyqaqumy Plate 12/28/2024 80765-Equamcmg Plate Each Additional 06580 I&D ABSCESS- SIMPLE,SINGLE 022 95962-JTRW SKIN LESIONS, 2 TO 4 12/29/19 25 24046-SULA SKIN LESIONS, 2 TO 4 09/22/19 52514-INHI SKIN LESIONS, 2 TO 4 06/12/19 Next Appt Details Provider Name:Marisabel Don , 04/22/2025 02:15:00 PM, [address] [place], [address], Insurance Providers Payer Name Payer Address Payer Phone Subscriber Number Group Number Insured Name Patient Relationship to Insured Coverage Start Date Coverage End Date Medicare National Govt [facility] [address] [facility] [place] [address] [id number] Van tteJeanette Self - patient is the insured Medical [...]
== END 2025-01-01 13:25 | disposition home or self-care (01) ==
LOC: HO.HMGCX 13:24
PROVIDERS: PCP Internal Medicine; Visit Provider Surgery Vascular Surgery
DX: I65.23 Occlusion and stenosis of bilateral carotid arteries (principal)
CPT/HCPCS: 93880

== ENCOUNTER → 2025-01-01 13:26 | Outpatient (BNV) | payer MEDICARE, MEDICAID, SELFPAY | PROVIDERS: PCP Internal Medicine; Visit Provider Radiology Diagnostic Radiology | DX: I65.23 Occlusion and stenosis of bilateral carotid arteries (principal) | CPT/HCPCS: 93880 ==

== ENCOUNTER 2025-01-26 13:57 | Outpatient (AMB) | payer MEDICARE, MEDICAID, SELFPAY ==
--- OUTSIDE RECORDS SUMMARY | 2025-01-22 14:00 | XMS_ITS | Encounter Summary ---
Author Organization [facility] Address [address] [place] [address] Care Team Providers Care Rn Field Name Role Phone Jaquan Knott MD Primary Care Provider [phone] Reason for Visit * Therapy (Routine) - Authorized Specialty Diagnoses / Procedures Referred By Sonia marcial Referred To Contact Occupational Therapy Diagnoses Contracture of muscle, right shoulder Zoe Brennan, DO [address] [place] [address] Phone: tel: fax: [facility] Occupational Therapy [address] [place] [phone] Phone: tel: fax: Referral ID Status Reason Start Date Expiration Date Visits Requested Visits Authorized [id number] Authorized Consult and Treat 11/10/2024 11/10/2025 1 12 Encounter Details Date Type Department Care Team (Late st Contact Info) Description 01/22/2025 2:00 PM EST Treatment [facility] Occupational Therapy [address] [place] [phone] Tamar Zambrano, LESLIE/L Contracture of muscle, right shoulder (Primary Dx) Social History Tobacco Use Types Packs/Day Years Used Date Smoking Tobacco: Never Assessed Comments Unknown Sex and Gender Information Value Date Recorded Sex Assigned at Female 12/29/2024 8:37 AM EDT Legal Sex Female 1:08 AM EST Gender Identity Female 12/29/2024 8:37 AM EDT Sexual Orientation Straight 12/29/2024 8: 37 AM EDT documented as of this encounter Progress Notes * KEITH Chua - 01/22/2025 2:00 PM EST [facility] - Outpatient OCCUPATIONAL THERAPY DAILY TREATMENT NOTE Date: 01/22/2025 Visit Number: 2 Patient Name: Jeanette Aguilar : 1945 Age: 79 y.o. Gender: female Diagnosis: ICD-10-CM ICD-9-CM 1. Contracture of muscle, right shoulder M62.411 728.85 Date of Onset: 11/10/2024 Referring Provider: Zoe Brennan DO Insurance: Payor: MEDICARE / Plan: MEDICARE PART A & B / Product Type: Medicare / Medications: Medications Ordered Prior to Encounter[1] Allergies: has no allergies on file. Precautions: None specified SUBJECTIVE Subjective Report: my arm is just so tight Chart Reviewed: Yes Pain: No pain OBJECTIVE Pt arrived with dtr, dtr provided hand held assist for mobility TREATMENT INTERVENTION Procedures: Therex- PROM performed to RUE for joint protection -gentle massage performed to shoulder for decreased trigger points/constriction of muscle - while therapist supported at elbow/wrist patient performed shoulder elevation and retraction for increased shoulder movements. -educated patient on supporting the RUE while she is sitting on the couch for decreased shoulder pulling/pain Pain Reassessment: no pain Assessment/Response To Treatment: Good Patient/daughter demonstrating good understanding of education provided for supporting arm. Patient Education: Education provided: Yes Education Provided To: Patient utilizing Explanation mode(s) of education Response to Education: Good PLAN POC Development/Review: No Change in the Plan of Care; Participants: Patient Equipment Recommended: none; Equipment Provided: none Total Treatment Time: 45 TOTAL TREATMENT TIME: 45 Minutes Documentation completed by KEITH Chua [1] No current outpatient medications on file prior to visit. No current facility-administered medications on file prior to visit. documented in this encounter Plan of Treatment Upcoming Encounters Date Type Department Care Team (Late st Contact Info) Description 01/27/2025 2:00 PM EST Treatment [facility] Occupational Therapy [address] [place] [phone] Jaylon Denton, OT 02/03/2025 2:00 PM EST Treatment [facility] [address] [address] WayTamar hoover, LESLIE/L 02/05/2025 2:00 PM EST Treatment [facility] [address] [address] WayMary hooverna, LESLIE/L 02/10/2025 2:00 PM EST Treatment [facility] [address] [address] Jaylon Denton, OT 02/12/2025 2:00 PM EST Treatment [facility] [address] [address] Mary Zambranogarrison, LESLIE/L 02/16/2025 2:00 PM EST Evaluation [facility] [address] [phone] Jaylon Denton, OT documented as of this encounter Goals Goal Patient Goal Type Associated Problems Recent Progress Patient-Stated? Author Pt goals General Yes Jaylon Denton, OT Note: To be able to lift my arm up like I used to LTG 7 visits General No Jaylon Denton, OT Note: Pt will demo R sh flex, abd AROM >= 20* for increased ease of axillary care Pt will participate in [facility] behavioral health re-ed to be able ot use R UE as a stabilizer for ADLs Pt will perform HEP MOD I or with A from caregiver documented as of this encounter Visit Diagnoses Diagnosis Contracture of muscle, right shoulder- Primary documented in this encounter Care Teams Rn Field Relationship Specialty Start Date End Date Jaquan Knott MD [address] [place] [address] Dr Boyer Allie HAN Lu PCP - General [employer] 09/12/15 documented as of this encounter
--- NOTE | 2025-01-26 14:15 | A.OFFVIS_ITS ---
Intake Visit Reasons: 1 yr follow up Carotid US 01/01/25 Intake Note: Patient presents for 1 year follow up carotid US, performed on 01/01/25. No complaints. Accompanied by: Daughter Allergies ibuprofen (From ADVIL) Allergy (Severe, Verified 01/26/25 14:18) DUE TO CVA-BLEED tramadol (TRAMADOL) Allergy (Severe, Verified 01/26/25 14:18) UNKNOWN amoxicillin (AMOXICILLIN) Allergy (Mild, Verified 01/26/25 14:18) RASH Penicillins (PENICILLINS) Allergy (Mild, Verified 01/26/25 14:18) RASH oxycodone (Percocet) Allergy (Unknown, Verified 01/26/25 14:18) Difficulty Breathing From PERCOCET Allergy (Severe, Uncoded 12/24/23 13:03) DIFFICULTY BREATHING, INCREASED HEART RATE From ALEVE Adverse Reaction (Severe, Uncoded 12/24/23 13:03) DUE TO CVA-BLEED HPI HPI 1 yr follow up Carotid US 01/01/25: Details: The patient is a 79 year old individual presenting for evaluation and annual surveillance of carotid disease. The patient has a history of a right carotid endarterectomy performed on January 27, 2018. A carotid ultrasound performed on January 01 demonstrated 0-49% stenosis on the right side and 50-79% stenosis on the left side with a peak systolic velocity of 256. The patient is currently taking a baby aspirin and a cholesterol medication. [facility] Medical History Mixed irritable bowel syndrome Lactose intolerance Parathyroid adenoma Cervical vertebral fusion Stroke Surgical History History of cataract surgery History of carpal tunnel release Hx of thyroidectomy H/O toe surgery History of CEA (carotid endarterectomy) H/O: hysterectomy Family History Mother Heart disease Diabetes Father Heart disease Daughter Breast cancer HTN (hypertension) Daughter HTN (hypertension) Hearing loss Sister Pancreatic cancer Sister Stroke Brother Prostate cancer Social History Housing: House Alcohol intake: never Patient Tobacco Use Status: Never used Tobacco e-Cigarette/Vaping Use: Never Used service: No Current occupational status: retired Cognitive needs: Yes (wheelchair) Hearing needs: No Vision needs: Yes (reading glasses) Review of Systems Const All systems reviewed & are unremarkable except as noted in HPI and below Reports no additional complaints ENT Reports Normal hearing present Card Denies chest pain, Denies chest pain at rest, Denies chest pain with activity and Denies pedal edema Resp Denies cough GI Denies abdominal pain Musc Denies abnormal gait, Denies muscle cramps and Denies radiating pain into limb Skin/Breast Denies skin ulcer and Denies wounds Neuro Reports Normal hearing present and Denies abnormal gait Psych Reports no additional complaints Physical Exam Const General: cooperative, healthy appearing and comfortable Orientation/consciousness: oriented to person, oriented to place and oriented to time HEENT Head: Yes normal to inspection Neck Neck: Yes normal visual inspection Carotids: no bruits Chest Chest palpation & inspection: normal inspection of the chest Resp Effort & Inspection: normal respiratory effort and able to speak in complete sentences Auscultation: clear to auscultation bilaterally, no crackles, no rales, no rhonchi and no wheezes Cardio Rate: regular rate Rhythm: regular rhythm Heart sounds: S1 normal heart sound present and S2 normal heart sound present Bruits: no carotid bruits Peripheral pulses: Peripheral pulses 2+ throughout GI Inspection: Yes normal to inspection Skin Wounds: no wounds Hair: normal Neuro General: oriented to person, oriented to place and oriented to time Cranial nerves: Yes CN's II-XII intact bilaterally and Yes Normal hearing present Cognition (Neuro): normal cognition Motor exam (neuro): 5/5 motor strength present throughout Extrem Other: venous exam: No significant superficial varicosities or spider telangiectasias, minimal edema General: No clubbing, No cyanosis and No edema Psych Appearance: grossly normal Mental Status: mental status grossly normal Speech and movement: Normal speech and movement present Results Reviewed Results Reviewed: Carotid ultrasound testing dated 01/01/2025 demonstrates right-sided 0-49 left side 50-79 with peak systolic of 256. Assessment & Plan Assessment & Plan (1) Carotid stenosis: Comment: Right carotid endarterectomy 01/27/2018 Code(s): I65.29 - Occlusion and stenosis of unspecified carotid artery Category: Medical Qualifiers: Laterality: bilateral Qualified Code(s): I65.23 - Occlusion and stenosis of bilateral carotid arteries Plan: I reviewed the patient's recent carotid ultrasound from January 01. I explained that the right side, which was operated on, remains clean, but the left side now has a stenosis of 50-79%. At the current time no intervention is indicated. We discussed that while it is not possible to reduce the existing plaque, its progression can be prevented. I advised a healthy lifestyle, including a low- fat, low-cholesterol diet and staying active. I informed the patient that a follow-up visit with a repeat carotid ultrasound is scheduled for one year. Thank you for allowing us to assist in her care. Orders: Orders US carotid duplex BI 1 Year I65.23 - Occlusion and stenosis of bilateral carotid arteries Coding Level of Care Code Est Pt Level 4 (93304) Diagnoses Bilateral carotid artery stenosis I65.23 Laterality: bilateral
--- OUTSIDE RECORDS SUMMARY | 2025-01-26 17:56 | XMS_ITS | Patient Health Record ---
Author Organization [facility] Address [address] [facility] [place] [address] Care Team Providers Care Home Manager Name Role Phone Aurea Davalos Primary Care Provider Marisabel Chaudhary Unavailable [phone] Allergies Allergen (clinical drug ingredient) Drug/Non Drug [...] 20-30mm Hg . . .; Duration: . Not-Taktomer g Physical Therapy . . . 2-3x/week; [...] Notes Problem Plantar fasciitis of right foot (89088992593822574 ) Plantar fasciitis of right foot (M72.2) Active confirmed Problem Bilateral atherosclerosis of arteries of lower limbs (disorder) (68310799808807715 ) Atherosclerosis of hoh artery of both lower extremities, with unspecified presence of clinical manifestation (I70.203) Active confirmed Q7(A), Q8(2B), Q9(1B,2 C) Problem Interstitial myositis (78391932) Interstitial myositis of right foot (M60.171) Active confirmed Vital Signs Blood pressure diastolic 60 mm Hg 12/28/2024 Height 5ft in 12/28/2024 Blood pressure systolic 136 mm Hg 12/28/2024 Weight 144 lbs 12/28/2024 BMI 28.12 kg/m2 12/28/2024 Procedures Procedure Date Ordered Date Performed Result Body Sit e 30764-JQICNTH NAIL, 6 OR MORE 03/12/2024 N/A 69360-VRVVVVU NAIL, 6 OR MORE 06/11/2024 N/A 30031-MPUZ SKIN LESIONS, 2 TO 4 06/11/2024 N/A 60784-UZYXELD NAIL, 6 OR MORE 09/21/2024 N/A 66728-IIFR SKIN LESIONS, 2 TO 4 09/21/2024 N/A 69363-GNJIRJQ NAIL, 6 OR MORE 12/28/2024 N/A 26286-Elhnreal Plate 12/28/2024 N/A 33317-EGPH SKIN LESIONS, 2 TO 4 12/28/2024 N/A Encounters Encounter Location Date Provider Diagnosis [address] [address] 03/12/2024 Marisabel Black Tinea unguium B35.1 ; Acute deep vein thrombosis (DVT) of calf muscle vein of right lower extremity I82.461 ; Pain in right toe(s) M79.674 ; Pain in left toe(s) M79.675 and Edema, lower extremity R60.[address] [address] 06/11/2024 Marisabel Black Tinea unguium B35.1 ; Pain in right toe(s) M79.674 ; Pain in left toe(s) M79.675 and Atherosclerosis of hoh artery of both lower extremities, with unspecified presence of clinical manifestation I70.[address] [address] 09/21/2024 Marisabel Black Tinea unguium B35.1 ; Pain in right toe(s) M79.674 ; Pain in left toe(s) M79.675 and Atherosclerosis of hoh artery of both lower extremities, with unspecified presence of clinical manifestation I70.[address] [address] 12/28/2024 Marisabel Black Tinea unguium B35.1 ; Pain in right toe(s) M79.674 ; Pain in left toe(s) M79.675 ; Atherosclerosis of hoh artery of both lower extremities, with unspecified presence of clinical manifestation I70.203 ; Pain in right foot M79.671 ; Plantar fasciitis of right foot M72.2 ; 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 ; Bursitis of right foot M77.51 and Ingrown nail L60.[address] [address] 03/12/2024 Marisabel Black [address] [address] 12/28/2024 Marisabel Don Assessments Encounter Date Diagnosis [...] foot (ICD-10 - M79.671) 09/21/2024 Atherosclerosis of hoh artery of both lower extremities, with unspecified presence of clinical manifestation (ICD-10 - I70.203) Q7(A), Q8(2B), Q9(1B,2C) 03/12/2024 Edema, lower extremity (ICD-10 - R60.0) 06/11/2024 Atherosclerosis of hoh artery of both lower extremities, with unspecified presence of clinical manifestation (ICD-10 - I70.203) Q7(A), Q8(2B), Q9(1B,2C) 12/28/2024 Atherosclerosis of hoh artery of both lower extremities, with unspecified [...] 06/24/2023 Ultrasound : Lower Extremity, right 11/2024 63212-XRTQQOE NAIL, 6 OR MORE 11/21/2023 27232-TCFXADK NAIL, 6 OR MORE 03/12/2024 49742-AXHSCLV NAIL, 6 OR MORE 06/11/2024 85205-DWCGKHI NAIL, 6 OR MORE 09/21/2024 75380-SRLGWZT NAIL, 6 OR MORE 12/28/2024 79226-KMBCWMU NAIL, 6 OR MORE 08/01/2023 72811-HOPZPFO NAIL, 1-5 12/24/2022 44043-MAKXXJS NAIL, 1-5 12/21/2021 98273-JSTZZDM NAIL, 1-5 04/02/2022 81961-FSAECJH NAIL, 1-5 06/25/2022 72734-VCCMSRE NAIL, 1-5 09/24/2022 62479-QKKOXOL NAIL, 1-5 09/12/2020 85531-BHYRIZZ NAIL, 1-5 12/22/2020 60540-VYDXLGS NAIL, -5 04/03/2021 86299-OEEACQK NAIL, 1-5 06/12/2021 94694-UODASWE NAIL, -5 09/14/2021 32922-Cbtfbdju Plate 12/21/2021 05564-Rjwadjdj Plate 06/12/2021 52982-Qbijjqbv Plate 04/03/2021 75583-Isstdoit Plate 12/24/2022 07563-Kiwbmelv Plate 06/25/2022 13756-Dqukiekp Plate 09/12/2020 62040-Qtulorqg Plate 11/21/2023 39784-Qhdjwndb Plate 12/28/2024 60820-Uqhsgieo Plate Each Additional 84993 I&D ABSCESS- SIMPLE,SINGLE 022 31290-LXPM SKIN LESIONS, 2 TO 4 12/29/19 25 01166-BCFC SKIN LESIONS, 2 TO 4 09/22/19 65199-IADT SKIN LESIONS, 2 TO 4 06/12/19 Next Appt Details Provider Name:Marisabel Don , 04/22/2025 02:15:00 PM, [address] [place], [address], Insurance Providers Payer Name Payer Address Payer Phone Subscriber Number Group Number Insured Name Patient Relationship to Insured Coverage Start Date Coverage End Date Medicare National Govt [facility] [address] [facility] [place] [address] [id number] Van tteJeanette Self - patient is the [...]
--- OUTSIDE RECORDS SUMMARY | 2025-01-26 17:56 | XMS_ITS | Clinical Summary ---
Author Organization 175 [facility] Address [address] [place] [address] Phone Care Team Providers Care Home Care Giver Name Role Phone Jaquan Knott MD Primary Care Provider [phone] Encounters Date Type Department Care Team Description 01/22/2025 2:00 PM EST Treatment [facility] [address] [phone] Tamar Zambrano COTA/Olvin Contracture of muscle, right shoulder (Primary Dx) 01/06/2025 2:30 PM EST Evaluation [facility] [address] [place] [phone] Jaylon Denton, OT Contracture of muscle, right shoulder 01/06/2025 Plan of Care Documentation [facility] [address] [place] [phone] from Last 3 Months Social History Tobacco Use Types Packs/Day Years Used Date Smoking Tobacco: Never Assessed Comments Unknown Sex and Gender Information Value Date Recorded Sex Assigned at Female 12/29/2024 8:37 AM EDT Legal Sex Female 1:08 AM EST Gender Identity Female 12/29/2024 8:37 AM EDT Sexual Orientation Straight 12/29/2024 8: 37 AM EDT Plan of Treatment Upcoming Encounters Date Type Department Care Team (Late st Contact Info) Description 01/27/2025 2:00 PM EST Treatment [facility] [address] [place] [phone] Jaylon Denton, OT 02/03/2025 2:[address] [facility] [address] [phone] Tamar Zambrano, LESLIE/L 02/05/2025 2:[address] [facility] [address] [phone] WayTamar hoover, LESLIE/L 02/10/2025 2:[address] [facility] [address] [phone] Jaylon Denton, OT 02/12/2025 2:[address] [facility] [address] [phone] Tamar Zambrano, LESLIE/L 02/16/2025 2:00 PM EST Evaluation [facility] [address] [phone] Jaylon Denton, OT Health Maintenance Due Date Last Done Comments DTaP,Tdap,and Td Vaccines (1 - Tdap) 05/08/1966 Pneumococcal Vaccine: 50+ Ye ars (1 of 1 - PCV) 05/08/1997 Zoster Vaccines (1 of 2) 05/08/1997 RSV Immunization Adult Patie nts (1 - 1-dose 75+ series) 05/08/2022 Depression Screening 03/04/2024 COVID-19 Vaccine ( - 2024-2 6 season) 2024 Influenza Vaccine (#1) 2024 Falls Risk Assessment 11/10/2024 Hepatitis C Screening 11/10/2024 Medicare Annual Wellness Visit 11/10/2024 Osteoporosis Screening (Bone Density Screening) 11/10/2024 Social Influencers of Health Screening 11/10/2024 HIB Vaccines Aged Out No longer eligi ble based on patient's age to complete this topic HPV Vaccines Aged Out No longer eligi ble based on patient's age to complete this topic Hepatitis A Vaccines Aged Out No long er eligible based on patient's age to complete this topic Hepatitis B Vaccines Aged Out No long er eligible based on patient's age to complete this topic IPV Vaccines Aged Out No longer eligi ble based on patient's age to complete this topic MMR Vaccines Aged Out No longer eligi ble based on patient's age to complete this topic Meningococcal ACWY Vaccine Aged Out N o longer eligible based on patient's age to complete this topic Meningococcal B Vaccine Aged Out No l onger eligible based on patient's age to complete this topic RSV Immunization Patients Un jose a 20 months Aged Out No longer eligible b ased on patient's age to complete this topic Varicella Vaccines Aged Out No longer eligible based on patient's age to complete this topic Goals Goal Patient Goal Type Associated Problems Recent Progress Patient-Stated? Author Pt goals General Yes Jaylon Denton, OT Note: To be able to lift my arm up like I used to LTG 7 visits General No Jaylon Denton, OT Note: Pt will demo R sh flex, abd AROM >= 20* for increased ease of axillary care Pt will participate in [facility] re-ed to be able ot use R UE as a stabilizer for ADLs Pt will perform HEP MOD I or with A from caregiver Insurance MEDICARE MEDICAID - [place] Care Teams Home Care Giver Relationship Specialty Start Date End Date Jaquan Knott MD [address] [place] [address] Dr Jimmy [place] PCP - General Finish Off Operator 09/12/15
== END 2025-01-26 15:36 | disposition home or self-care (01) ==
LOC: HO.HVS 13:58
PROVIDERS: PCP Internal Medicine; Visit Provider Surgery Vascular Surgery
DX: I65.23 Occlusion and stenosis of bilateral carotid arteries (principal)
CPT/HCPCS: 99214

== ENCOUNTER → 2025-01-26 13:57 | Outpatient (BNVA) | payer MEDICARE, MEDICAID, SELFPAY | PROVIDERS: PCP Internal Medicine; Visit Provider Surgery Vascular Surgery | DX: I65.23 Occlusion and stenosis of bilateral carotid arteries (principal) | CPT/HCPCS: 99212 ==

== ENCOUNTER → 2025-02-17 13:44 | Outpatient (REF) | payer MEDICARE, MEDICAID, SELFPAY ==
--- NOTE | 2025-02-17 13:47 | CA_ITS ---
Transthoracic Echocardiogram Patient (Last, First, Middle): Jeanette Aguilar E Gender: Female Date of : 1945 Age: 79 Procedure Date: 02/17/2025 Procedure Type: Transthoracic Echocardiogram Location: OP Height: 152.4 cm Weight: 64.86 kg BSA: 1.62 m2 Heart Rate: bpm BP: 138 / 76 mmHg [employer] Field Technician: KIP Referring MD: Aurea UMAÑA Symptoms: R01.1 - Cardiac murmur, unspecified Study Quality: Fair Conclusions: - 1. Normal LV ejection fraction of 60-65% with impaired relaxation filling pattern 2. Mild aortic stenosis and regurgitation 3. Normal RV systolic pressure 4. No gross pericardial effusion Findings Procedure Information The patient declines contrast. Left Ventricle Normal left ventricular size, thickness, and systolic function. The visually estimated ejection fraction is between 60-65%. Regional wall motion abnormalities can not be excluded due to suboptimal endocardial definition. Spectral Doppler is indicative of an impaired relaxation filling pattern. E/E prime ratio is between 8 and 15 consistent with indeterminate filling pressures. Right Ventricle Normal right ventricular cavity size. Atria The left atrium is normal in size. Interatrial shunt cannot be excluded. The right atrium was not well visualized. Aortic Valve There is a doming trileaflet aortic valve. There is moderate calcification of the aortic valve. There is mild thickening of the aortic valve. There is mild aortic valve stenosis. The peak aortic gradient is 24 mmHg.The mean gradient is 13 mmHg. The aortic valve area is 1.62 cm2. There is mild aortic valve regurgitation. Mitral Valve There is mild anterior mitral leaflet thickening. There is trace mitral valve regurgitation. There is no mitral valve stenosis. Pulmonic Valve The pulmonic valve was not well visualized. Tricuspid Valve Likely normal tricuspid valve structure and function. There is trace tricuspid valve regurgitation. The right ventricular systolic pressure is normal. The right ventricular systolic pressure is 32 mmHg. Normal right atrial pressure. There is no evidence of pulmonary hypertension. Great Vessels The pulmonary artery was not well visualized. Small plaque is seen in the sino tubular ridge. Venous The inferior vena cava is normal in size and collapses greater than 50% with inspiration. Pericardium/Pleural There is no evidence of pericardial effusion. Prior Study Comparison No significant change compared to prior study dated: 11/11/2018. Measurements 2D Linear Measurements IVSd: 1.00 0.6-0.9/0.6-1.0 cm LVIDd: 3.79 3.9-5.3/4.2-5.9 cm LVIDd Index: 2.34 2.4-3.2/2.2-3.1 cm/m2 LVIDs: 2.60 2.0-3.6 cm LVPWd: 0.68 0.7-1.1 cm LA Diam: 3.30 2.7-3.8/3.0-4.0 cm LAIDs Index: 2.04 1.5-2.3 cm/m2 LV Mass: 113.60 67-162/88-224 g LV Mass Index: 70.12 43-95/49-115 g/m2 LVOT Diam: 1.90 3.0+(-)1.3 cm Mitral Valve MV Pk E: 0.65 MV PK A: 0.91 MV Decel Time: 219.00 E/A: 0.70 E'Lateral: 6.53 E'Medial: 4.46 E/E' Med: 14.50 E/E' Lat: 9.90 PHT: 64.00 MVA PHT: 3.44 Decel [place]: 2.96 Aortic Valve AoV Pk Munir: 2.46 AoV Mn Munir: 1.67 AoV VTI: 0.51 AoV Pk Grad: 24.00 Aov Mn Grad: 13.00 MILO Cont.VTI: 1.62 LVOT LVOT Pk Munir: 1.31 LVOT Mn Munir: 0.92 LVOT VTI: 0.29 LVOT Pk Grad: 7.00 LVOT Mn Grad: 4.00 LVOT Diam: 1.90 LVOT Area: 2.84 Diastolic Function MV Pk E: 0.65 MV Pk A: 0.91 E/A: 0.70 E'Medial: 4.46 E/E' Med: 14.50 E' Laterial: 6.53 E/E' Lat: 9.90 Right Ventricle TAPSE (mm): 23.00 TVS' Munir: 15.30 Tricuspid Valve TR Pk Munir: 2.67 TR Pk Grad: 29.00 RA Press: 3.00 RVSP: 32.00 Great Vessels Aorta Sinus of Valsalva: 2.92 2.0-3.[address] [place]: 2.33 1.7-3.4 cm Ao Asc: 3.30 2.1-3.4 cm Updated in Other Vendor System with Status of Final Musa Shirley MD electronically signed on 02/18/2025 10:09:04 AM with status of Final
== END ==
LOC: HO.CARD 13:44
PROVIDERS: PCP Physician Assistant; Visit Provider Physician Assistant
DX: R42 Dizziness and giddiness (principal); R01.1 Cardiac murmur, unspecified
CPT/HCPCS: 93306

== ENCOUNTER → 2025-02-17 13:47 | Outpatient (BNV) | payer MEDICARE, MEDICAID, SELFPAY | PROVIDERS: PCP Physician Assistant; Visit Provider Internal Medicine Cardiovascular Disease | DX: I35.0 Nonrheumatic aortic (valve) stenosis (principal); I35.1 Nonrheumatic aortic (valve) insufficiency | CPT/HCPCS: 93306 ==